=== PATIENT | female | born 1930 | race Caucasian/White ===

== ENCOUNTER 2016-05-26 14:22 | Inpatient (IN) | payer OTHER ==
[~2016-05-26] VITALS: Ht 167.6 cm; Wt 60.0 kg
[~2016-05-26 14:22] MED LIST: CMD6 PO; CRG125 PO; FLNIN NAE; LEVO100T84 PO; LISI-461 PO; MULT-506 PO; SIMV20TA2 PO
[2016-05-26] MEDS ORDERED: SODIUM CHLORIDE 0.9% 1000ML 1,000 ML IV STA (16:22)
[2016-05-26] MEDS ORDERED: ASPI81TA28 PO (16:34)
[2016-05-26] MEDS ORDERED: CARV6.252 PO (16:34)
[2016-05-26] MEDS ORDERED: CARV3.122 PO (16:34)
[2016-05-26] MEDS ORDERED: LEVO75TA PO (16:34)
[2016-05-26] MEDS ORDERED: OXGN (16:34)
[2016-05-26] MEDS ORDERED: LSNP/30 PO (16:34)
[2016-05-26] MEDS ORDERED: MAGN400T6 PO (16:34)
--- NOTE | 2016-05-26 16:48 | DIAGNOSTIC IMAGING REPORT ---
SINGLE VIEW CHEST CLINICAL HISTORY: Generalized weakness. FINDINGS: An AP, portable, upright chest radiograph is obtained. No prior studies are available for comparison at the time of dictation. The examination is degraded by portable technique and patient rotation. The heart is mildly enlarged and there is atherosclerotic calcification of the thoracic aorta. The pulmonary vasculature is noncongested. There is mild left basilar atelectasis. The lungs and pleural spaces are otherwise clear. Biapical scarring is observed. No pneumothorax is seen. The skeletal structures are osteopenic. The bony thorax is grossly intact. IMPRESSION: Cardiomegaly with no acute cardiopulmonary abnormality. Electronically signed by: Ildefonso Lorenz M.D. 05/26/2016 4:47 PM
--- NOTE | 2016-05-26 16:59 | EMERGENCY ROOM VISIT NOTE ---
History Report prepared by Alhaji: Eliseo Blake Under the Supervision of: Dr. Neelam Avalos M.D. First contact with patient: 16:11 Chief Complaint: WEAKNESS Stated Complaint: WEAKNESS, STOKE SYMPTOMS, REFERRED BY DR Chaudhari Triage Summary: Triage Note: pt reports generalized weakness sine Sunday. Pt was seen by pcp today and sent to ed for further evaluation. pt alert and oriented x 4 in triage. History of Present Illness The patient is an 85 year old female who presents to the Emergency Room with complaints of persistent weakness that has worsened over the past week. The patient noticed the weakness 4 days ago when she had difficulty trying to get up off of the toilet. She has also been struggling more to walk with her walker more than normal. Per patient and patient's family, her facial droop has been worsening over the past week. The patient notes that the weakness is both- sided. She also complains of being more fatigued than usual, has been experiencing some shortness of breath with exertion, and has a cough. The patient denies feeling any pain, fever, increased confusion, difficulty talking , abdominal pain, black or bloody stools, urinary symptoms, or chest pain. Source of History: patient Onset: the past week Position: other (global) Timing: worsening, other (persistent) Associated Symptoms: + SOB (with exertion), + cough, + fatigue, No abdominal pain, No chest pain, No fevers, No hematochezia, No melena, No urinary symptoms Note: Associated symptoms: worsening facial droop Denies: pain, confusion, difficulty talking Review of Systems See HPI for pertinent positives & negatives. A total of 10 systems reviewed and were otherwise negative. Past Medical & Surgical Medical Problems: (1) Sinusitis, acute Family History Patient reports no known family medical history. Social History Smoking Status: Never Smoker Marital Status: Housing Status: lives with family Occupation Status: unemployed Current/Historical Medications Scheduled Aspirin (Aspirin Ec), 81 MG PO QPM Carvedilol (Coreg), 6.25 MG PO QAM Carvedilol (Coreg), 3.125 MG PO QPM Levothyroxine Sodium (Synthroid), 75 MCG PO QAM Lisinopril (Zestril), 30 MG PO QAM Magnesium Oxide (Mag-Ox), 400 MG PO QAM Multivitamin (Multivitamin), 1 TAB PO DAILY Oxygen (Oxygen), 2 LITERS NA PRN Simvastatin (Zocor), 20 MG PO QPM Allergies Coded Allergies: No Known Allergies (Verified , *, 05/26/16) Physical Exam Vital Signs Date Time Temp Pulse Resp B/P Pulse Ox O2 Delivery O2 Flow Rate FiO2 05/26/16 19:33 68 22 163/77 95 Room Air 05/26/16 17:26 61 16 125/62 96 Room Air 05/26/16 16:15 65 05/26/16 16:02 61 20 152/65 96 Room Air 05/26/16 14:27 36.6 85 18 119/59 98 Room Air Physical Exam Vital signs reviewed. General: Well-appearing female, in no significant distress. HEENT: No scleral icterus, PERRLA, neck supple. Atraumatic. Mild right nasal labial fold flattening at rest, resolves with accentuation of facial muscles. Cardiovascular: Regular rate and rhythm, no extra sounds. Pulmonary: Clear to auscultation bilaterally, normal work of breathing. Abdomen: Soft, nontender, nondistended, positive bowel sounds. Musculoskeletal: Atraumatic, no peripheral edema. Neurologic: Patient awake alert and oriented x 3, full strength in all 4 extremities. Cranial nerves 2 through 12 grossly intact. Cerebellar exam intact. Skin: Warm, dry, no rash Medical Decision & Procedures ER Provider Diagnostic Interpretation: X-ray results as stated below per my interpretation and radiologist interpretation. Other radiology results as stated below per my review and radiologist interpretation: CT SCAN OF THE BRAIN WITHOUT IV CONTRAST CLINICAL HISTORY: Generalized weakness. Left-sided facial droop. COMPARISON STUDY: No priors. TECHNIQUE: Unenhanced axial CT scan of the brain is performed from the vertex to the skull base. The examination is modestly degraded by motion artifact. CT DOSE: 749.40 mGy.cm FINDINGS: Brain parenchyma: There are age-related involutional changes noting mild subcortical and periventricular microangiopathic change. There is no hemorrhage, mass effect, or evidence of acute territorial ischemia by CT criteria. Minor-white matter is preserved. No extra-axial fluid collection is seen. Ventricles, sulci, cisterns: Prominent secondary to involutional change. Intracranial vasculature: There is atherosclerotic calcification of the cavernous carotid and vertebral arteries. Calvarium: Unremarkable. Sinuses and mastoids: There is near complete opacification of the right maxillary antrum which contains hyperdense secretions. Trace mucosal thickening is present in the left maxillary antrum. There is mild mucosal thickening within the ethmoid and sphenoid sinuses. The right frontal sinus appears opacified. The mastoid air cells are well pneumatized. Orbits: The bony orbits are grossly intact. There is a left-sided ocular lens implant. IMPRESSION: 1. There is no hemorrhage, mass effect, or evidence of acute territorial ischemia by CT criteria. 2. Paranasal sinus disease as above. Electronically signed by: Ildefonso Lorenz M.D. 05/26/2016 5:23 PM SINGLE VIEW CHEST CLINICAL HISTORY: Generalized weakness. FINDINGS: An AP, portable, upright chest radiograph is obtained. No prior studies are available for comparison at the time of dictation. The examination is degraded by portable technique and patient rotation. The heart is mildly enlarged and there is atherosclerotic calcification of the thoracic aorta. The pulmonary vasculature is noncongested. There is mild left basilar atelectasis. The lungs and pleural spaces are otherwise clear. Biapical scarring is observed. No pneumothorax is seen. The skeletal structures are osteopenic. The bony thorax is grossly intact. IMPRESSION: Cardiomegaly with no acute cardiopulmonary abnormality. Electronically signed by: Ildefonso Lorenz M.D. 05/26/2016 4:47 PM Laboratory Results 05/26/16 16:58 Red Blood Count 4.28, Mean Corpuscular Volume 99.3, Mean Corpuscular Hemoglobin 34.3, Mean Corpuscular Hemoglobin Concent 34.6, Mean Platelet Volume 10.7, Neutrophils (%) (Auto) 50.8, Lymphocytes (%) (Auto) 29.6, Monocytes (%) (Auto) 18.0, Eosinophils (%) (Auto) 0.8, Basophils (%) (Auto) 0.6, Neutrophils # (Auto ) 2.66, Lymphocytes # (Auto) 1.55, Monocytes # (Auto) 0.94, Eosinophils # (Auto ) 0.04, Basophils # (Auto) 0.03 05/26/16 16:58 Test 05/26/16 16:58 05/26/16 17:09 05/26/16 17:40 White Blood Count 5.23 K/uL (4.8-10.8) Red Blood Count 4.28 M/uL (4.2-5.4) Hemoglobin 14.7 g/dL (12.0-16.0) Hematocrit 42.5 % (37-47) Mean Corpuscular Volume 99.3 fL (80-100) Mean Corpuscular Hemoglobin 34.3 pg (25-34) Mean Corpuscular Hemoglobin Concent 34.6 g/dl (32-36) Platelet Count 217 K/uL (130-400) Mean Platelet Volume 10.7 fL (7.4-10.4) Neutrophils (%) (Auto) 50.8 % Lymphocytes (%) (Auto) 29.6 % Monocytes (%) (Auto) 18.0 % Eosinophils (%) (Auto) 0.8 % Basophils (%) (Auto) 0.6 % Neutrophils # (Auto) 2.66 K/uL (1.4-6.5) Lymphocytes # (Auto) 1.55 K/uL (1.2-3.4) Monocytes # (Auto) 0.94 K/uL (0.11-0.59) Eosinophils # (Auto) 0.04 K/uL (0-0.5) Basophils # (Auto) 0.03 K/uL (0-0.2) RDW Standard Deviation 48.1 fL (36.4-46.3) RDW Coefficient of Variation 13.4 % (11.5-14.5) Immature Granulocyte % (Auto) 0.2 % Immature Granulocyte # (Auto) 0.01 K/uL (0.00-0.02) Anion Gap 15.0 mmol/L (3-11) Est Creatinine Clear Calc Drug Dose 43.9 ml/min Estimated GFR () 66.7 Estimated GFR (Non- 57.6 BUN/Creatinine Ratio 30.7 (10-20) Calcium Level 8.7 mg/dl (8.5-10.1) Magnesium Level 2.0 mg/dl (1.8-2.4) Total Bilirubin 0.6 mg/dl (0.2-1) Direct Bilirubin 0.2 mg/dl (0-0.2) Aspartate Amino Transf (AST/SGOT) 29 U/L (15-37) Alanine Aminotransferase (ALT/SGPT) 19 U/L (12-78) Alkaline Phosphatase 55 U/L (45-117) Total Creatine Kinase 32 U/L (26-192) Creatine Kinase MB 3.0 ng/ml (0.5-3.6) Creatine Kinase MB Ratio 9.4 (0-3.0) Total Protein 7.2 gm/dl (6.4-8.2) Albumin 3.3 gm/dl (3.4-5.0) Bedside Troponin I 0.000 ng/ml (0-0.045) Urine Color DK YELLOW Urine Appearance CLEAR (CLEAR) Urine pH 5.0 (4.5-7.5) Urine Specific [place] 1.017 (1.000-1.030) Urine Protein NEG (NEG) Urine Glucose (UA) NEG (NEG) Urine Ketones 2+ (NEG) Urine Occult Blood NEG (NEG) Urine Nitrite NEG (NEG) Urine Bilirubin NEG (NEG) Urine Urobilinogen NEG (NEG) Urine Leukocyte Esterase NEG (NEG) Laboratory results per my review. Medications Administered Medications (Trade) Dose Ordered Sig/Rupinder Route Start Time Stop Time Status Last Admin Dose Admin Sodium Chloride 1,000 ml @ 125 mls/hr Q8H STAT IV 05/26/16 16:22 05/26/16 21:50 DC 05/26/16 17:31 125 MLS/HR Ampicillin Sodium/ Sulbactam Sodium/ Sodium Chloride (Unasyn Inj/Nss 100ml) 108 ml @ 200 mls/hr ONE ONCE IV 05/26/16 19:00 05/26/16 19:32 DC 05/26/16 19:32 200 MLS/HR ED Course 1615: Past medical records reviewed. The patient was evaluated in room A12. A complete history and physical examination was performed. 1622: Ordered NSS 1000 ml @ 125 mls/hr IV. 1934: At this time, I consulted with Dr. Adams - Hospitalist [facility] about the patient's case and he agreed to accept the patient for further evaluation. Medical Decision Differential diagnosis: Etiologies such as metabolic, infection, hypo/hyperglycemia, electrolyte abnormalities, cardiac sources, intracerebral event, toxicologic, neurologic, as well as others were entertained. current condition. This patient was evaluated and appeared to be in no significant distress. IV access was obtained and laboratory work was drawn. Patient was placed on the classroom monitor and found to be in a normal sinus rhythm. Physical examination is fairly unrevealing. CT scan of the head was performed and reveals no evidence of acute intracranial pathology, there is significant opacification of the right frontal and maxillary sinuses. Patient's laboratory work reveals a normal white blood cell count, negative cardiac enzymes. Urinalysis is clear. She was gently hydrated with normal saline solution. Patient was administered IV Unasyn. Given her diffuse weakness and inability to ambulate safely, she will be evaluated by the hospitalist service for further management. Patient's family is aware of the plan and agrees. Consults Time Called: 1929 Consulting Physician: Dr. Adams - Hospitalist [facility] [place] Returned Call: 1933 At this time, I consulted with Dr. Adams about the patient's case and he agreed to accept the patient for further evaluation. Impression Primary Impression: Frontal sinusitis Additional Impressions: Maxillary sinusitis, Ambulatory dysfunction, Vertigo Scribe Attestation The scribe's documentation has been prepared under my direction and personally reviewed by me in its entirety. I confirm that the note above accurately reflects all work, treatment, procedures, and medical decision making performed by me. Departure Information Dispostion Being Evaluated By Hospitalist Referrals RV. Vieira MD (PCP)
--- NOTE | 2016-05-26 17:25 | DIAGNOSTIC IMAGING REPORT ---
CT SCAN OF THE BRAIN WITHOUT IV CONTRAST CLINICAL HISTORY: Generalized weakness. Left-sided facial droop. COMPARISON STUDY: No priors. TECHNIQUE: Unenhanced axial CT scan of the brain is performed from the vertex to the skull base. The examination is modestly degraded by motion artifact. CT DOSE: 749.40 mGy.cm FINDINGS: Brain parenchyma: There are age-related involutional changes noting mild subcortical and periventricular microangiopathic change. There is no hemorrhage, mass effect, or evidence of acute territorial ischemia by CT criteria. Minor-white matter is preserved. No extra-axial fluid collection is seen. Ventricles, sulci, cisterns: Prominent secondary to involutional change. Intracranial vasculature: There is atherosclerotic calcification of the cavernous carotid and vertebral arteries. Calvarium: Unremarkable. Sinuses and mastoids: There is near complete opacification of the right maxillary antrum which contains hyperdense secretions. Trace mucosal thickening is present in the left maxillary antrum. There is mild mucosal thickening within the ethmoid and sphenoid sinuses. The right frontal sinus appears opacified. The mastoid air cells are well pneumatized. Orbits: The bony orbits are grossly intact. There is a left-sided ocular lens implant. IMPRESSION: 1. There is no hemorrhage, mass effect, or evidence of acute territorial ischemia by CT criteria. 2. Paranasal sinus disease as above. Electronically signed by: Ildefonso Lorenz M.D. 05/26/2016 5:23 PM
[2016-05-26 17:34] LABS: BASO % 0.6 %; BASO ABS # 0.03 K/uL (0-0.2); COMPLETE YES; EOS % 0.8 %; HEMATOCRIT 42.5 % (37-47); IG% 0.2 %; LYMPH % 29.6 %; LYMPH ABS # 1.55 K/uL (1.2-3.4); MEAN CELL VOLUME 99.3 fL (80-100); MEAN CORPUSCULAR HEMOGLOBIN 34.3 pg (25-34); MEAN CORPUSCULAR HGB CONC 34.6 g/dl (32-36); MEAN PLATELET VOLUME 10.7 fL (7.4-10.4); NEUT % 50.8 %; PLATELET COUNT 217 K/uL (130-400); RED BLOOD COUNT 4.28 M/uL (4.2-5.4); WHITE BLOOD COUNT 5.23 K/uL (4.8-10.8)
[2016-05-26 17:59] LABS: URINE APPEARANCE CLEAR (CLEAR); URINE COLOR DK YELLOW; URINE NITRITE NEG (NEG); URINE SPECIFIC GRAVITY 1.017 (1.000-1.030); UROBILINOGEN NEG (NEG); ZZURINE CULT IF INDIC CATH NO
[2016-05-26 18:03] LABS: URINE BILIRUBIN NEG (NEG)
[2016-05-26 18:04] LABS: MANUAL MICROSCOPIC REQUIRED? NO; REVIEW REQ? NO
[2016-05-26 18:19] LABS: BUN/CREATININE RATIO 30.7 (10-20); CALCIUM 8.7 mg/dl (8.5-10.1); CKMB/CK RATIO 9.4 (0-3.0); CREATININE 0.92 mg/dl (0.60-1.20); POTASSIUM 4.4 mmol/L (3.5-5.1)
[2016-05-26] MEDS ORDERED: AMPICILLIN/SULBACTAM SOD INJ 3,000 MG in SODIUM CHLORIDE 0.9% 100ML 100 ML IV ONE (19:00)
[2016-05-26] MEDS ORDERED: NSS + 20MEQ KCL 1000ML 1,000 ML IV SCH (19:57)
[2016-05-26] MEDS ORDERED: ACETAMINOPHEN 325 MG TAB PO PRN (20:00)
[2016-05-26] MEDS ORDERED: ONDANSETRON INJ 2 MG/ML 2 ML VIAL IV PRN (20:00)
[2016-05-26 21:35] VITALS: BP 145/77; PULSE 63; TEMP 36.7; O2SAT 97
--- NOTE | 2016-05-26 22:03 | History and Physical ---
History & Physical Date & Time of Service: May 26, 2016 at 21:42 Chief Complaint: Weakness, Stoke Symptoms, Referred By Primary Care Physician: RV. Vieira MD History of Present Illness Source: patient, family The patient is an 85-year-old female who presents emergency department with complaint of worsening weakness over the past week, to the point that she is not able to get up off the commode earlier in the day today. Her son who is with her, reports that she was struggling more to walk and had more imbalance and near falls. Son reports that his mother's facial droop may been worsening over the past week. She reports that she comes some shortness of breath with exertion, has an occasional cough, has denied any chest pain. Family History Patient reports no known family medical history. Social History Smoking Status: Never Smoker Smokeless Tobacco Use: No Alcohol Use: none Drug Use: none Marital Status: Occupational Status: unemployed Immunizations History of Influenza Vaccine: Yes History of Tetanus Vaccine?: Yes Tetanus Immunization Date: Feb 19, 2005 History of Pneumococcal: Yes Pneumococcal Date: Jul 22, 2003 History of Hepatitis B Vaccine: No Multi-Drug Resistant Organisms History of MDRO: No Allergies Coded Allergies: No Known Allergies (Verified , *, 05/26/16) Home Medications Scheduled Aspirin (Aspirin Ec), 81 MG PO QPM Carvedilol (Coreg), 6.25 MG PO QAM Carvedilol (Coreg), 3.125 MG PO QPM Levothyroxine Sodium (Synthroid), 75 MCG PO QAM Lisinopril (Zestril), 30 MG PO QAM Magnesium Oxide (Mag-Ox), 400 MG PO QAM Multivitamin (Multivitamin), 1 TAB PO DAILY Oxygen (Oxygen), 2 LITERS NA PRN Simvastatin (Zocor), 20 MG PO QPM Review of Systems The patient denies chest pain, palpitations, lower extremity swelling, vision change, hearing change, sore throat, fevers, chills, sweats, weight change, nausea, vomiting, abdominal pain, pelvic pain, blood in urine or stool, dysuria , urinary frequency or urgency, headache, rash, abnormal bruising or bleeding, focal weakness, arthralgias or myalgias, back or neck pain, night sweats, or allergy symptoms. The review of systems is otherwise negative other than for that already noted above, and at least 10 systems have been reviewed. Physical Exam Vital Signs Date Time Temp Pulse Resp B/P Pulse Ox O2 Delivery O2 Flow Rate FiO2 05/26/16 21:35 36.7 63 19 145/77 97 Room Air 05/26/16 21:04 66 15 135/63 98 Room Air 05/26/16 20:37 67 05/26/16 19:33 68 22 163/77 95 Room Air 05/26/16 17:26 61 16 125/62 96 Room Air 05/26/16 16:15 65 05/26/16 16:02 61 20 152/65 96 Room Air 05/26/16 14:27 36.6 85 18 119/59 98 Room Air The patient is an 85-year-old female appearing stated age, who is awake, alert and oriented 3, normocephalic and atraumatic, lying in bed and in no acute distress. HEENT--PERRL, EOMI, mucous membranes and oropharynx dry. Neck--supple, no JVD or bruits, thyroid normal, trachea midline, no adenopathy. Heart--normal S1 and S2, no extra beats, no murmurs, rubs or gallops. Lungs--clear bilaterally with good air movement, no respiratory distress, no accessory muscle use. Abdomen--normal bowel sounds and soft, nontender and nondistended, no hernias or masses, no organomegaly. Extremities--no cyanosis, clubbing or edema. There are good distal pulses b/l. Dermatologic--normal skin turgor, normal color, warm and dry, no abnormal lymph nodes, no rash. Neurologic--cranial nerves II through XII grossly intact. Psychiatric--normal affect. Diagnostics Laboratory Results Results Past 24 Hours Test 05/26/16 16:58 05/26/16 17:09 05/26/16 17:40 Range/Units White Blood Count 5.23 4.8-10.8 K/uL Red Blood Count 4.28 4.2-5.4 M/uL Hemoglobin 14.7 12.0-16.0 g/dL Hematocrit 42.5 37-47 % Mean Corpuscular Volume 99.3 80-100 fL Mean Corpuscular Hemoglobin 34.3 25-34 pg Mean Corpuscular Hemoglobin Concent 34.6 32-36 g/dl Platelet Count 217 130-400 K/uL Mean Platelet Volume 10.7 7.4-10.4 fL Neutrophils (%) (Auto) 50.8 % Lymphocytes (%) (Auto) 29.6 % Monocytes (%) (Auto) 18.0 % Eosinophils (%) (Auto) 0.8 % Basophils (%) (Auto) 0.6 % Neutrophils # (Auto) 2.66 1.4-6.5 K/uL Lymphocytes # (Auto) 1.55 1.2-3.4 K/uL Monocytes # (Auto) 0.94 0.11-0.59 K/uL Eosinophils # (Auto) 0.04 0-0.5 K/uL Basophils # (Auto) 0.03 0-0.2 K/uL RDW Standard Deviation 48.1 36.4-46.3 fL RDW Coefficient of Variation 13.4 11.5-14.5 % Immature Granulocyte % (Auto) 0.2 % Immature Granulocyte # (Auto) 0.01 0.00-0.02 K/uL Sodium Level 137 136-145 mmol/L Potassium Level 4.4 3.5-5.1 mmol/L Chloride Level 98 98-107 mmol/L Carbon Dioxide Level 24 21-32 mmol/L Anion Gap 15.0 3-11 mmol/L Blood Urea Nitrogen 28 7-18 mg/dl Creatinine 0.92 0.60-1.20 mg/dl Est Creatinine Clear Calc Drug Dose 43.9 ml/min Estimated GFR () 66.7 Estimated GFR (Non- 57.6 BUN/Creatinine Ratio 30.7 10-20 Random Glucose 52 70-99 mg/dl Calcium Level 8.7 8.5-10.1 mg/dl Magnesium Level 2.0 1.8-2.4 mg/dl Total Bilirubin 0.6 0.2-1 mg/dl Direct Bilirubin 0.2 0-0.2 mg/dl Aspartate Amino Transf (AST/SGOT) 29 15-37 U/L Alanine Aminotransferase (ALT/SGPT) 19 12-78 U/L Alkaline Phosphatase 55 45-117 U/L Total Creatine Kinase 32 26-192 U/L Creatine Kinase MB 3.0 0.5-3.6 ng/ml Creatine Kinase MB Ratio 9.4 0-3.0 Total Protein 7.2 6.4-8.2 gm/dl Albumin 3.3 3.4-5.0 gm/dl Bedside Troponin I 0.000 0-0.045 ng/ml Urine Color DK YELLOW Urine Appearance CLEAR CLEAR Urine pH 5.0 4.5-7.5 Urine Specific Webster 1.017 1.000-1.030 Urine Protein NEG NEG Urine Glucose (UA) NEG NEG Urine Ketones 2+ NEG Urine Occult Blood NEG NEG Urine Nitrite NEG NEG Urine Bilirubin NEG NEG Urine Urobilinogen NEG NEG Urine Leukocyte Esterase NEG NEG Diagnostic Radiology Patient Name: AUSTIN GREENE Unit Number: [id number] Dictated: 05/26/161719 Transcribed: 05/26/161719 EV Printed Date/Time: [~ rep prt dt]/[~ rep prt tm] [~ rep ct labl] - [~ rep ct ivnm] [facility] [place] [address] Dictated: 05/26/161719 Transcribed: 05/26/161719 EV Printed Date/Time: [~ rep prt dt]/[~ rep prt tm] [~ rep ct labl] - [~ rep ct ivnm] CT SCAN OF THE BRAIN WITHOUT IV CONTRAST CLINICAL HISTORY: Generalized weakness. Left-sided facial droop. COMPARISON STUDY: No priors. TECHNIQUE: Unenhanced axial CT scan of the brain is performed from the vertex to the skull base. The examination is modestly degraded by motion artifact. CT DOSE: 749.40 mGy.cm FINDINGS: Brain parenchyma: There are age-related involutional changes noting mild subcortical and periventricular microangiopathic change. There is no hemorrhage, mass effect, or evidence of acute territorial ischemia by CT criteria. Minor-white matter is preserved. No extra-axial fluid collection is seen. Ventricles, sulci, cisterns: Prominent secondary to involutional change. Intracranial vasculature: There is atherosclerotic calcification of the cavernous carotid and vertebral arteries. Calvarium: Unremarkable. Sinuses and mastoids: There is near complete opacification of the right maxillary antrum which contains hyperdense secretions. Trace mucosal thickening is present in the left maxillary antrum. There is mild mucosal thickening within the ethmoid and sphenoid sinuses. The right frontal sinus appears opacified. The mastoid air cells are well pneumatized. Orbits: The bony orbits are grossly intact. There is a left-sided ocular lens implant. IMPRESSION: 1. There is no hemorrhage, mass effect, or evidence of acute territorial ischemia by CT criteria. 2. Paranasal sinus disease as above. Electronically signed by: Ildefonso Lorenz M.D. 05/26/2016 5:23 PM The status of this report is Signed. Draft = Not yet reviewed or approved by Radiologist. Signed = Reviewed and approved by Radiologist. <AttendingPhy></AttendingPhy> <FamilyPhy>RV. Vieira MD</ FamilyPhy> <PrimaryPhy>RV. Vieira MD</PrimaryPhy> <UnitNumber> [id number]</UnitNumber> <VisitNumber>[id number]</VisitNumber> <PatientName> AUSTIN GREENE</PatientName> <DateOfBirth>1930</DateOfBirth> <Location> [facility]</Location> <ServiceDate>05/26/16</ServiceDate> <MNE>ESINDI</MNE> < OrderingPhy>Neelam Avalos M.D.</OrderingPhy> <OrderingPhyMNE>f rep ord dr palacios</OrderingPhyMNE> <DictatingPhyMNE>f rep dict dr palacios</DictatingPhyMNE> < CCListMNE>f rep ct mne</CCListMNE> <AdmittingPhyMNE>f pt admit dr palacios</ AdmittingPhyMNE> <AttendingPhyMNE>f pt attend dr palacios</AttendingPhyMNE> <ConsultingPhyMNE>f pt consult dr palacios</ConsultingPhyMNE> <FamilyPhyMNE>f pt fam dr palacios</FamilyPhyMNE> <OtherPhyMNE>f pt other dr palacios</OtherPhyMNE> < PrimaryPhyMNE>f pt prim care dr palacios</PrimaryPhyMNE> <ReferringPhyMNE>f pt referring dr palacios</ReferringPhyMNE> Patient Name: AUSTIN GREENE Unit Number: [id number] Dictated: 05/26/161644 Transcribed: 05/26/161644 EV Printed Date/Time: [~ rep prt dt]/[~ rep prt tm] [~ rep ct labl] - [~ rep ct ivnm] [facility] [place] [address] Dictated: 05/26/161644 Transcribed: 05/26/161644 EV Printed Date/Time: [~ rep prt dt]/[~ rep prt tm] [~ rep ct labl] - [~ rep ct ivnm] CLINICAL HISTORY: Generalized weakness. FINDINGS: An AP, portable, upright chest radiograph is obtained. No prior studies are available for comparison at the time of dictation. The examination is degraded by portable technique and patient rotation. The heart is mildly enlarged and there is atherosclerotic calcification of the thoracic aorta. The pulmonary vasculature is noncongested. There is mild left basilar atelectasis. The lungs and pleural spaces are otherwise clear. Biapical scarring is observed. No pneumothorax is seen. The skeletal structures are osteopenic. The bony thorax is grossly intact. IMPRESSION: Cardiomegaly with no acute cardiopulmonary abnormality. Electronically signed by: Ildefonso Lorenz M.D. 05/26/2016 4:47 PM The status of this report is Signed. Draft = Not yet reviewed or approved by Radiologist. Signed = Reviewed and approved by Radiologist. <AttendingPhy></AttendingPhy> <FamilyPhy>RV. Vieira MD</ FamilyPhy> <PrimaryPhy>RV. Vieira MD</PrimaryPhy> <UnitNumber> [id number]</UnitNumber> <VisitNumber>[id number]</VisitNumber> <PatientName> AUSTIN GREENE</PatientName> <DateOfBirth>1930</DateOfBirth> <Location> [facility]</Location> <ServiceDate>05/26/16</ServiceDate> <MNE>ESINDI</MNE> < OrderingPhy>Neelam Avalos M.D.</OrderingPhy> <OrderingPhyMNE>f rep ord dr palacios</OrderingPhyMNE> <DictatingPhyMNE>f rep dict dr palacios</DictatingPhyMNE> < CCListMNE>f rep ct philip</CCListMNE> <AdmittingPhyMNE>f pt admit dr palacios</ AdmittingPhyMNE> <AttendingPhyMNE>f pt attend dr palacios</AttendingPhyMNE> <ConsultingPhyMNE>f pt consult dr palacios</ConsultingPhyMNE> <FamilyPhyMNE>f pt fam dr palacios</FamilyPhyMNE> <OtherPhyMNE>f pt other dr palacios</OtherPhyMNE> < PrimaryPhyMNE>f pt prim care dr palacios</PrimaryPhyMNE> <ReferringPhyMNE>f pt referring dr palacios</ReferringPhyMNE> EKG EKG shows normal sinus rhythm with first-degree heart block at a rate of 59, with left axis deviation, left bundle-branch block, and no acute ST-T changes. Impression Assessment and Plan Progressive generalized weakness, dehydration, acute sinusitis, hypoglycemia-- the patient will be admitted to the medical floor, as she is unable to take care of herself at home. She will be placed on D5 normal saline with potassium chloride 20 mEq at 100 ML's per hour, ceftriaxone 1 g IV daily, Zofran 4 mg IV every 6 hours when necessary, and pantoprazole 40 mg IV daily. Hypertension--continue enteric coated aspirin 81 mg by mouth every afternoon, carvedilol 3.125 mg by mouth every afternoon and 6.25 mg by mouth every morning with hold parameters. We will hold lisinopril 30 mg by mouth every morning and magnesium oxide 40 mg by mouth every morning. Hypothyroidism--continue levothyroxine sodium 75 g by mouth every morning. Hyperlipidemia--continue simvastatin 20 mg by mouth every afternoon. General debilitation--consult PT and OT. Level of Care Med/Surg Advanced Directives Existing Advance Directive: No Existing Living Will: No Existing Power of Vending Machine Mechanic: No Resuscitation Status FULL RESUSCITATION VTE Prophylaxis VTE Risk Assessment Done? Y/N: Yes Risk Level: Moderate Given or contraindicated: SCD's
[2016-05-26] MEDS: SIMVASTATIN 20 MG TAB PO SCH (22:25)
[2016-05-26] MEDS: D5NSS + 20MEQ KCL 1,000 ML IV SCH (22:25)
[2016-05-26] MEDS: CEFTRIAXONE SOD INJ 1 GM in DEXTROSE 5% ADD-VANTAGE 50ML 50 ML IV SCH (22:25)
[2016-05-26] MEDS: CARVEDILOL 3.125 MG TAB PO SCH (22:26)
[2016-05-26] MEDS: ASPIRIN 81 MG ECTAB PO SCH (22:26)
[2016-05-26] MEDS ORDERED: IV FLUIDS COMPLETED PRN (23:30)
[2016-05-26 23:58] VITALS: BP 136/71; PULSE 64; TEMP 36.5; O2SAT 96
[2016-05-27 01:30] VITALS: O2SAT 97; Ht 167.6 cm; Wt 60.0 kg
[2016-05-27] MEDS: D5NSS + 20MEQ KCL 1,000 ML IV SCH ×3 (05:36→21:47)
[2016-05-27 06:00] LABS: BASO % 0.4 %; BASO ABS # 0.02 K/uL (0-0.2); COMPLETE YES; EOS % 2.2 %; HEMATOCRIT 37.2 % (37-47); IG% 0.2 %; LYMPH % 28.7 %; LYMPH ABS # 1.46 K/uL (1.2-3.4); MEAN CELL VOLUME 96.1 fL (80-100); MEAN CORPUSCULAR HEMOGLOBIN 33.3 pg (25-34); MEAN CORPUSCULAR HGB CONC 34.7 g/dl (32-36); MEAN PLATELET VOLUME 10.6 fL (7.4-10.4); MONO % 16.5 %; PLATELET COUNT 184 K/uL (130-400); RED BLOOD COUNT 3.87 M/uL (4.2-5.4); WHITE BLOOD COUNT 5.09 K/uL (4.8-10.8)
[2016-05-27 06:09] LABS: INR 1.1 (0.9-1.1); PARTIAL THROMBOPLASTIN RATIO 1.1
[2016-05-27 06:26] LABS: ALT/SGPT 17 U/L (12-78); AST/SGOT 21 U/L (15-37); BLOOD UREA NITROGEN 20 mg/dl (7-18); BUN/CREATININE RATIO 27.9 (10-20); CALCIUM 7.6 mg/dl (8.5-10.1); CARBON DIOXIDE 25 mmol/L (21-32); CHLORIDE 105 mmol/L (98-107); CREATININE 0.72 mg/dl (0.60-1.20); GLUCOSE 133 mg/dl (70-99); MAGNESIUM 1.8 mg/dl (1.8-2.4); POTASSIUM 4.1 mmol/L (3.5-5.1); SODIUM 140 mmol/L (136-145)
[2016-05-27] MEDS: LEVOTHYROXINE 75 MCG TAB PO SCH (06:26)
[2016-05-27 06:45] LABS: ALKALINE PHOSPHATASE 45 U/L (45-117)
[2016-05-27 07:32] VITALS: BP 151/76; PULSE 70; TEMP 36.8; O2SAT 93
[2016-05-27] MEDS ORDERED: INFLUENZA VIRUS QUAD VACCINE 0.5 ML SYR IM. ONE (08:00)
[2016-05-27] MEDS ORDERED: PNEUMOCOCCAL ADMINISTRATION CHARGE ONE (08:00)
[2016-05-27] MEDS ORDERED: INFLUENZA ADMINISTRATION CHARGE ONE (08:00)
[2016-05-27] MEDS ORDERED: PNEUMOCOCCAL POLYSACCHARIDES 25 MCG/0.5 ML VIAL/SYR IM. ONE (08:00)
[2016-05-27] MEDS: MAGNESIUM OXIDE 400 MG TAB PO SCH (08:50)
[2016-05-27] MEDS: MULTIVITAMIN TAB PO SCH (08:50)
[2016-05-27] MEDS: CARVEDILOL 6.25 MG TAB PO SCH (08:51)
[2016-05-27] MEDS: LACTOBACILLUS ACIDOPHILUS (FLORANEX) TAB PO SCH ×4 (08:51→16:54)
[2016-05-27 15:07] VITALS: BP 150/85; PULSE 71; TEMP 36.7; O2SAT 94
--- NOTE | 2016-05-27 18:03 | Progress Note ---
Subjective Date of Service: May 27, 2016. Subjective Pt evaluation today including: conversation w/ patient, physical exam, chart review, lab review, review of inpatient medication list feeling weak. some congestion. facial droop old but slowly getting worse. family notes that she was living with them - they'd built the house in a way that she would have one-floor access to all she'd need, and not have to walk more than about 10ft. note that she's been with walker for quite a while but gradually getting worse for quite a while as well. she's gotten to the point that they can't take care of her in her present state. would like to see her get stronger to where she can live with them again, but know that right now it would be too dangerous. Problem List Medical Problems: (1) Ambulatory dysfunction Status: Acute (2) Frontal sinusitis Status: Acute (3) Maxillary sinusitis Status: Acute (4) Vertigo Status: Acute Review of Systems ros otherwise negative except for as above Objective Vital Signs Date Time Temp Pulse Resp B/P Pulse Ox O2 Delivery O2 Flow Rate FiO2 05/27/16 16:05 Room Air 05/27/16 15:07 36.7 71 20 150/85 94 Room Air 05/27/16 08:25 Room Air 05/27/16 07:32 36.8 70 18 151/76 93 Room Air 05/27/16 01:30 97 Room Air 05/26/16 23:58 36.5 64 17 136/71 96 Room Air 05/26/16 21:40 63 19 145/77 97 05/26/16 21:35 36.7 63 19 145/77 97 Room Air 05/26/16 21:04 66 15 135/63 98 Room Air 05/26/16 20:37 67 05/26/16 19:33 68 22 163/77 95 Room Air Physical Exam General Appearance: no apparent distress Eyes: EOMI ENT: hearing grossly normal, + pertinent finding (tenderness over maxillary sinuses) Respiratory/Chest: lungs clear, normal breath sounds, no respiratory distress, no accessory muscle use Cardiovascular: regular rate, rhythm Abdomen: non tender, soft Extremities: normal range of motion Neurologic/Psychiatric: teacher adventure education II-XII nml as tested (does have L sided facial droop but corrects with movement, and no other focal neuro deficits), no motor/ sensory deficits (see above otherwise), alert Skin: normal color Comments: MSK - significant DIFFUSE muscle wasting Laboratory Results Last 24 Hours Test 05/27/16 05:33 White Blood Count 5.09 K/uL Red Blood Count 3.87 M/uL Hemoglobin 12.9 g/dL Hematocrit 37.2 % Mean Corpuscular Volume 96.1 fL Mean Corpuscular Hemoglobin 33.3 pg Mean Corpuscular Hemoglobin Concent 34.7 g/dl Platelet Count 184 K/uL Mean Platelet Volume 10.6 fL Neutrophils (%) (Auto) 52.0 % Lymphocytes (%) (Auto) 28.7 % Monocytes (%) (Auto) 16.5 % Eosinophils (%) (Auto) 2.2 % Basophils (%) (Auto) 0.4 % Neutrophils # (Auto) 2.65 K/uL Lymphocytes # (Auto) 1.46 K/uL Monocytes # (Auto) 0.84 K/uL Eosinophils # (Auto) 0.11 K/uL Basophils # (Auto) 0.02 K/uL RDW Standard Deviation 45.7 fL RDW Coefficient of Variation 13.2 % Immature Granulocyte % (Auto) 0.2 % Immature Granulocyte # (Auto) 0.01 K/uL Prothrombin Time 12.0 SECONDS Prothromb Time International Ratio 1.1 Activated Partial Thromboplast Time 29.6 SECONDS Partial Thromboplastin Ratio 1.1 Sodium Level 140 mmol/L Potassium Level 4.1 mmol/L Chloride Level 105 mmol/L Carbon Dioxide Level 25 mmol/L Anion Gap 10.0 mmol/L Blood Urea Nitrogen 20 mg/dl Creatinine 0.72 mg/dl Est Creatinine Clear Calc Drug Dose 55.4 ml/min Estimated GFR () 89.8 Estimated GFR (Non- 77.4 BUN/Creatinine Ratio 27.9 Random Glucose 133 mg/dl Calcium Level 7.6 mg/dl Magnesium Level 1.8 mg/dl Total Bilirubin 0.4 mg/dl Direct Bilirubin < 0.1 mg/dl Aspartate Amino Transf (AST/SGOT) 21 U/L Alanine Aminotransferase (ALT/SGPT) 17 U/L Alkaline Phosphatase 45 U/L Total Protein 5.8 gm/dl Albumin 2.6 gm/dl Assessment and Plan Progressive generalized weakness, -multifactorial - family relates a story of worsening weakness followed by eating less followed by worse weakness and so on. likely dehydration and sinusitis are the "straw that broke the camel's back" -almost certainly will need SNF or rehab at this point - and then hopefully can work her way back to being able to be at home w family - but clearly not safe right now dehydration -from poor PO intake - IVFs acute sinusitis, -on rocephin - can likely change to PO abx soon hypoglycemia- -from poor reserve. dextrose in IVFs for now, follow PO intake protein/calorie malnutrition -protein supplements, open winder consult, worrisome prognostically as weak as she is hypocalcemia -check vitamin D facial droop -pt and family note this is chronic. does correct with movement. has apparently been getting more pronounced but family suspects this is because she' s been getting more gaunt with ongoing weight loss. has no other focal neuro deficits. no abrupt onset of either the drooping to begin with or the worsening - both have been gradual. does not appear stroke like for all these reasons. beyond that pt and family both decline any further w/u at this time Hypertension--continue enteric coated aspirin 81 mg by mouth every afternoon, carvedilol 3.125 mg by mouth every afternoon and 6.25 mg by mouth every morning with hold parameters. We will hold lisinopril 30 mg by mouth every morning and magnesium oxide 40 mg by mouth every morning. Hypothyroidism--continue levothyroxine sodium 75 g by mouth every morning. Hyperlipidemia--continue simvastatin 20 mg by mouth every afternoon. DVT proph -heparin SQ family confirms her ADRs to be DNR
[2016-05-27] MEDS: CARVEDILOL 3.125 MG TAB PO SCH (19:52)
[2016-05-27] MEDS: SIMVASTATIN 20 MG TAB PO SCH (19:52)
[2016-05-27] MEDS: ASPIRIN 81 MG ECTAB PO SCH (19:52)
[2016-05-27] MEDS: HEPARIN SOD 5000 UNIT/0.5 ML CARP SQ SCH (20:00)
[2016-05-27] MEDS: BOOST VANILLA PO SCH ×2 (20:04)
[2016-05-27] MEDS: CEFTRIAXONE SOD INJ 1 GM in DEXTROSE 5% ADD-VANTAGE 50ML 50 ML IV SCH (21:47)
[2016-05-28 00:07] VITALS: BP 138/73; PULSE 82; TEMP 36.6; O2SAT 96
[2016-05-28] MEDS: LEVOTHYROXINE 75 MCG TAB PO SCH (06:13)
[2016-05-28 07:17] LABS: CALCIUM 7.5 mg/dl (8.5-10.1); CREATININE 0.62 mg/dl (0.60-1.20); POTASSIUM 4.4 mmol/L (3.5-5.1)
[2016-05-28 07:33] VITALS: BP 129/71; PULSE 74; TEMP 37; O2SAT 97
[2016-05-28] MEDS: CARVEDILOL 6.25 MG TAB PO SCH (07:53)
[2016-05-28] MEDS: LACTOBACILLUS ACIDOPHILUS (FLORANEX) TAB PO SCH ×3 (07:53→17:29)
[2016-05-28] MEDS: MAGNESIUM OXIDE 400 MG TAB PO SCH (07:53)
[2016-05-28] MEDS: MULTIVITAMIN TAB PO SCH (07:53)
[2016-05-28] MEDS: HEPARIN SOD 5000 UNIT/0.5 ML CARP SQ SCH ×2 (07:56→20:27)
[2016-05-28] MEDS: BOOST VANILLA PO SCH ×6 (07:56→20:05)
[2016-05-28] MEDS: D5NSS + 20MEQ KCL 1,000 ML IV SCH (08:24)
[2016-05-28] MEDS ORDERED: SODIUM CHLORIDE 0.65% NA SOLN 45 ML (OCEAN) PRN (15:00)
[2016-05-28] MEDS ORDERED: FEXOFENADINE HCL 60 MG TAB PO ONE (15:00)
[2016-05-28 15:22] VITALS: BP 138/84; PULSE 72; TEMP 37.3; O2SAT 96
[2016-05-28] MEDS: TRIAMCINOLONE ACET NASAL SPRAY 10.8ML BTL NAE SCH (15:30)
[2016-05-28] MEDS: ASPIRIN 81 MG ECTAB PO SCH (20:06)
[2016-05-28] MEDS: SIMVASTATIN 20 MG TAB PO SCH (20:06)
[2016-05-28] MEDS: FEXOFENADINE HCL 60 MG TAB PO SCH (20:07)
[2016-05-28] MEDS: CARVEDILOL 3.125 MG TAB PO SCH (20:28)
[2016-05-28 23:59] VITALS: BP 147/77; PULSE 77; TEMP 36.7; O2SAT 92
--- NOTE | 2016-05-29 00:14 | Progress Note ---
Subjective Date of Service: May 28, 2016. Subjective Pt evaluation today including: conversation w/ patient, conversation w/ family , physical exam, chart review, lab review, review of inpatient medication list Pain: none PO Intake: fair at best patient with weeks to months of difficulty getting out of her chair, walking, etc symptoms worsened considerably this week +numbness in both legs denies myalgias Problem List Medical Problems: (1) Ambulatory dysfunction Status: Acute (2) Frontal sinusitis Status: Acute (3) Maxillary sinusitis Status: Acute (4) Vertigo Status: Acute Review of Systems Constitutional: No chills, No fever Respiratory: No cough, No shortness of breath Cardiac: No chest pain Abdomen: No pain Objective Vital Signs Date Time Temp Pulse Resp B/P Pulse Ox O2 Delivery O2 Flow Rate FiO2 05/28/16 23:59 36.7 77 18 147/77 92 Room Air 05/28/16 20:00 Room Air 05/28/16 15:22 37.3 72 20 138/84 96 05/28/16 15:15 Room Air 05/28/16 08:10 Room Air 05/28/16 07:33 37.0 74 16 129/71 97 Room Air 05/28/16 00:07 36.6 82 18 138/73 96 Nasal Cannula 2.0 Physical Exam General Appearance: no apparent distress ENT: pharynx normal Neck: no JVD Respiratory/Chest: lungs clear, no respiratory distress, no accessory muscle use Cardiovascular: regular rate, rhythm, no gallop, no murmur Abdomen: normal bowel sounds, non tender, soft, no organomegaly Extremities: no pedal edema Neurologic/Psychiatric: alert, oriented x 3, + pertinent finding (patellar reflexes 2+ b/l ) Laboratory Results Last 24 Hours Test 05/28/16 05:31 05/28/16 15:22 Sodium Level 141 mmol/L Potassium Level 4.4 mmol/L Chloride Level 109 mmol/L Carbon Dioxide Level 25 mmol/L Anion Gap 7.0 mmol/L Blood Urea Nitrogen 8 mg/dl Creatinine 0.62 mg/dl Est Creatinine Clear Calc Drug Dose 64.3 ml/min Estimated GFR () 96.6 Estimated GFR (Non- 83.4 BUN/Creatinine Ratio 13.0 Random Glucose 103 mg/dl Calcium Level 7.5 mg/dl 25-Hydroxy Vitamin D Total 46.2 ng/ml Erythrocyte Sedimentation Rate 14 mm/hr C-Reactive Protein 0.78 mg/dl Vitamin B12 Level > 2000 pg/mL Assessment and Plan 85yo female with - 1. generalized weakness - I am unclear if this symptom is from a systemic condition or a more localized process check sed rate, crp, b12, etc if normal then MRI lumbar spine 2. dehydration - improved. ok to stop fluids 3. acute sinusitis? - symptoms are likely from chronic allergies stop IV abx follow carefully add allergy meds 4. previous h/o lumbar back pain - chronic, check MRI L-spine 5. hypoglycemia - resolved 6. mild protein/calorie malnutrition continue PT/OT 7. HTN - controlled with home meds 8. hypothyroidism - check TSH to ensure euthyroid state; cont synthroid 9. hyperlipidemia - check CPK; most recent value was noraml 10. DVT proph - heparin 5000 SC Continued [facility] stay due to: multiple IV medications needed
[2016-05-29] MEDS: LEVOTHYROXINE 75 MCG TAB PO SCH (06:14)
[2016-05-29] MEDS: MAGNESIUM OXIDE 400 MG TAB PO SCH (07:40)
[2016-05-29] MEDS: FEXOFENADINE HCL 60 MG TAB PO SCH ×2 (07:40→20:34)
[2016-05-29] MEDS: MULTIVITAMIN TAB PO SCH (07:40)
[2016-05-29] MEDS: LACTOBACILLUS ACIDOPHILUS (FLORANEX) TAB PO SCH ×3 (07:40→17:09)
[2016-05-29] MEDS: TRIAMCINOLONE ACET NASAL SPRAY 10.8ML BTL NAE SCH (07:40)
[2016-05-29] MEDS: CARVEDILOL 6.25 MG TAB PO SCH (07:41)
[2016-05-29] MEDS: BOOST VANILLA PO SCH ×6 (07:41→20:34)
[2016-05-29] MEDS: HEPARIN SOD 5000 UNIT/0.5 ML CARP SQ SCH ×2 (07:42→20:36)
[2016-05-29 07:46] VITALS: BP 145/84; PULSE 81; TEMP 37; O2SAT 92
[2016-05-29] MEDS ORDERED: SODIUM CHLORIDE 0.9% 1000ML 1,000 ML IV SCH (09:45)
[2016-05-29] MEDS ORDERED: OPTIRAY 320 IV PRN (13:00)
--- NOTE | 2016-05-29 13:53 | DIAGNOSTIC IMAGING REPORT ---
CT SCAN OF LUMBAR SPINE WITHOUT IV CONTRAST CLINICAL HISTORY: Chronic low back pain. COMPARISON STUDY: No priors. TECHNIQUE: Following the IV administration of 119 cc of Optiray 320, CT scan of the lumbar spine was performed from the lower thoracic spine to the sacrum. Images reviewed in the axial, sagittal, and coronal planes. IV contrast was administered without complication. The examination is significantly degraded by spinal scoliosis. FINDINGS: Lumbar spine: The skeletal structures are osteopenic. Vertebral body height is maintained throughout the lumbar spine. There is minimal anterolisthesis at L1-L2 and L2-L3. Alignment is otherwise preserved. There is straightening of the lumbar lordosis with reversal centered at L2-L3. There is moderate dextrocurvature centered at L2-L3. Near complete bony fusion is seen from L1 through L3 and at L4-L5. The transverse and spinous processes appear intact. There is no evidence of spondylolysis. Advanced facet arthropathy is seen throughout the lumbar spine. No lytic or blastic lesions are seen. Intervertebral discs: There is advanced degenerative disc space narrowing with partial bony fusion seen at L1-L2, L2-L3, and L4-L5. Advanced degenerative narrowing with vacuum phenomenon is seen at the remaining disc levels. T12-L1: There is a disc bulge eccentric to the right. This causes right-sided subarticular stenosis and may impinge on the exiting right T12 nerve root. The central canal is grossly clear. L1-L2: There is a small posterior disc osteophyte complex. There is no evidence of central canal stenosis. L2-L3: There is a small posterior disc osteophyte complex. There is likely mild bilateral subarticular stenosis. No significant central canal stenosis is identified. The neural foramina appear clear. L3-L4: There is a small posterior disc osteophyte complex. No high-grade central canal stenosis is seen. Facet arthropathy causes mild to moderate left neural foraminal stenosis. The right neural foramen appears patent. L4-L5: There is a small posterior disc osteophyte complex. There is no evidence of significant central canal stenosis. Facet arthropathy causes moderate bilateral neural foraminal narrowing. L5-S1: There is a small posterior disc osteophyte complex. No high-grade central canal stenosis is seen. Facet arthropathy causes mild bilateral neural foraminal stenosis, right greater than left. Sacrum: Visualized sacrum and bony pelvis appear intact. Sclerotic changes noted in the sacroiliac joints. Soft tissues: There is near complete fatty atrophy of the paraspinous musculature. A trace left pleural effusion is identified. The heart appears enlarged. A tiny hiatal hernia is noted. There is advanced atherosclerotic calcification and tortuosity of the abdominal aorta. There is mild ectasia of the right common iliac artery which measures up to 1.8 cm. The kidneys demonstrate cortical atrophy. There is a multiloculated cystic lesion in the head of the pancreas which measures approximately 2 x 2 cm. There is no upstream dilatation of the pancreatic duct. IMPRESSION: 1. There is no evidence of fracture or malalignment involving the lumbosacral spine. 2. Lumbosacral spondylosis and scoliosis as detailed above. There is partial bony fusion at several levels. See discussion. 3. There are several small posterior disc osteophyte complexes. No high-grade stenosis of the central canal is identified by CT. See discussion for detailed level by level analysis. 4. There is an approximately 2 x 2 cm multiloculated cystic lesion in the head of the pancreas. Top differential considerations include a serous cystadenoma, a mucinous cystic neoplasm, or possibly a complex IPMN. The appearance is not typical for pancreatic adenocarcinoma. If definitive evaluation is desired then endoscopic ultrasound would be appropriate. 5. Trace left pleural effusion. Dictated: 05/29/2016 1:06 PM Transcribed: 05/29/2016 1:52 PM NINA_Elham Electronically signed by: Ildefonso Lorenz M.D. 05/29/2016 2:32 PM
[2016-05-29 14:38] VITALS: BP 142/84; PULSE 93; TEMP 37.9; O2SAT 96
[2016-05-29 15:14] VITALS: TEMP 37.1
[2016-05-29] MEDS ORDERED: LACTOBACILLUS ACIDOPHILUS (FLORANEX) TAB PO SCH (17:00)
[2016-05-29] MEDS: CEFUROXIME AXETIL 500 MG TAB PO SCH ×2 (17:09→20:33)
[2016-05-29 18:54] LABS: URINE APPEARANCE CLEAR (CLEAR); URINE BILIRUBIN NEG (NEG); URINE COLOR YELLOW; URINE NITRITE NEG (NEG); URINE PH 7.5 (4.5-7.5); URINE SPECIFIC GRAVITY 1.038 (1.000-1.030); UROBILINOGEN NEG (NEG)
[2016-05-29 18:55] LABS: MANUAL MICROSCOPIC REQUIRED? NO; REVIEW REQ? NO
--- NOTE | 2016-05-29 19:00 | Progress Note ---
Subjective Date of Service: May 29, 2016. Subjective Pt evaluation today including: conversation w/ patient, physical exam, chart review, lab review, review of studies (CT lumbar spine), review of inpatient medication list Pain: denies any new pains today PO Intake: improving Voiding: incontinence (polyuria, incomplete emptying, but no dysuria ) main complaints today are that of urinary incontinence she reports that this is chronic - she has nocturia (severe), getting up q2h at home also with daytime frequency and incontinence denies any change in lumbar back pain denies any change in sinus symptoms Problem List Medical Problems: (1) Ambulatory dysfunction Status: Acute (2) Frontal sinusitis Status: Acute (3) Maxillary sinusitis Status: Acute (4) Vertigo Status: Acute Review of Systems Constitutional: No chills, No fever Respiratory: No cough, No dyspnea on exertion, No shortness of breath, No sputum, No wheezing Cardiac: No chest pain Abdomen: + diarrhea (small amounts), No pain Female : + incontinence, + urinary frequency Objective Vital Signs Date Time Temp Pulse Resp B/P Pulse Ox O2 Delivery O2 Flow Rate FiO2 05/29/16 15:19 Room Air 05/29/16 15:14 37.1 05/29/16 14:38 37.9 93 20 142/84 96 05/29/16 09:05 Room Air 05/29/16 07:46 37.0 81 20 145/84 92 05/29/16 00:00 Room Air 05/28/16 23:59 36.7 77 18 147/77 92 Room Air 05/28/16 20:00 Room Air Physical Exam General Appearance: no apparent distress ENT: pharynx normal, + nasal drainage Neck: no JVD Respiratory/Chest: lungs clear, no respiratory distress, no accessory muscle use Cardiovascular: regular rate, rhythm, no gallop, no murmur Abdomen: normal bowel sounds, non tender, soft, no organomegaly Extremities: no pedal edema Neurologic/Psychiatric: alert, oriented x 3 Laboratory Results Last 24 Hours Test 05/29/16 18:20 Assessment and Plan 85yo female with - 1. generalized weakness - +/- improved. sed rate, crp, b12, vitamin D - normal CT lumbar spine (she refused MRI l-spine) without significant spinal stenosis low grade fever today - due to sinus infection? brewing UTI? 2. dehydration - resolved 3. acute sinusitis? with low-grade fever today placed back on abx received 2 days of rocephin; will start ceftin 500 BID 4. previous h/o lumbar back pain - see above re: CT lumbar spine 5. hypoglycemia - resolved 6. mild protein/calorie malnutrition - slowly improving 7. HTN - controlled with home meds 8. hypothyroidism - cont synthroid; check TSH in am to ensure euthyroid state 9. 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 DVT proph - heparin PT, OT both recommending rehab SW for dispo planning Continued [facility] stay due to: ambulation difficulties, multiple IV medications needed Discharge planning: intermediate facility
[2016-05-29] MEDS: ASPIRIN 81 MG ECTAB PO SCH (20:33)
[2016-05-29] MEDS: CARVEDILOL 3.125 MG TAB PO SCH (20:34)
[2016-05-29] MEDS: SIMVASTATIN 20 MG TAB PO SCH (20:35)
[2016-05-29 23:10] VITALS: BP 139/71; PULSE 70; TEMP 37.2; O2SAT 95
[2016-05-30] MEDS: LEVOTHYROXINE 75 MCG TAB PO SCH (06:27)
[2016-05-30 06:51] LABS: BUN/CREATININE RATIO 16.2 (10-20); CALCIUM 7.7 mg/dl (8.5-10.1); CREATININE 0.67 mg/dl (0.60-1.20)
[2016-05-30 07:01] LABS: THYROID STIMULATING HORMONE 1.4 uIu/ml (0.300-4.500)
[2016-05-30 07:32] VITALS: BP 124/65; PULSE 86; TEMP 36.7; O2SAT 92
[2016-05-30] MEDS: HEPARIN SOD 5000 UNIT/0.5 ML CARP SQ SCH ×2 (09:11→21:00)
[2016-05-30] MEDS: CARVEDILOL 6.25 MG TAB PO SCH (09:14)
[2016-05-30] MEDS: MAGNESIUM OXIDE 400 MG TAB PO SCH (09:14)
[2016-05-30] MEDS: FEXOFENADINE HCL 60 MG TAB PO SCH ×2 (09:14→21:05)
[2016-05-30] MEDS: LACTOBACILLUS ACIDOPHILUS (FLORANEX) TAB PO SCH ×3 (09:14→16:52)
[2016-05-30] MEDS: MULTIVITAMIN TAB PO SCH (09:15)
[2016-05-30] MEDS: TRIAMCINOLONE ACET NASAL SPRAY 10.8ML BTL NAE SCH (09:15)
[2016-05-30] MEDS: BOOST VANILLA PO SCH ×6 (09:15→21:05)
[2016-05-30] MEDS: CEFUROXIME AXETIL 500 MG TAB PO SCH ×2 (09:15→21:04)
[2016-05-30 15:47] VITALS: BP 112/64; PULSE 81; TEMP 36.9; O2SAT 94
[2016-05-30 16:30] VITALS: O2SAT 94
[2016-05-30] MEDS: ASPIRIN 81 MG ECTAB PO SCH (21:04)
[2016-05-30] MEDS: SIMVASTATIN 20 MG TAB PO SCH (21:04)
[2016-05-30] MEDS: CARVEDILOL 3.125 MG TAB PO SCH (21:14)
[2016-05-31 00:35] VITALS: BP 115/68; PULSE 90; TEMP 37.1; O2SAT 93
--- NOTE | 2016-05-31 00:55 | Progress Note ---
Subjective Date of Service: late entry for visit on May 30, 2016. Subjective Pt evaluation today including: conversation w/ patient, conversation w/ family (son, daughter in law), physical exam, chart review, lab review, review of inpatient medication list Pain: none today PO Intake: improved Voiding: incontinence (frequency, nocturia) no issues overnight initially was NOT willing to go to rehab, but after going through PT session, she realizes the importance of attending rehab son/daughter in law supportive of rehab appetite improved feeling better overall Problem List Medical Problems: (1) Ambulatory dysfunction Status: Acute (2) Frontal sinusitis Status: Acute (3) Maxillary sinusitis Status: Acute (4) Vertigo Status: Acute Review of Systems Constitutional: + weakness, No chills, No fever Respiratory: No cough, No dyspnea on exertion, No shortness of breath Cardiac: No chest pain Abdomen: No pain Objective Vital Signs Date Time Temp Pulse Resp B/P Pulse Ox O2 Delivery O2 Flow Rate FiO2 05/31/16 00:35 37.1 90 20 115/68 93 Room Air 05/30/16 20:00 Room Air 05/30/16 16:30 94 Room Air 05/30/16 15:47 36.9 81 14 112/64 94 05/30/16 09:00 Room Air 05/30/16 07:32 36.7 86 15 124/65 92 Room Air Physical Exam General Appearance: no apparent distress ENT: pharynx normal Neck: no JVD Respiratory/Chest: lungs clear, no respiratory distress, no accessory muscle use Cardiovascular: regular rate, rhythm, no gallop Abdomen: normal bowel sounds, non tender, soft, no organomegaly Extremities: no pedal edema Comments: kyphotic back Laboratory Results Last 24 Hours Test 05/30/16 05:16 Sodium Level 137 mmol/L Potassium Level 4.0 mmol/L Chloride Level 104 mmol/L Carbon Dioxide Level 25 mmol/L Anion Gap 8.0 mmol/L Blood Urea Nitrogen 11 mg/dl Creatinine 0.67 mg/dl Est Creatinine Clear Calc Drug Dose 59.6 ml/min Estimated GFR () 94.2 Estimated GFR (Non- 81.3 BUN/Creatinine Ratio 16.2 Random Glucose 89 mg/dl Calcium Level 7.7 mg/dl Thyroid Stimulating Hormone (TSH) 1.400 uIu/ml Assessment and Plan 85yo female with - 1. generalized weakness - improved with rehydration & Rx of sinus infection. sed rate, crp, b12, vitamin D - normal CT lumbar spine (she refused MRI l-spine) without significant spinal stenosis 2. dehydration - resolved 3. acute sinusitis - resolving. day #4 / 10 of abx; cont ceftin 4. previous h/o lumbar back pain - see above re: CT lumbar spine 5. hypoglycemia - resolved 6. deconditioning - PT, OT; rehab after d/c 7. HTN - controlled with home meds 8. hypothyroidism - cont synthroid; TSH nl 9. 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
[2016-05-31] MEDS: LEVOTHYROXINE 75 MCG TAB PO SCH (06:13)
[2016-05-31 08:10] VITALS: BP 159/131; PULSE 80; TEMP 36.6; O2SAT 92
[2016-05-31] MEDS: MULTIVITAMIN TAB PO SCH (08:57)
[2016-05-31] MEDS: MAGNESIUM OXIDE 400 MG TAB PO SCH (08:57)
[2016-05-31] MEDS: BOOST VANILLA PO SCH ×6 (08:58→19:55)
[2016-05-31] MEDS: CEFUROXIME AXETIL 500 MG TAB PO SCH ×2 (08:58→20:00)
[2016-05-31] MEDS: CARVEDILOL 6.25 MG TAB PO SCH (08:58)
[2016-05-31] MEDS: FEXOFENADINE HCL 60 MG TAB PO SCH ×2 (08:58→19:59)
[2016-05-31] MEDS: TRIAMCINOLONE ACET NASAL SPRAY 10.8ML BTL NAE SCH (08:59)
[2016-05-31] MEDS: HEPARIN SOD 5000 UNIT/0.5 ML CARP SQ SCH ×2 (09:02→19:59)
[2016-05-31] MEDS: LACTOBACILLUS ACIDOPHILUS (FLORANEX) TAB PO SCH ×3 (09:03→16:16)
[2016-05-31 09:05] VITALS: BP 145/75; PULSE 55
[2016-05-31 15:14] VITALS: BP 163/77; PULSE 79; TEMP 36.6; O2SAT 94
--- NOTE | 2016-05-31 15:39 | Progress Note ---
Progress Note We were consulted to discuss ongoing care and options with Ms. Chan due to an incidental finding of a pancreatic mass on CT imaging of the back. Options for evaluation were discussed with Ms. Chan. She states that she would not like to proceed with EGD/EUS at this time, but would like to discuss more with her family. We discussed that the image we got on the CT is not a good picture of the lesion and that a diagnosis cannot be achieved from this image alone. Patient is agreeable to proceed conservatively at this time, and she will be in contact with our office if she decides to proceed with any additional imaging. Please call with any questions. (Juana Payan ., ISABEL) Attg addendum: I reviewed chart and imaging studies. I reviewed films with radiologist. 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 I discussed differential dx, natural h/o pancreatic cystic neoplasms including possible malignant potential, possibliity of pancreatic surgery if cysts are found to be high risk for malignancy by further testing. Pt states that she would not want surgery if cysts found to be malignant, and does not want to pursue further testing at this time. Please call with questions. (Hiro Kelly M.D.)
[2016-05-31 19:56] VITALS: BP 156/73; PULSE 74
[2016-05-31] MEDS: CARVEDILOL 3.125 MG TAB PO SCH (20:00)
[2016-05-31] MEDS: SIMVASTATIN 20 MG TAB PO SCH (20:01)
[2016-05-31] MEDS: ASPIRIN 81 MG ECTAB PO SCH (20:01)
--- NOTE | 2016-06-01 00:02 | Progress Note ---
Subjective Date of Service: May 31, 2016. Subjective Pt evaluation today including: conversation w/ patient, physical exam, chart review, lab review, conversation w/ recruiting consultant (Gastroenterology - regarding ? need for EUS?) Pain: denies PO Intake: fair Voiding: incontinence (frequency ) patient was counseled about incidental finding of possible pancreatic head cyst she really does not want to undergo additional testing but is willing to speak to GI about it sinus symptoms persist no other new complaints Problem List Medical Problems: (1) Ambulatory dysfunction Status: Acute (2) Frontal sinusitis Status: Acute (3) Maxillary sinusitis Status: Acute (4) Vertigo Status: Acute Review of Systems Constitutional: No fever Respiratory: No cough, No dyspnea on exertion, No shortness of breath Cardiac: No chest pain Abdomen: No diarrhea, No pain Objective Vital Signs Date Time Temp Pulse Resp B/P Pulse Ox O2 Delivery O2 Flow Rate FiO2 05/31/16 19:56 74 156/73 05/31/16 16:00 Room Air 05/31/16 15:14 36.6 79 15 163/77 94 Room Air 05/31/16 09:05 55 145/75 05/31/16 08:45 Room Air 05/31/16 08:10 36.6 80 14 159/131 92 Room Air 05/31/16 00:35 37.1 90 20 115/68 93 Room Air 05/31/16 00:00 Nasal Cannula 2.0 Physical Exam General Appearance: no apparent distress ENT: pharynx normal Neck: no JVD Respiratory/Chest: lungs clear, normal breath sounds, no respiratory distress, no accessory muscle use Cardiovascular: regular rate, rhythm, no gallop, no murmur Abdomen: normal bowel sounds, non tender, soft, no organomegaly Extremities: no pedal edema Neurologic/Psychiatric: alert, oriented x 3 Assessment and Plan 85yo female with - 1. generalized weakness - improving with PT, OT and Rx of sinus infection. 2. ?pancreatic head mass/cyst? [facility] consult for consideration of outpatient EUS 3. acute sinusitis - resolving. day #5 / 10 of abx; cont ceftin 4. previous h/o lumbar back pain - pain controlled at this time 5. deconditioning - PT, OT; rehab after d/c 6. HTN - controlled with home meds; resume ADITYA inhibitor 7. hypothyroidism - cont synthroid; TSH nl 8. urinary frequency & incontinence - No UTI urology consult as outpatient for urodynamic testing 9. DVT proph - heparin 10. recent diarrhea - has not recurred awaiting SNF auth for disposition PT, OT both recommending rehab patient willing to go to rehab at SNF son/daughter in law updated today at bedside Continued [facility] stay due to: ambulation difficulties Discharge planning: care home facility
[2016-06-01 00:41] VITALS: BP 146/77; PULSE 74; TEMP 36.7; O2SAT 90
[2016-06-01 06:06] LABS: HEMATOCRIT 36.3 % (37-47); MEAN CELL VOLUME 96.8 fL (80-100); MEAN CORPUSCULAR HEMOGLOBIN 33.9 pg (25-34); MEAN PLATELET VOLUME 10.8 fL (7.4-10.4); PLATELET COUNT 251 K/uL (130-400); RED BLOOD COUNT 3.75 M/uL (4.2-5.4); WHITE BLOOD COUNT 5.18 K/uL (4.8-10.8)
[2016-06-01] MEDS: LEVOTHYROXINE 75 MCG TAB PO SCH (06:15)
[2016-06-01 06:43] LABS: BUN/CREATININE RATIO 18.1 (10-20); CALCIUM 8.8 mg/dl (8.5-10.1); CREATININE 0.71 mg/dl (0.60-1.20); POTASSIUM 4.5 mmol/L (3.5-5.1)
[2016-06-01 08:00] VITALS: BP 162/73; PULSE 80
[2016-06-01] MEDS ORDERED: LISINOPRIL 10 MG TAB PO SCH (08:00)
[2016-06-01] MEDS: MULTIVITAMIN TAB PO SCH (08:01)
[2016-06-01] MEDS: CEFUROXIME AXETIL 500 MG TAB PO SCH ×2 (08:01→22:10)
[2016-06-01] MEDS: CARVEDILOL 6.25 MG TAB PO SCH (08:01)
[2016-06-01] MEDS: TRIAMCINOLONE ACET NASAL SPRAY 10.8ML BTL NAE SCH (08:01)
[2016-06-01] MEDS: MAGNESIUM OXIDE 400 MG TAB PO SCH (08:01)
[2016-06-01] MEDS: FEXOFENADINE HCL 60 MG TAB PO SCH ×2 (08:01→22:11)
[2016-06-01] MEDS: BOOST VANILLA PO SCH ×6 (08:02→22:12)
[2016-06-01] MEDS: LACTOBACILLUS ACIDOPHILUS (FLORANEX) TAB PO SCH ×3 (08:02→17:30)
[2016-06-01] MEDS: HEPARIN SOD 5000 UNIT/0.5 ML CARP SQ SCH ×2 (08:04→21:00)
[2016-06-01 08:28] VITALS: BP 183/82; PULSE 87; TEMP 36.4; O2SAT 94
[2016-06-01 08:40] VITALS: BP 165/85
[2016-06-01 16:26] VITALS: BP 140/70; PULSE 75; TEMP 36.7; O2SAT 94
[2016-06-01 16:51] VITALS: O2SAT 94
[2016-06-01] MEDS: SIMVASTATIN 20 MG TAB PO SCH (22:10)
[2016-06-01] MEDS: CARVEDILOL 3.125 MG TAB PO SCH (22:11)
[2016-06-01] MEDS: ASPIRIN 81 MG ECTAB PO SCH (22:11)
--- NOTE | 2016-06-01 23:03 | Progress Note ---
Subjective Date of Service: Jun 01, 2016. Subjective Pt evaluation today including: conversation w/ patient, physical exam, chart review, lab review Pain: denies PO Intake: fair, gets filled up easily Voiding: incontinence no issues overnight she has numerous questions today about her antibiotics, probiotics, sinus infection, other medications she overall feels better (energy, etc) she does NOT want to undergo additional testing for the ?pancreatic head lesion Problem List Medical Problems: (1) Ambulatory dysfunction Status: Acute (2) Frontal sinusitis Status: Acute (3) Maxillary sinusitis Status: Acute (4) Vertigo Status: Acute Review of Systems Constitutional: No fever ENT: + hearing loss (months) Respiratory: + cough, No shortness of breath Cardiac: No chest pain, No orthopnea Abdomen: No pain Objective Vital Signs Date Time Temp Pulse Resp B/P Pulse Ox O2 Delivery O2 Flow Rate FiO2 06/01/16 16:51 94 Room Air 06/01/16 16:26 36.7 75 18 140/70 94 Room Air 06/01/16 08:40 165/85 06/01/16 08:28 36.4 87 18 183/82 94 Room Air 06/01/16 08:10 Room Air 06/01/16 08:00 80 162/73 06/01/16 00:41 36.7 74 18 146/77 90 Room Air 06/01/16 00:00 Room Air Physical Exam General Appearance: no apparent distress, + pertinent finding (looks better relative to previous exams) ENT: TMs normal, pharynx normal Neck: no JVD Respiratory/Chest: lungs clear, no respiratory distress, no accessory muscle use Cardiovascular: regular rate, rhythm, no gallop, no murmur Abdomen: normal bowel sounds, non tender, soft, no organomegaly Extremities: no pedal edema Neurologic/Psychiatric: alert, oriented x 3 Laboratory Results Last 24 Hours Test 06/01/16 05:36 White Blood Count 5.18 K/uL Red Blood Count 3.75 M/uL Hemoglobin 12.7 g/dL Hematocrit 36.3 % Mean Corpuscular Volume 96.8 fL Mean Corpuscular Hemoglobin 33.9 pg Mean Corpuscular Hemoglobin Concent 35.0 g/dl RDW Standard Deviation 47.2 fL RDW Coefficient of Variation 13.3 % Platelet Count 251 K/uL Mean Platelet Volume 10.8 fL Sodium Level 139 mmol/L Potassium Level 4.5 mmol/L Chloride Level 104 mmol/L Carbon Dioxide Level 27 mmol/L Anion Gap 8.0 mmol/L Blood Urea Nitrogen 13 mg/dl Creatinine 0.71 mg/dl Est Creatinine Clear Calc Drug Dose 56.2 ml/min Estimated GFR () 91.3 Estimated GFR (Non- 78.8 BUN/Creatinine Ratio 18.1 Random Glucose 85 mg/dl Calcium Level 8.8 mg/dl Assessment and Plan 85yo female with - 1. generalized weakness - resolving; to SNF for rehab. 2. ?pancreatic head mass/cyst? [facility] consulted for consideration of outpatient EUS but patient declining such at this time. 3. acute sinusitis - resolving. day #6 / 10 of abx; cont ceftin 4. 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 Canals and TMs on otoscopic exam today normal. 5. deconditioning - PT, OT; rehab after d/c 6. HTN - controlled with home meds; resumed ADITYA inhibitor today 7. hypothyroidism - cont synthroid; TSH nl 8. urinary frequency & incontinence - No UTI urology consult as outpatient for urodynamic testing 9. DVT proph - heparin 10. recent diarrhea - resolved hopefully to [facility] tomorrow for rehab Continued [facility] stay due to: ambulation difficulties Discharge planning: intermediate facility
[2016-06-02 00:18] VITALS: BP 156/97; PULSE 74; TEMP 36.5; O2SAT 96
[2016-06-02] MEDS: LEVOTHYROXINE 75 MCG TAB PO SCH (06:08)
[2016-06-02 08:27] VITALS: BP 170/85; PULSE 74; TEMP 36.3; O2SAT 97
[2016-06-02] MEDS: FEXOFENADINE HCL 60 MG TAB PO SCH ×2 (08:36→20:32)
[2016-06-02] MEDS: CEFUROXIME AXETIL 500 MG TAB PO SCH ×2 (08:36→20:32)
[2016-06-02] MEDS: MULTIVITAMIN TAB PO SCH (08:36)
[2016-06-02] MEDS: CARVEDILOL 6.25 MG TAB PO SCH (08:36)
[2016-06-02] MEDS: LACTOBACILLUS ACIDOPHILUS (FLORANEX) TAB PO SCH ×3 (08:36→17:19)
[2016-06-02] MEDS: TRIAMCINOLONE ACET NASAL SPRAY 10.8ML BTL NAE SCH (08:37)
[2016-06-02] MEDS: BOOST VANILLA PO SCH ×6 (08:37→20:31)
[2016-06-02] MEDS: MAGNESIUM OXIDE 400 MG TAB PO SCH (08:37)
[2016-06-02] MEDS: LISINOPRIL 20 MG TAB PO SCH (08:40)
[2016-06-02] MEDS: HEPARIN SOD 5000 UNIT/0.5 ML CARP SQ SCH ×2 (08:40→20:31)
[2016-06-02 10:17] VITALS: BP 121/73; PULSE 80
[2016-06-02 15:11] VITALS: BP 133/70; PULSE 85; TEMP 36.7; O2SAT 96
[2016-06-02] MEDS ORDERED: ALL60 PO (16:51)
[2016-06-02] MEDS ORDERED: LCTX PO (16:51)
[2016-06-02] MEDS ORDERED: CEFU1TAB35 PO (16:51)
[2016-06-02] MEDS ORDERED: LISI20TA3 PO (16:51)
[2016-06-02] MEDS ORDERED: Enteral Nutrition Formula PO (16:51)
[2016-06-02] MEDS ORDERED: TYL325X PO (16:51)
[2016-06-02] MEDS ORDERED: TRIA1SPR4 NAE (16:51)
[2016-06-02] MEDS ORDERED: SALI0.6510 (16:51)
--- NOTE | 2016-06-02 17:00 | Discharge Instructions ---
Discharge Instructions Admission Reason for Admission: Weakness Discharge Discharge Diagnosis / Problem: Weakness, sinus infection - both improved Discharge Goals Goal(s): Learn about illness, Diagnostic testing, Therapeutic intervention Activity Recommendations Activity Level: Assistance Required Therapies: Physical Therapy, Occupational Therapy . Additional Information Patient informed of condition: Yes Advance Directives: Yes DNR: Yes Level of Care: Skilled Communicable Disease: No Prognosis: Stable Oxygen at (LPM): PRN only Aparicio Catheter: No Instructions / Follow-Up Instructions / Follow-Up 1. recommend referral to [facility] within 2-3 weeks for chronic urinary incontinence 2. recommend visit with center medical director of [facility] within 1-2 days 3. recommend follow-up with Dr. Garcia within 1 week of discharge from [facility] Diet Patient's current hospital diet: Low Fiber Diet Discharge Diet Recommended Diet: Regular Diet Procedures Procedures Performed: CAT scan of the brain - no stroke but sinus infection seen. CAT scan of the lumbar spine - considerable amount of arthritis seen but a condition called spinal stenosis was absent. Pending Studies Studies pending at discharge: no Physician Orders On Transfer Vital Signs: per routine POLST Discussion: Not Applicable Medical Emergencies . Who to Call and When: Medical Emergencies: If at any time you feel your situation is an emergency, please call 911 immediately. . Non-Emergent Contact Non-Emergency issues call your: Primary Care Provider Call Non-Emergent contact if: temperature is above 100.5, your pain is unusual for you, your pain is concerning you, you have any medication questions . . "Provider Documentation" section prepared by García Garcia. Core Measure Problem Core Measures: None
--- NOTE | 2016-06-02 20:25 | Progress Note ---
Subjective Date of Service: Jun 02, 2016. Subjective Pt evaluation today including: conversation w/ patient, conversation w/ family (son by phone), physical exam, chart review, conversation w/ protection consultant (social work, insurance company as well ), review of inpatient medication list Pain: denies PO Intake: improved Voiding: incontinence no issues overnight anxious to get to rehab Problem List Medical Problems: (1) Ambulatory dysfunction Status: Acute (2) Frontal sinusitis Status: Acute (3) Maxillary sinusitis Status: Acute (4) Vertigo Status: Acute Review of Systems ENT: + nasal symptoms Respiratory: No cough, No dyspnea on exertion, No shortness of breath Cardiac: No chest pain, No orthopnea Abdomen: No diarrhea, No nausea, No pain Objective Vital Signs Date Time Temp Pulse Resp B/P Pulse Ox O2 Delivery O2 Flow Rate FiO2 06/02/16 16:33 Room Air 06/02/16 15:11 36.7 85 16 133/70 96 Room Air 06/02/16 10:17 80 121/73 06/02/16 08:30 Room Air 06/02/16 08:27 36.3 74 16 170/85 97 Room Air 06/02/16 00:18 36.5 74 18 156/97 96 Room Air 06/02/16 00:00 Room Air Physical Exam General Appearance: no apparent distress ENT: pharynx normal Neck: no JVD Respiratory/Chest: lungs clear, no respiratory distress, no accessory muscle use Cardiovascular: regular rate, rhythm, no gallop, no murmur Abdomen: normal bowel sounds, non tender, soft, no organomegaly Extremities: no pedal edema Neurologic/Psychiatric: alert, oriented x 3 Assessment and Plan 85yo female with - 1. generalized weakness, 2nd to #3 - improved/resolving. 2. ?pancreatic head mass/cyst? [facility] consulted for consideration of outpatient EUS but patient declining such at this time. Pt knows if she changes her mind she can pursue additional w/u. 3. acute sinusitis - resolving. day #7 / 10 of abx; cont ceftin 4. 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 Canals and TMs on otoscopic exam today normal. Needs audiology eval for hearing aids as outpatient. 5. HTN - uncontrolled with home meds; increase lisinopril to 20mg daily. 6. hypothyroidism - cont synthroid; TSH nl 7. urinary frequency & incontinence - chronic. No UTI on urine cx urology consult as outpatient for urodynamic testing 8. DVT proph - heparin repeat bmp/mag in am for stability after doing peer to peer with her insurance co they have approved SNF for rehab transfer to [facility] [place] son aware of discharge plan updated son 06/02/16 Continued [facility] stay due to: ambulation difficulties Discharge planning: assisted facility
[2016-06-02] MEDS: CARVEDILOL 3.125 MG TAB PO SCH (20:32)
[2016-06-02] MEDS: ASPIRIN 81 MG ECTAB PO SCH (20:33)
[2016-06-02] MEDS: SIMVASTATIN 20 MG TAB PO SCH (20:35)
[2016-06-02 23:20] VITALS: BP 119/72; PULSE 75; TEMP 36.6; O2SAT 97
[2016-06-03] VITALS: O2SAT 97
[2016-06-03] MEDS: LEVOTHYROXINE 75 MCG TAB PO SCH (05:45)
[2016-06-03 06:23] LABS: BUN/CREATININE RATIO 29.6 (10-20); CALCIUM 8.7 mg/dl (8.5-10.1); CREATININE 0.7 mg/dl (0.60-1.20); POTASSIUM 4.7 mmol/L (3.5-5.1)
[2016-06-03 07:44] VITALS: BP 159/77; PULSE 77; TEMP 36.4; O2SAT 95
[2016-06-03] MEDS: HEPARIN SOD 5000 UNIT/0.5 ML CARP SQ SCH (08:22)
[2016-06-03] MEDS: TRIAMCINOLONE ACET NASAL SPRAY 10.8ML BTL NAE SCH (08:25)
[2016-06-03] MEDS: MULTIVITAMIN TAB PO SCH (08:26)
[2016-06-03] MEDS: LISINOPRIL 20 MG TAB PO SCH (08:26)
[2016-06-03] MEDS: FEXOFENADINE HCL 60 MG TAB PO SCH (08:26)
[2016-06-03] MEDS: MAGNESIUM OXIDE 400 MG TAB PO SCH (08:26)
[2016-06-03] MEDS: LACTOBACILLUS ACIDOPHILUS (FLORANEX) TAB PO SCH ×2 (08:26→12:55)
[2016-06-03] MEDS: CEFUROXIME AXETIL 500 MG TAB PO SCH (08:26)
--- NOTE | 2016-06-03 08:33 | Progress Note ---
Progress Note 06/03/16 0830 S: no events overnight c/o cough but denies h/a, sob, abd pain eating ok O: VSS, no fever gen - nad face - no tenderness to palpation over sinuses mouth - MMM, no thrush nose - clear heart - RRR, s1, s2 lungs - CTA b/l abd - soft, NT ext - warm, pulses 2+ b/l BMP, mag nl A/P: 1. sinusitis - resolving. day #7 of abx. finish 10 days in total. 2. cough due to #1 - add mucinex cont kathleen, nasal steroid, saline 3. weakness - to [facility] hopefully today for rehab Adrian TAYLOR MD
[2016-06-03] MEDS ORDERED: GUAIFENESIN 600 MG TABCR PO SCH (09:00)
[2016-06-03] MEDS: BOOST VANILLA PO SCH ×4 (10:23→12:55)
[2016-06-03] MEDS: CARVEDILOL 6.25 MG TAB PO SCH (10:24)
[2016-06-03 15:02] VITALS: BP 111/69; PULSE 77; TEMP 36.6; O2SAT 93
--- NOTE | 2016-06-03 16:00 | Discharge Summary ---
Discharge Summary Admission Date: May 27, 2016 at 13:58 Discharge Date: Jun 03, 2016 Discharge Disposition: correction facility ([facility]) Principal Diagnosis: weakness due to acute sinusitis - improved Problems/Secondary Diagnoses: 1. acute kidney injury 2nd to dehydration - resolved. 2. HTN 3. hypoglycemia 2nd to poor oral intake - resolved. 4. mild protein calorie malnutrition - resolved. 5. lumbar spine DJD 6. chronic urinary incontinence 7. hypothyroidism 8. incidental finding of pancreatic head cyst as seen on lumbar spine imaging - patient declined additional work-up. 9. hyperlipidemia Immunizations: Have You Had Influenza Vaccine: Yes History of Tetanus Vaccine?: Yes Tetanus Immunization Date: Feb 19, 2005 History of Pneumococcal: Yes Pneumococcal Date: Jul 22, 2003 History of Hepatitis B Vaccine: No Procedures: 1. CT head - FINDINGS: Brain parenchyma: There are age-related involutional changes noting mild subcortical and periventricular microangiopathic change. There is no hemorrhage, mass effect, or evidence of acute territorial ischemia by CT criteria. Minor-white matter is preserved. No extra-axial fluid collection is seen. Ventricles, sulci, cisterns: Prominent secondary to involutional change. Intracranial vasculature: There is atherosclerotic calcification of the cavernous carotid and vertebral arteries. Calvarium: Unremarkable. Sinuses and mastoids: There is near complete opacification of the right maxillary antrum which contains hyperdense secretions. Trace mucosal thickening is present in the left maxillary antrum. There is mild mucosal thickening within the ethmoid and sphenoid sinuses. The right frontal sinus appears opacified. The mastoid air cells are well pneumatized. Orbits: The bony orbits are grossly intact. There is a left-sided ocular lens implant. 2. CT lumbar spine - IMPRESSION: 1. There is no evidence of fracture or malalignment involving the lumbosacral spine. 2. Lumbosacral spondylosis and scoliosis as detailed above. There is partial bony fusion at several levels. See discussion. 3. There are several small posterior disc osteophyte complexes. No high-grade stenosis of the central canal is identified by CT. See discussion for detailed level by level analysis. 4. There is an approximately 2 x 2 cm multiloculated cystic lesion in the head of the pancreas. Top differential considerations include a serous cystadenoma, a mucinous cystic neoplasm, or possibly a complex IPMN. The appearance is not typical for pancreatic adenocarcinoma. If definitive evaluation is desired then endoscopic ultrasound would be appropriate. 5. Trace left pleural effusion. Consultations: gastroenterology PT, OT Medication Reconciliation New Medications: Acetaminophen (Tylenol) 325 Mg Tab 650 MG PO Q4H PRN for Pain or Fever, #30 TAB 0 Refills Cefuroxime Axetil (Cefuroxime Axetil) 500 Mg Tab 500 MG PO BID for 4 Days, #8 TAB 0 Refills Fexofenadine HCl (Fexofenadine HCl) 60 Mg Tab 60 MG PO BID, #30 TAB 0 Refills Lactobacillus Acidophilus (Floranex) 1 Tab Tab 4 TAB PO TIDM for 5 Days, TAB 0 Refills Saline (Paia Nasal [place]) 0.65 % Spr 2 SPRAYS NA Q1H PRN for nasal congestion, #1 0 Refills Triamcinolone Acetonide (Nasal (Nasacort Allergy 24Hr) 55 Mcg/Act Spr 2 SPRAYS EDDA DAILY, #1 0 Refills [Enteral Nutrition Formula] () 1 CAN LIQD 1 CAN PO TID, #30 0 Refills Changed Medications: Lisinopril (Prinivil) 20 Mg Tab 1 TAB PO DAILY for 30 Days, #30 TAB 5 Refills (Changed from: Lisinopril (Zestril ) 30 Mg Tab 30 Mg PO QAM) Continued Medications: Aspirin (Aspirin Ec) 81 Mg Tab 81 MG PO QPM Carvedilol (Coreg) 6.25 Mg Tab 6.25 MG PO QAM, TAB Carvedilol (Coreg) 3.125 Mg Tab 3.125 MG PO QPM, TAB takes one 6.25mg tablet in the morning and half a tablet (3.125mg) in the evening Levothyroxine Sodium (Synthroid) 75 Mcg Tab 75 MCG PO QAM, TAB Magnesium Oxide (Mag-Ox) 400 Mg Tab 400 MG PO QAM, TAB Multivitamin (Multivitamin) Tab 1 TAB PO DAILY Oxygen (Oxygen) Gas 2 LITERS NA PRN Simvastatin (Zocor) 20 Mg Tab 20 MG PO QPM Discharge Exam Physical Exam: General Appearance: WD/WN, no apparent distress ENT: pharynx normal, + nasal congestion Neck: no JVD Respiratory/Chest: lungs clear, no respiratory distress, no accessory muscle use, + pertinent finding (kyphosis of back) Cardiovascular: regular rate, rhythm, no gallop, no murmur, normal peripheral pulses Abdomen / GI: normal bowel sounds, non tender, soft, no organomegaly Extremities: no pedal edema Neurologic/Psychiatric: alert, oriented x 3 Hospital Course HISTORY OF PRESENT ILLNESS: The patient is an 85-year-old female who presented to the emergency department with complaint of worsening weakness over the past week to the point that she was not able to get up off the commode on the day of admission. Her son with whom she lives reported that she was struggling more to walk and had more imbalance and near falls. She reported some shortness of breath with exertion and occasional cough but denied any chest pain. HOSPITAL COURSE: The patient's presenting symptoms were thought to be due to acute sinusitis as seen on imaging of the brain. She was started on antibiotics and other medications for symptomatic relief. In addition, she had evidence of acute kidney injury from dehydration and received IVF for such. Her creatinine quickly normalized with IVF. She had no evidence of pneumonia on chest x-ray and urinalysis on two occasions was not suggestive of UTI. Other labs including sed rate, TSH, vitamin D, vitamin B12, and crp were largely normal. Ms. Chan reported chronic lumbar back pain and in light of her lower extremity weakness a CT of the lumbar spine was obtained to exclude spinal stenosis as the cause of her leg symptoms. Although there was considerable DJD of the lumbar spine there was no significant central canal spinal stenosis. Incidentally a pancreatic head cyst was seen on the CT of the lumbar spine. [facility] was consulted but at the time of that consult the patient declined any additional work-up for the lesion. Over her hospital course her fatigue, anorexia, and lower extremity weakness all improved. PT/OT worked with the patient both of whom recommended rehab. She will transfer to [facility] for that reason. At discharge the following were recommended - 1. Four additional days of antibiotics for her sinusitis (ceftin). 2. Referral to urology (nonurgent) for chronic urinary incontinence. 3. Referral to audiology (nonurgent) due to progressive hearing loss. The patient was counseled that if she changes her mind regarding the possible pancreatic lesion she can undergo additional work-up in the future. Total Time Spent: Greater than 30 minutes This includes examination of the patient, discharge planning, medication reconciliation, and communication with other providers. Discharge Instructions Please refer to the electronic Patient Visit Report (Discharge Instructions) for additional information. Follow-Up 1. recommend visit with registered medical assistant of [facility] within 1-2 days 2. recommend referral to [facility] within 2-3 weeks for chronic urinary incontinence 3. recommend follow-up with Dr. Garcia within 1 week of discharge from [facility] 4. audiology referral in the near future as well for hearing test Additional Copies To RV. Vieira MD; Deborah Morocho; Juana Payan ., VIDEO ENGINEER
[2016-06-03 16:02] VITALS: BP 111/69; PULSE 77; TEMP 36.6; O2SAT 93
== END 2016-06-03 16:35 | DRG 153 ==
LOC: ENRESERVDT → ENRESERVTM → C.EDB 14:23 → C.4E 19:56 → OBSVTOIN 05-27 13:58
PROVIDERS: ADMIT Hospitalist; ATTEND Internal Medicine
DX: J01.10 Acute frontal sinusitis, unspecified (principal); K86.2 Cyst of pancreas; E44.1 Mild protein-calorie malnutrition; I10 Essential (primary) hypertension; E03.9 Hypothyroidism, unspecified; E78.5 Hyperlipidemia, unspecified; E86.0 Dehydration; J01.00 Acute maxillary sinusitis, unspecified; E16.2 Hypoglycemia, unspecified; R32 Unspecified urinary incontinence; Z79.82 Long term (current) use of aspirin; Z79.899 Other long term (current) drug therapy

== ENCOUNTER → 2017-05-30 | Outpatient (CLI) | payer OTHER ==
[~2017-05-30] MED LIST changes: +ALL60 PO; +ASPI81TA28 PO; +CARV3.122 PO; +CARV6.252 PO; +CEFU1TAB35 PO; -CMD6 PO; -CRG125 PO; +Enteral Nutrition Formula PO; -FLNIN NAE; +LCTX PO; -LEVO100T84 PO; +LEVO75TA PO; -LISI-461 PO; +LISI20TA3 PO; +MAGN400T6 PO; +OXGN; +SALI0.6510; +TRIA1SPR4 NAE; +TYL325X PO
[2017-05-30 13:15] LABS: BASO % 0.4 %; BASO ABS # 0.03 K/uL (0-0.2); EOS % 3.9 %; HEMATOCRIT 41.4 % (37-47); IG# 0.01 K/uL (0.00-0.02); LYMPH % 27.5 %; MEAN CELL VOLUME 97.4 fL (80-100); MEAN CORPUSCULAR HEMOGLOBIN 32.9 pg (25-34); MEAN CORPUSCULAR HGB CONC 33.8 g/dl (32-36); MEAN PLATELET VOLUME 10.9 fL (7.4-10.4); MONO % 8.1 %; MONO ABS # 0.62 K/uL (0.11-0.59); NEUT ABS # 4.58 K/uL (1.4-6.5); PLATELET COUNT 286 K/uL (130-400); RED CELL DISTRIBUTION WIDTH CV 13.4 % (11.5-14.5); RED CELL DISTRIBUTION WIDTH SD 47.6 fL (36.4-46.3); WHITE BLOOD COUNT 7.64 K/uL (4.8-10.8)
[2017-05-30 13:57] LABS: ALBUMIN 3.4 gm/dl (3.4-5.0); ALT/SGPT 19 U/L (12-78); AST/SGOT 18 U/L (15-37); BLOOD UREA NITROGEN 21 mg/dl (7-18); CALCIUM 8.9 mg/dl (8.5-10.1); CARBON DIOXIDE 30 mmol/L (21-32); CREATININE 0.93 mg/dl (0.60-1.20); GLUCOSE 97 mg/dl (70-99); POTASSIUM 4.2 mmol/L (3.5-5.1); SODIUM 133 mmol/L (136-145)
[2017-05-30 14:08] LABS: ALKALINE PHOSPHATASE 57 U/L (45-117); CHOLESTEROL 140 mg/dl (0-200); LDL CHOLESTEROL CALCULATED 40 mg/dl; TOTAL PROTEIN 7.3 gm/dl (6.4-8.2)
== END | disposition home or self-care (01) ==
LOC: C.LAB1850 11:40
PROVIDERS: ATTEND Physician Assistant
DX: E03.9 Hypothyroidism, unspecified (principal); E78.5 Hyperlipidemia, unspecified; I10 Essential (primary) hypertension

== ENCOUNTER 2019-02-05 06:36 | Inpatient (IN) ==
--- NOTE | 2019-01-23 08:49 | PAT Medication Instructions ---
Medication Instructions Date of Service January 23, 2019 Home Medications Medication Instructions Recorded tramadol 50 mg tablet 50 mg PO BID PRN #20 tab 01/15/19 magnesium oxide 400 mg (241.3 mg magnesium) tablet 400 mg PO QAM calcium carbonate 600 mg calcium (1,500 mg) tablet 600 mg PO QPM lactobacillus combination no.9 4 billion cell capsule 4,000 mmu cells PO QAM multivitamin tablet 1 tab PO QAM acetaminophen 500 mg tablet 1,000 mg PO Q6H PRN tramadol 50 mg tablet 50 mg PO BID PRN aspirin [Aspirin Low Dose] 81 mg PO QPM carvedilol 3.125 mg PO QPM carvedilol 6.25 mg PO QAM cholecalciferol (vitamin D3) [Vitamin D3] 4,000 unit PO QPM levothyroxine 75 mcg PO QAM lisinopril 30 mg PO QAM simvastatin 20 mg PO QPM vitamin B complex 1 tab PO QAM DO NOT take the morning of surgery magnesium oxide 400 mg (241.3 mg magnesium) tablet 400 mg PO QAM lactobacillus combination no.9 4 billion cell capsule 4,000 mmu cells PO QAM multivitamin tablet 1 tab PO QAM lisinopril 30 mg PO QAM vitamin B complex 1 tab PO QAM Take morning of surgery With a small sip of water, OTHERWISE NOTHING TO EAT OR DRINK AFTER MIDNIGHT: acetaminophen 500 mg tablet 1,000 mg PO Q6H PRN (okay to take up to 4 hours prior to surgery if needed) tramadol 50 mg tablet 50 mg PO BID PRN (okay to take up to 4 hours prior to surgery if needed) carvedilol 6.25 mg PO QAM levothyroxine 75 mcg PO QAM Take evening before surgery calcium carbonate 600 mg calcium (1,500 mg) tablet 600 mg PO QPM acetaminophen 500 mg tablet 1,000 mg PO Q6H PRN (if needed) tramadol 50 mg tablet 50 mg PO BID PRN (if needed) aspirin [Aspirin Low Dose] 81 mg PO QPM carvedilol 3.125 mg PO QPM cholecalciferol (vitamin D3) [Vitamin D3] 4,000 unit PO QPM simvastatin 20 mg PO QPM Other Notes If you have any questions please call us at [phone] or [phone] or [phone] or [phone]
--- NOTE | 2019-01-23 10:55 | Anesthesiology Consultation ---
Date of Service January 23, 2019 Assessment & Plan (1) Encounter for pre-operative examination: Cardio: 01/15/19: "Patient is currently asymptomatic with no anginal symptoms, however, she has a very limited functional status due to right hip/leg and back pain, and she is unable to perform 4 METS of activity. It is therefore recommended that she undergo a pharmacologic nuclear stress test for further evaluation of myocardial ischemia prior to surgery." Stress test/ECHO ordered- done/reviewed; cardio addendum: 01/24/19: "patient is at an acceptable risk to proceed with upcoming surgery without any additional cardiovascular testing or intervention. Recommend close monitoring and avoidance of hypotension, hypertension, tachycardia, hypoxia, and significant anemia throughout the perioperative period to reduce myocardial oxygen demand and meet myocardial oxygen delivery." Chart Review Chart Review: Acceptable Risk for Surgery and Patient seen in Pre Admission Testing Teaching & Discussion Pre-Anesthesia Teaching/Discussion Notes: Instructed NPO after midnight before surgery,except medications with 15 cc of water. Medication instructions provided according to the PAT guidelines. History Surgery Operation Date: 02/05/19 12:45 Proposed Procedures p Right Total Hip Replacement - Hola Izquierdo MD Height/Weight Height: 5 ft 5 in Weight: 50.031 kg (per verbal, unable to get weight at PAT visit (unable to bear weight in setting of hip pain)) Allergies Allergy/AdvReac Type Severity Reaction Status Date / Time No Known Drug Allergies Allergy Verified 01/21/19 16:03 Medications Home Medications Medication Instructions Recorded Confirmed Last Taken magnesium oxide 400 mg (241.3 mg 400 mg PO QAM #90 tab 11/20/18 01/21/19 Unknown magnesium) tablet Oxygen Home #1 ea 11/21/18 01/15/19 Unknown calcium carbonate 600 mg calcium 600 mg PO QPM tab 11/21/18 01/21/19 Unknown (1,500 mg) tablet lactobacillus combination no.9 4 4,000 mmu cells PO QAM 11/21/18 01/21/19 Unknown billion cell capsule multivitamin tablet 1 tab PO QAM 11/21/18 01/21/19 Unknown acetaminophen 500 mg tablet 1,000 mg PO Q6H PRN tab 01/09/19 01/21/19 Unknown tramadol 50 mg tablet 50 mg PO BID PRN #20 tab 01/15/19 01/21/19 Unknown aspirin [Aspirin Low Dose] 81 mg PO QPM 01/21/19 01/21/19 Unknown carvedilol 3.125 mg PO QPM 01/21/19 01/21/19 Unknown carvedilol 6.25 mg PO QAM 01/21/19 01/21/19 Unknown cholecalciferol (vitamin D3) 4,000 unit PO QPM 01/21/19 01/21/19 Unknown [Vitamin D3] levothyroxine 75 mcg PO QAM 01/21/19 01/21/19 Unknown lisinopril 30 mg PO QAM 01/21/19 01/21/19 Unknown simvastatin 20 mg PO QPM 01/21/19 01/21/19 Unknown vitamin B complex 1 tab PO QAM 01/21/19 01/21/19 Unknown Past Medical History Medical History Nocturnal hypoxemia 2L O2 HS Arthritis 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) Chronic leg pain Depression Gait instability Hearing decreased Hyperlipidemia Hypertension Hypothyroidism Urinary incontinence History of blood transfusion 15 years ago in setting of hip contusion LBBB (left bundle branch block) Systolic CHF Urinary frequency Exercise / Class Metabolic Activity III < 4 Walking/Shop/Light housework (uses walker/"scoots" on walker more in setting of increasing hip pain) Past Family History Family History Mother Osteoporosis Arthritis Father Cardiac arrest Myocardial infarction Past Surgical History Surgical History History of cataract surgery History of hip replacement LEFT History of oral surgery Hx of varicose vein ligation and stripping Past Anesthesia History No Hx of Anesthesia Complications and No Family Hx of Anesthesia Complications History of PONV No Hx of PONV and No Hx of Motion Sickness Social History Smoking Status: Never smoker Do You Dip or Chew Tobacco: No Hx Alcohol Use: Yes Alcohol type: wine alcohol intake frequency: 0-2 drinks per day (1/2 GLASS WINE) Hx Substance Use: No Review of Systems Patient denies chest pain, shortness of breath, reflux, cough, wheezing, palpitations. Physical Exam Vital Signs VITALS BP 137/73 P 65 TEMP 97.8 SP02 96%RA RESP 18 PHYSICAL Mildly decreased cervical extension Full TMJ range of motion. TMD 3 finger breaths Mallampati Score 2 Dentition: dentures full on upper with missing cap, lower partial Lungs: clear throughout to auscultation Cardiac: regular rate and rhythm, distant heart sounds Spine: normal Carotid arteries: negative bruit Extremities: no edema Testing Laboratory Results 01/23/19 11:16 01/23/19 11:16 PT 11.1 Seconds (9.0-12.0) 01/23/19 11:16 INR 1.1 (0.9-1.1) 01/23/19 11:16 APTT 26.2 Seconds (21.0-31.0) 01/23/19 11:16 Blood Type O Positive 01/23/19 11:16 Antibody Screen NEGATIVE 01/23/19 11:16 Electrocardiogram Date: 01/23/19 SB with PAC's at 55bpm. LAD. LBBB (chronic; noted on 05/26/16 EKG at [facility]). Chest X-Ray Date: 01/23/19 Mild emphysematous change. Tortuosity and ectasia of thoracic aorta. Diaphragms are smooth but somewhat flattened. No focal infiltrate. Chronic and emphysematous change. No acute process. Echocardiogram Date: 01/15/19 EF 40-45%. Akinesis of the mid to distal septum and basal inferior wall. Otherwise global HK with relative sparing of the anterior wall. Mild cLVH. Septal motion consistent with BBB. Moderate mitral annular calcification. Mild MR. Small pericardial effusion without evidence of tamponade. Technically difficult study. Stress Test Date: 01/23/19 Type: nuclear (Lexiscan) Negative myocardial perfusion study for ischemia. Large fixed inferior, inferoseptal, inferolateral, and apical defects, which may represent infarct, especially in the septal and apical areas given wall motion abnormalities in those territories. EF 51%. Lexiscan induced shortness of breath. Indeterminate Lexiscan ECG.
[2019-01-23 11:50] LABS: Basophils # (auto) 0.03 K/uL (0-0.2); Basophils % (auto) 0.4 %; Eosinophils # (auto) 0.25 K/uL (0-0.5); Eosinophils % (auto) 3.4 %; Hematocrit (blood only) 38.8 % (37-47); Hemoglobin 13.6 g/dL (12.0-16.0); Immature Granulocytes # (auto) 0.01 K/uL (0.00-0.02); Immature Granulocytes % (auto) 0.1 %; Lymphocytes % (auto) 27.3 %; Mean Corpuscular Hemoglobin 35.5 pg (25-34); Mean Corpuscular Hgb Conc 35.1 g/dL (32-36); Mean Corpuscular Volume 101.3 fL (80-100); Mean Platelet Volume 10.5 fL (7.4-10.4); Monocytes # (auto) 0.71 K/uL (0.11-0.59); Monocytes % (auto) 9.7 %; Neutrophils # (auto) 4.32 K/uL (1.4-6.5); Neutrophils % (auto) 59.1 %; Platelet Count 290 K/uL (130-400); RDW Standard Deviation 48.2 fL (36.4-46.3); Red Blood Count 3.83 M/uL (4.2-5.4); White Blood Count 7.32 K/uL (4.8-10.8)
[2019-01-23 12:04] LABS: INR 1.1 (0.9-1.1); Partial Thromboplastin Time 26.2 Seconds (21.0-31.0); Prothrombin Time 11.1 Seconds (9.0-12.0)
--- NOTE | 2019-01-23 12:14 | XRay Report ---
XR chest Pre-admission PA/Lat CLINICAL HISTORY: pat preoperative evaluation COMPARISON STUDY: 05/26/2016 FINDINGS: Mild emphysematous change. Tortuosity and ectasia of thoracic aorta. Diaphragms are smooth but somewhat flattened. No focal infiltrate. IMPRESSION: Chronic and emphysematous change. No acute process. The above report was generated using voice recognition software. It may contain grammatical, syntax or spelling errors. Electronically signed by: Byron Farmer M.D. 01/23/2019 12:13 PM
[2019-01-23 12:20] LABS: BUN Creatinine Ratio 37.2 (10-20); Calcium 9.2 mg/dl (8.5-10.1); Creatinine Clr Calc Pharmacy 41.4 ml/min; Est GFR (Non-African American) 69.9; Potassium 4.6 mmol/L (3.5-5.1)
--- NOTE | 2019-02-02 19:59 | History and Physical Report ---
DATE OF ADMISSION: 02/05/2019 CHIEF COMPLAINT: Right hip pain. HISTORY OF PRESENT ILLNESS: The patient is an 88-year-old white female referred by my partner Dr. Woo for surgical treatment of her right hip. She has a long history of right hip pain and discomfort which has gradually gotten worse over time. She now lives with her [id number] who can help her and would like to now have her hip fixed. She has occasionally been wheelchair bound intermittently for quite some time due to her pain. She uses a walker to get around. She has got groin pain and has difficulty lying in bed due to her flexion contracture. She takes tramadol, but does not really help much. She would like to proceed with surgery. Of note, the patient does have a left hip fracture treated with a bipolar hip arthroplasty in 2002 in [facility]. PAST MEDICAL HISTORY: 1. Elevated cholesterol. 2. Hypertension. 3. Coronary artery disease. 4. Congestive heart failure. 5. Hypothyroidism. 6. Low back pain. PAST SURGICAL HISTORY: Left hip arthroplasty in 2002 for fracture. ALLERGIES: None. CURRENT MEDICINES: 1. Tylenol p.r.n. 2. Aspirin 81 mg. 3. Calcium carbonate 600 mg. 4. Carvedilol 6.25 mg a day. 5. Lactobacillus. 6. Levothyroxine 75 mcg daily. 7. Lisinopril 30 mg. 8. Magnesium oxide 400 mg. 9. Multivitamin. 10. Oxygen. 11. Simvastatin. 12. Tramadol as needed. SOCIAL HISTORY: An 88-year-old white female. Lives with her [id number]. Does not smoke. She is a . One drink of alcohol per day. FAMILY HISTORY: Noncontributory. REVIEW OF SYSTEMS: Negative for diabetes, neurologic problems, vascular problems or bleeding disorders. Denies any chest pain or shortness of breath. No history of DVT or PE. PHYSICAL EXAMINATION: GENERAL: This is a frail elderly female comes in a wheelchair. HEENT: Benign. NECK: Supple, no lymphadenopathy. LUNGS: Clear to auscultation. HEART: Has a regular rate and rhythm. ABDOMEN: Soft, nontender, nondistended. EXTREMITIES: Grossly neurovascularly intact except as follows: Examination of the right hip reveals about a 2 cm leg length discrepancy. She does have marked pain with any type of hip motion and lot of crepitance which is actually audible. No knee effusion. She is neurologically intact. X-RAYS: X-ray of right hip were reviewed, shows advanced right hip DJD. She has complete loss of joint space. The bone density looks remarkably good. ASSESSMENT: An 88-year-old white female status post a left hip bipolar arthroplasty for fracture with advanced right hip arthritis. It is really debilitating for her to the point where she is almost wheelchair bound. PLAN: We talked about treatment options. She would like to have her right hip fixed. The risks and benefits of right total hip replacement were explained to the patient including but not limited to DVT, PE, , infection, neurological injury, vascular injury, bleeding problem, pain, limited range of motion, stiffness, failure to relieve her symptoms, incomplete relief of symptoms, need for further surgery in future, fracture, leg length inequality, nerve palsy, dislocation, persistent pain, etc. The patient understands and desires to proceed. Informed consent was obtained. She does have significant flexion contracture, which is going to be difficult to fix. Her bone density looks good. We will plan using a noncemented stem but we will have a cemented stem available if needed. As far as discharge plans, she is hoping to go to [facility] for rehab. We did talk about holding the lisinopril the morning of surgery.
[~2019-02-05 06:36] MED LIST changes: +ACETAMINOPHEN 500 MG TAB PO SCH; -ALL60 PO; -ASPI81TA28 PO; -CARV3.122 PO; -CARV6.252 PO; +CEFAZOLIN 2000MG 2,000 MG/15 ML SYR IV SCH; -CEFU1TAB35 PO; -Enteral Nutrition Formula PO; +FAMOTIDINE 20 MG TAB PO SCH; +GABAPENTIN 300 MG CAP PO SCH; -LCTX PO; -LEVO75TA PO; -LISI20TA3 PO; +LR 500ML BOLUS, THEN 15ML/HR IV SCH; +LR 60ML/HR IV SCH; -MAGN400T6 PO; +METOCLOPRAMIDE HCL 10 MG TABLET PO SCH; -MULT-506 PO; -OXGN; -SALI0.6510; -SIMV20TA2 PO; +TRANEXAMIC ACID 1,000 MG **IV Pre-op IV SCH; -TRIA1SPR4 NAE; -TYL325X PO
--- NOTE | 2019-02-05 06:52 | History & Physical Bridge Note ---
Date of Service February 05, 2019 History & Physical Bridge Note I have examined the patient, reviewed the History & Physical and in the interval since the performance of the History & Physical I have noted the following changes of clinical significance: no changes noted
[2019-02-05] MEDS ORDERED: BUPIVACAINE 0.5 % 5 MG/1 ML PF 10ML VIAL ONE (07:15)
[2019-02-05] MEDS ORDERED: LIDOCAINE HCL 2% 2 ML VIAL/AMP(20MG/ML) INFIL ONE (08:04)
[2019-02-05] MEDS ORDERED: ONDANSETRON INJ 2 MG/ML 2 ML VIAL ONE (08:04)
[2019-02-05] MEDS ORDERED: PROPOFOL IV EMULSION 10 MG/ML 20 ML VIAL IV ONE (08:04)
[2019-02-05] MEDS ORDERED: fentaNYL citrate 100 MCG/2 ML VIAL ONE (08:04)
[2019-02-05] MEDS ORDERED: fentaNYL citrate 100 MCG/2 ML VIAL IV PRN (08:39)
[2019-02-05] MEDS ORDERED: HYDROmorphone INJ 1 MG/ML SYRINGE IV PRN (08:39)
[2019-02-05] MEDS ORDERED: ePHEDrine sulfate 50 MG/ML AMP IV PRN (08:39)
[2019-02-05] MEDS ORDERED: ATROPINE SULFATE 0.1 MG/ML 10ML SYR IV PRN (08:39)
[2019-02-05] MEDS ORDERED: ONDANSETRON INJ 2 MG/ML 2 ML VIAL IV PRN ×2 (08:39→12:32)
[2019-02-05] MEDS ORDERED: PHENYLEPHRINE 100MCG/ML 5ML SYR IV PRN (08:39)
[2019-02-05] MEDS ORDERED: LABETALOL HCL IV 5 MG/ML 20ML IV PRN (08:39)
[2019-02-05] MEDS ORDERED: BUPIVACAINE/EPINEPHRINE 0.5% MPF 1:200,000 30 ML VIAL ONE (08:56)
[2019-02-05] MEDS ORDERED: BACITRACIN INJ 50,000 UNIT VIAL ONE (08:57)
[2019-02-05] MEDS ORDERED: MIDAZOLAM HCL 1 MG/ML 2ML VIAL ONE (09:09)
[2019-02-05] MEDS ORDERED: PHENYLEPHRINE HCL 10 MG/ML VIAL ONE (10:32)
[2019-02-05] MEDS ORDERED: ePHEDrine sulfate 50 MG/ML SYR ONE (10:32)
--- NOTE | 2019-02-05 11:11 | Post Operative Brief Note ---
PG Immediate Post Op with CF Date of Surgery February 05, 2019 Pre & Post Diagnosis Operation Date: 02/05/19 09:05 Pre-Op Diagnosis: Right Hip Degenerative Joint Disease Post-Op Diagnosis: Right Hip Degenerative Joint Disease Procedure Operation Date: 02/05/19 09:05 Actual Procedures p Right Total Hip Arthroplasty, Uncemented(Right) - Hola Izquierdo MD Surgeon Hola Izquierdo MD Shirring Machine Operator Conchita, PAC Estimated Blood Loss 200 Findings Consistent with Post-Op Diagnosis Fluids 1000 cc Specimens Specimen Description: Permanent Specimen A: Right femoral head Drains [place] Catheter Anesthesia Type Spinal MAC Complications none Disposition Accompanied Patient To Recovery: Yes Disposition: Recovery Room
--- NOTE | 2019-02-05 12:05 | Anesthesiology Progress Note ---
Date of Service February 05, 2019 Anesthesia Post Procedure Vital Signs Vital Signs: Temp Pulse Pulse Resp BP Pulse Ox 02/05/19 12:00 78 18 145/59 H 94 02/05/19 11:50 36.2 C L 72 22 116/56 L 94 02/05/19 11:40 67 17 135/57 L 96 02/05/19 11:30 67 15 154/64 H 97 02/05/19 11:20 64 13 148/60 H 100 02/05/19 11:12 36.3 C L 64 15 149/57 H 99 02/05/19 07:29 36.5 C 61 20 162/58 H 98 Pain Intensity Right Leg: Pain Intensity: 1 Transfer of Care Handoff Completed per policy Notes Mental Status: alert / awake / arousable Patient Amnestic to Procedure: Yes Nausea / Vomiting: adequately controlled Pain: adequately controlled Airway Patency, RR, SpO2: stable & adequate BP & HR: stable & adequate Hydration State: stable & adequate Neuraxial Anesthesia: was administered and sensory block is resolving Anesthetic Complications: no major complications apparent and Pt Satisfied with anesthetic care
--- NOTE | 2019-02-05 12:10 | XRay Report ---
XR hip 1V RT w pelvis CLINICAL HISTORY: Postoperative evaluation. COMPARISON: Right hip and right femur radiographs November 21, 2018. FINDINGS: Alignment of the total right hip arthroplasty is anatomic. There is no fracture or unexpec clarita radiopaque foreign body. Acetabular screws are noted. There are skin osiris. Left hip arthroplas ty is noted. IMPRESSION: Expected findings following total right hip arthroplasty. Electronically signed by: Derick Colmenares M.D. 02/05/2019 12:09 PM
--- NOTE | 2019-02-05 12:14 | Operative Report ---
DATE OF OPERATION: 02/05/2019 SURGEON: Hola Izquierdo MD [employer] SUPERVISOR: MEG Raza PREOPERATIVE DIAGNOSES: 1. Advanced right hip degenerative joint disease. 2. Chronic right hip abductor avulsion. POSTOPERATIVE DIAGNOSES: 1. Advanced right hip degenerative joint disease. 2. Chronic right hip abductor avulsion. PROCEDURES PERFORMED: 1. Right uncemented total hip arthroplasty. 2. Right hip abductor repair. COMPLICATIONS: None. ESTIMATED BLOOD LOSS: 200 mL. FLUID REPLACEMENT: 1000 mL crystalloid fluid replacement. ANESTHESIA: Spinal. DRAINS: None. SPECIMEN: Right femoral head sent for pathology. OPERATIVE INDICATIONS: An 88-year-old white female who has had a long history of hip problems. She had a hip fracture fixed elsewhere around 2002. Over the past several years, she has become incapacitated by right hip pain to the point where she uses a wheelchair to get around. She developed a marked flexion contracture. X-rays showed advanced hip arthritis. She elected to proceed with surgical treatment. OPERATIVE FINDINGS: Operative findings revealed extensive advanced right hip DJD with grade 4 [id number] disease in the entire femoral head and acetabulum. She had a high hip center. She had osteophytes anterior and posteriorly off the acetabulum. She did have about a 30-degree flexion contracture of her hip at least and maybe more. OPERATIVE IMPLANTS: Operative implants consisted of: 1. A Biomet G7 size 56 mm acetabular shell. 2. A 6.5 cancellous acetabular screws, 1 at 35 mm in length and 1 at 20 mm in length. 3. An apex hole eliminator. 4. A highly cross-linked polyethylene liner with a 56 mm outer diameter, 40 mm inner diameter with a reed placed inferior and posterior to maximize stability. 5. A DePuy Corail size 10 standard offset femoral head. 6. A +1.5/40 mm ceramic articular ball. OPERATIVE PROCEDURE: The patient was taken to the operating room, identified and placed on the operating table in supine position. All contact areas were appropriately padded. IV antibiotics provided by anesthesia team. A spinal anesthetic had been implemented in the holding area. Aparicio catheter was placed in sterile fashion. The patient was then placed in the left lateral decubitus position. An axillary roll was placed. Stlberg hip positioner was used for positioning. All contact areas were meticulously padded and the right hip and leg were then prepped and draped in usual sterile fashion. A posterolateral approach to the right hip was then performed through a curvilinear incision centered over the greater trochanter. Sharp dissection was carried through subcutaneous tissue down to the level of the IT band and gluteal fascia. The IT band and gluteal fascia were incised longitudinally in line with skin incision. The fascia was fairly thin. The greater trochanteric bursa was excised. She had a chronic avulsion of her hip abductors, which has been there for many years based on the appearance. The piriformis, external rotators and posterior capsule were then released from the posterior aspect of the femur as a single layer, taking great care to protect the sciatic nerve at all times. Hip was internally rotated and dislocated. Femoral neck osteotomy cut was made with the initial cut about 12 mm above the lesser trochanter. Femoral head was removed and sent for pathology. The femur was retracted anteriorly. Attention was then drawn to the acetabulum. The acetabular labrum was excised. The pulvinar fat was excised. I then reamed beginning with a size 49 and progressing up to 55. I did enter the acetabulum with a 56 reamer in order to make sure we could see the 56 cup. A 56 Biomet G7 acetabular shell was then placed in about 40 degrees of lateral opening and 20 degrees of anteversion. It was fixed with two 6.5 cancellous acetabular screws. Some anterior osteophytes were removed. A trial liner was placed. Attention was then drawn to the femur. The proximal femur was entered with cookie cutter followed by canal finder. I then broached beginning with a size 8 and progressing up to a 10. We got good fit at 10. Calcar reamer was used to smoothen off the calcar. I then trialed the hip and the hip was quite tight in extension. The hip was fully stable, but just quite tight in extension. Therefore, I removed the broach. We resected an additional 5 mm of bone from the proximal femoral neck. We then broached again with the 10 broach. It fit nicely. I then trialed the hip with a 1.5 head and still had about a 10-15 degree flexion contracture, but was much improved. The hip was stable. I did elect to place a 40 head in order to maximize stability in this patient who has had a flexion contracture and spends a lot of time in a wheelchair. We elected to place these implants. All trial implants were removed. An apex hole eliminator was placed. Highly cross-linked polyethylene liner with a 56 mm outer diameter, 40 mm inner diameter and a reed placed inferior and posterior to maximize stability, it was impacted in position. A DePuy Corail size 10 standard offset stem was then placed followed by a +1.5/36 mm ceramic articular ball. Hip was located and once again found to be stable. The wound was irrigated with copious amounts of pulsatile lavage solution. I injected locally with about 40 mL of 0.5% Marcaine with epinephrine. The posterior capsule and external rotators were then repaired as a single layer through drill holes in the posterior trochanter. I did scuff up the greater trochanter area. A single Biomet JuggerKnot anchor was then placed. There were 2 sets of sutures on this and 1 was placed through the anterior hip abductors and the other set was placed through the superior hip abductors and then these were tied down to the trochanter. I irrigated the wound extensively. The IT band and gluteal fascia were then closed with #1 PDS suture in running fashion. Subcutaneous tissue was then closed with 2 layers with the deep layer #1 Vicryl suture and the superficial layers with 2-0 Dexon suture in a buried interrupted fashion. Skin was closed with skin osiris. Leg was then cleaned, dried and a sterile dressing of Xeroform, 4 x 4's, sterile ABD pad and foam tape was applied. The patient was then transferred to the recovery room in stable condition. The patient tolerated the procedure well with no complication. All needle and sponge counts were correct at the end of the operation. I attest to the content of the Intraoperative Record and any orders documented therein. Any exception s are noted below.
[2019-02-05] MEDS ORDERED: MAGNESIUM HYDROXIDE SUSP 30 ML UDC PO PRN (12:32)
[2019-02-05] MEDS ORDERED: ALUMINUM/MAGNESIUM SUSP 30 ML UDC PO PRN (12:32)
[2019-02-05] MEDS ORDERED: BISACODYL 10 MG SUPP PR PRN (12:32)
[2019-02-05] MEDS ORDERED: NALOXONE HCL 0.4 MG/1 ML VIAL/CARP IV PRN (12:32)
[2019-02-05] MEDS ORDERED: METOCLOPRAMIDE HCL INJ 5 MG/ML 2 ML VIAL IV PRN (12:32)
[2019-02-05] MEDS: KETOROLAC TROMETHAMINE 15 MG/ML VIAL IV SCH ×2 (13:51→19:32)
[2019-02-05] MEDS: ACETAMINOPHEN 500 MG TAB PO SCH ×2 (13:51→20:12)
[2019-02-05] MEDS: SODIUM CHLORIDE 0.9% 1000ML 1,000 ML IV SCH ×2 (13:53→20:14)
[2019-02-05] MEDS: TRAMADOL HCL 50 MG TABLET PO PRN (16:26)
[2019-02-05] MEDS ORDERED: TRANEXAMIC ACID 1,000 MG in 0.9 % SODIUM CHLORIDE 100 ML IV SCH (17:30)
--- NOTE | 2019-02-05 18:02 | Progress Note ---
DATE: 02/05/2019 SUBJECTIVE: An 88-year-old white female postop from a right hip replacement. She is doing pretty well. Really not having much pain yet. Denies any chest pain or shortness of breath. Not feeling dizzy or lightheaded. OBJECTIVE: VITAL SIGNS: Temperature 36.4. Vital signs stable. GENERAL: Reveals a pleasant elderly frail female who is lying in bed. I had to wake her up when I visited her this afternoon. LUNGS: Clear to auscultation. HEART: Has a regular rate and rhythm. ABDOMEN: Soft, nontender, nondistended. EXTREMITIES: Grossly neurovascularly intact except as follows. The patient was easily arousable. Examination of the right hip and leg reveals the leg lengths to be equal. Her dressing is clean, dry and intact. She can dorsiflex and plantarflex her foot appropriately. She is neurologically intact. X-RAYS: The right hip from recovery room reviewed. It shows right uncemented total hip arthroplasty. Components looked to be in good position. No signs of problems. ASSESSMENT: An 88-year-old white female postop from a right hip replacement, doing quite well. Pain is controlled. Hip is located. She is neurologically intact. PLAN: 1. DVT prophylaxis including thigh-high TEDs, SCDs, and aspirin twice a day. 2. PT/OT. Weight bear as tolerated. Right total hip protocol. 3. Pain control, doing well with current pain regimen. 4. We are going to stick using tramadol as she has had experience with that and had done okay with it. 5. Disposition: She is hoping to be discharged to a rehab. She is open to go to [facility] for a brief rehab stay.
[2019-02-05] MEDS: ASCORBIC ACID 500 MG TAB PO SCH (18:52)
[2019-02-05] MEDS: CEFAZOLIN 1000MG 1,000 MG/7.5 ML SYR IV SCH (18:52)
[2019-02-05] MEDS: FERROUS GLUCONATE 324 MG TAB PO SCH (18:52)
[2019-02-05] MEDS: HYDROmorphone INJ 0.5 MG/0.5 ML SYR IV PRN (19:03)
[2019-02-05] MEDS: DOCUSATE SODIUM 100 MG CAP PO SCH (20:12)
[2019-02-05] MEDS: carvediloL 3.125 MG TAB PO SCH (20:12)
[2019-02-05] MEDS: SIMVASTATIN 20 MG TAB PO SCH (20:13)
[2019-02-05] MEDS: CALCIUM 600MG + VIT D 400 IU TAB PO SCH (20:13)
[2019-02-05] MEDS: CHOLECALCIFEROL 1,000 UNITS TAB PO SCH (20:13)
[2019-02-05] MEDS: ASPIRIN 81 MG ECTAB PO SCH (20:22)
[2019-02-05] MEDS: SENNA 8.6 MG TAB PO SCH (20:36)
[2019-02-06] MEDS: KETOROLAC TROMETHAMINE 15 MG/ML VIAL IV SCH ×4 (01:31→20:54)
[2019-02-06] MEDS: CEFAZOLIN 1000MG 1,000 MG/7.5 ML SYR IV SCH (01:31)
[2019-02-06] MEDS: ACETAMINOPHEN 500 MG TAB PO SCH ×3 (05:53→20:56)
[2019-02-06] MEDS: LEVOTHYROXINE SODIUM 75 MCG TABLET PO SCH (05:53)
[2019-02-06 05:55] LABS: Basophils # (auto) 0.01 K/uL (0-0.2); Basophils % (auto) 0.1 %; Eosinophils # (auto) 0.21 K/uL (0-0.5); Eosinophils % (auto) 3.1 %; Hematocrit (blood only) 32.8 % (37-47); Hemoglobin 11.2 g/dL (12.0-16.0); Immature Granulocytes # (auto) 0.02 K/uL (0.00-0.02); Immature Granulocytes % (auto) 0.3 %; Lymphocytes # (auto) 1.32 K/uL (1.2-3.4); Lymphocytes % (auto) 19.2 %; Mean Corpuscular Hemoglobin 34.8 pg (25-34); Mean Corpuscular Hgb Conc 34.1 g/dL (32-36); Mean Corpuscular Volume 101.9 fL (80-100); Monocytes # (auto) 0.55 K/uL (0.11-0.59); Neutrophils # (auto) 4.75 K/uL (1.4-6.5); Neutrophils % (auto) 69.3 %; Platelet Count 186 K/uL (130-400); RDW Coefficient of Variation 12.5 % (11.5-14.5); RDW Standard Deviation 46.1 fL (36.4-46.3); Red Blood Count 3.22 M/uL (4.2-5.4); White Blood Count 6.86 K/uL (4.8-10.8)
[2019-02-06 06:30] LABS: BUN Creatinine Ratio 24.7 (10-20); Calcium 8.1 mg/dl (8.5-10.1); Creatinine Clr Calc Pharmacy 37.3 ml/min; Est GFR (African American) 70.9; Est GFR (Non-African American) 61.2; Potassium 5.3 mmol/L (3.5-5.1)
--- NOTE | 2019-02-06 07:44 | Progress Note ---
DATE: 02/06/2019 SUBJECTIVE: An 88-year-old white female postop day 1 from a right hip replacement. She is doing pretty well. Had a pretty miserable experience trying to get up and walk some last evening. She is doing fine in bed. Really has been walking quite some time. No chest pain or shortness of breath. Not feeling dizzy or lightheaded. OBJECTIVE: VITAL SIGNS: Temperature 36.6. Vital signs stable. GENERAL: Physical examination shows a frail, elderly female. She is sitting up in bed, looks reasonably comfortable. EXTREMITIES: Examination of the right hip reveals leg lengths were equal. Thigh is soft and supple. Hip is located. She is neurologically intact. LABORATORY DATA: Hemoglobin 11.2. Hematocrit 36.8. Electrolytes are stable. Potassium just slightly elevated at 5.3. ASSESSMENT: An 88-year-old white female postop day 1 from a right hip replacement, doing reasonably well. Quite a bit of pain when standing up, but really has not stood much in a while. She does have a significant flexion contracture, which is going to make a recovery a little bit more difficult for her. 1. DVT prophylaxis including thigh-high TEDs, SCDs, and aspirin twice a day. 2. PT/OT. Weight bear as tolerated. Right total hip protocol. 3. Pain control. Doing reasonably well with current pain regimen. 4. Hyperkalemia. We will check her potassium tomorrow. We will stop her IV fluids with potassium. 5. Disposition. They are hoping for her to be discharged to [facility]. We will look into those options today.
--- NOTE | 2019-02-06 08:17 | Anesthesiology Progress Note ---
Date of Service February 06, 2019 Anesthesia Post Procedure Vital Signs Vital Signs: Temp Pulse Pulse Resp BP Pulse Ox 02/06/19 07:30 36.7 C 52 L 18 146/53 H 96 02/06/19 03:08 36.6 C 63 16 130/63 98 02/05/19 23:49 36.4 C L 66 16 152/65 H 98 02/05/19 20:00 36.3 C L 66 18 156/75 H 92 02/05/19 16:00 36.4 C L 69 18 152/66 H 94 02/05/19 14:29 66 18 164/77 H 99 02/05/19 13:48 69 16 148/68 H 02/05/19 13:02 36.4 C L 70 16 147/70 H 94 02/05/19 12:30 36.4 C L 71 15 149/66 H 93 02/05/19 12:15 36.3 C L 66 18 134/58 L 93 02/05/19 12:00 78 18 145/59 H 94 02/05/19 11:50 36.2 C L 72 22 116/56 L 94 02/05/19 11:40 67 17 135/57 L 96 02/05/19 11:30 67 15 154/64 H 97 02/05/19 11:20 64 13 148/60 H 100 02/05/19 11:12 36.3 C L 64 15 149/57 H 99 Pain Intensity Right Leg: Pain Intensity: 1 Notes Mental Status: alert / awake / arousable and participated in evaluation Nausea / Vomiting: adequately controlled Pain: adequately controlled Airway Patency, RR, SpO2: stable & adequate BP & HR: stable & adequate Hydration State: stable & adequate
[2019-02-06] MEDS ORDERED: MULTIVITAMIN TAB PO SCH (09:00)
[2019-02-06] MEDS: MAGNESIUM OXIDE 400 MG TAB PO SCH (10:00)
[2019-02-06] MEDS: LACTOBACILLUS ACIDOPHILUS (FLORANEX) TAB PO SCH (10:00)
[2019-02-06] MEDS: VITAMIN B COMPLEX TAB PO SCH (10:00)
[2019-02-06] MEDS: carvediloL 6.25 MG TAB PO SCH (10:01)
[2019-02-06] MEDS: LISINOPRIL 10 MG TAB PO SCH (10:01)
[2019-02-06] MEDS: DOCUSATE SODIUM 100 MG CAP PO SCH ×2 (10:03→20:55)
[2019-02-06] MEDS: ASPIRIN 81 MG ECTAB PO SCH ×2 (10:03→20:55)
[2019-02-06] MEDS: MULTIVITAMIN TAB PO SCH (10:04)
[2019-02-06] MEDS: ASCORBIC ACID 500 MG TAB PO SCH ×2 (10:04→16:59)
[2019-02-06] MEDS: FERROUS GLUCONATE 324 MG TAB PO SCH ×2 (10:04→16:59)
[2019-02-06] MEDS: carvediloL 3.125 MG TAB PO SCH (20:55)
[2019-02-06] MEDS: CALCIUM 600MG + VIT D 400 IU TAB PO SCH (20:55)
[2019-02-06] MEDS: SIMVASTATIN 20 MG TAB PO SCH (20:55)
[2019-02-06] MEDS: SENNA 8.6 MG TAB PO SCH (20:55)
[2019-02-06] MEDS: CHOLECALCIFEROL 1,000 UNITS TAB PO SCH (20:55)
[2019-02-07] MEDS: KETOROLAC TROMETHAMINE 15 MG/ML VIAL IV SCH ×2 (05:00→09:31)
[2019-02-07] MEDS: ACETAMINOPHEN 500 MG TAB PO SCH ×3 (05:55→21:31)
[2019-02-07] MEDS: LEVOTHYROXINE SODIUM 75 MCG TABLET PO SCH (05:59)
[2019-02-07 06:29] LABS: BUN Creatinine Ratio 37.7 (10-20); Calcium 8.6 mg/dl (8.5-10.1); Creatinine Clr Calc Pharmacy 53.5 ml/min; Est GFR (African American) 95.7; Est GFR (Non-African American) 82.5; Potassium 4.4 mmol/L (3.5-5.1)
--- NOTE | 2019-02-07 07:53 | Progress Note ---
DATE: 02/07/2019 SUBJECTIVE: An 88-year-old white female postop day 2 from right total hip replacement. She is doing better today. Pain seems to be improved. Seems to be in a little bit better spirits. No chest pain or shortness of breath. Not feeling dizzy or lightheaded. OBJECTIVE: VITAL SIGNS: Temperature 36.6. Vital signs stable. GENERAL: Shows a pleasant elderly frail female. She is sitting up in bed, looks pretty comfortable. EXTREMITIES: Examination of the right hip reveals the leg lengths to be equal. Her hip incision is clean, dry and intact. Thigh is soft and supple. Not much swelling. She is neurologically intact. LABORATORY DATA: Potassium is improved at 4.4. ASSESSMENT: An 88-year-old white female postoperative day 2 from right hip replacement, doing better. Pain seems better controlled. Potassium is corrected. PLAN: 1. DVT prophylaxis including thigh-high TEDs, SCDs, and aspirin twice a day. 2. PT/OT. Weight bear as tolerated. Right total hip protocol. 3. Pain control, doing pretty well with current pain regimen. 4. Disposition: Plan to discharge to rehab for a rehab stay once approved and accepted.
[2019-02-07] MEDS: DOCUSATE SODIUM 100 MG CAP PO SCH ×2 (09:27→20:31)
[2019-02-07] MEDS: MAGNESIUM OXIDE 400 MG TAB PO SCH (09:28)
[2019-02-07] MEDS: VITAMIN B COMPLEX TAB PO SCH (09:29)
[2019-02-07] MEDS: LISINOPRIL 10 MG TAB PO SCH (09:29)
[2019-02-07] MEDS: ASCORBIC ACID 500 MG TAB PO SCH ×2 (09:30→17:57)
[2019-02-07] MEDS: ASPIRIN 81 MG ECTAB PO SCH ×2 (09:30→21:29)
[2019-02-07] MEDS: carvediloL 6.25 MG TAB PO SCH (09:30)
[2019-02-07] MEDS: MULTIVITAMIN TAB PO SCH (09:30)
[2019-02-07] MEDS: FERROUS GLUCONATE 324 MG TAB PO SCH ×2 (09:31→17:57)
[2019-02-07] MEDS: LACTOBACILLUS ACIDOPHILUS (FLORANEX) TAB PO SCH (09:31)
[2019-02-07] MEDS: HYDROmorphone INJ 0.5 MG/0.5 ML SYR IV PRN (15:48)
[2019-02-07] MEDS: SENNA 8.6 MG TAB PO SCH (20:31)
[2019-02-07] MEDS: SIMVASTATIN 20 MG TAB PO SCH (21:28)
[2019-02-07] MEDS: CALCIUM 600MG + VIT D 400 IU TAB PO SCH (21:28)
[2019-02-07] MEDS: CHOLECALCIFEROL 1,000 UNITS TAB PO SCH (21:30)
[2019-02-07] MEDS: carvediloL 3.125 MG TAB PO SCH (21:54)
[2019-02-08] MEDS: LEVOTHYROXINE SODIUM 75 MCG TABLET PO SCH (06:08)
[2019-02-08] MEDS: ACETAMINOPHEN 500 MG TAB PO SCH ×3 (06:09→20:38)
[2019-02-08] MEDS: TRAMADOL HCL 50 MG TABLET PO PRN ×2 (06:10→15:48)
[2019-02-08] MEDS: DOCUSATE SODIUM 100 MG CAP PO SCH ×2 (08:24→20:39)
[2019-02-08] MEDS: carvediloL 6.25 MG TAB PO SCH (08:25)
[2019-02-08] MEDS: ASCORBIC ACID 500 MG TAB PO SCH ×2 (08:25→15:50)
[2019-02-08] MEDS: FERROUS GLUCONATE 324 MG TAB PO SCH ×2 (08:25→15:50)
[2019-02-08] MEDS: VITAMIN B COMPLEX TAB PO SCH (08:26)
[2019-02-08] MEDS: LACTOBACILLUS ACIDOPHILUS (FLORANEX) TAB PO SCH (08:26)
[2019-02-08] MEDS: ASPIRIN 81 MG ECTAB PO SCH ×2 (08:26→20:40)
[2019-02-08] MEDS: MULTIVITAMIN TAB PO SCH (08:26)
[2019-02-08] MEDS: MAGNESIUM OXIDE 400 MG TAB PO SCH (08:26)
[2019-02-08] MEDS: LISINOPRIL 10 MG TAB PO SCH (08:27)
--- NOTE | 2019-02-08 09:23 | Orthopedic Progress Note ---
Date of Service February 08, 2019 Assessment & Plan (1) Osteoarthritis of right hip: Overall she is doing fairly well. She will be seen by physical therapy again today for ambulation and range of motion exercises. She is following her hip precautions. She is on aspirin for DVT prophylaxis. She is orthopedically stable for discharge when a bed becomes available at a rehab facility. Present on Admission?: Yes Felicity Mclain was seen and examined at bedside this morning. Overall she seems to be doing okay. She has been participating with some with physical therapy. She is a lot of soreness in her hip but her pain is generally well controlled. She is waiting to go to rehab. Physical Exam Musculoskeletal: Her incision is clean and dry without drainage. Her leg lengths are equal. She sitting comfortably in a chair. She is neurovascularly intact. Results & Data Vital Signs (Past 12 Hours) Vital Signs Temp Pulse Pulse Resp BP BP Pulse Ox 02/08/19 07:51 36.8 C 72 18 139/73 93 02/07/19 23:35 36.6 C 66 18 129/63 98 02/07/19 21:25 78 129/59 L PG Care Time/CCT Total # of Minutes Spent Total Time Spent with Patient: Total time spent is greater than 50% in coordination of care (as documented) at patient's floor/unit and/or counseling patient:
[2019-02-08] MEDS: SENNA 8.6 MG TAB PO SCH (20:39)
[2019-02-08] MEDS: CALCIUM 600MG + VIT D 400 IU TAB PO SCH (20:39)
[2019-02-08] MEDS: carvediloL 3.125 MG TAB PO SCH (20:40)
[2019-02-08] MEDS: SIMVASTATIN 20 MG TAB PO SCH (20:41)
[2019-02-08] MEDS: CHOLECALCIFEROL 1,000 UNITS TAB PO SCH (20:41)
[2019-02-09] MEDS: LEVOTHYROXINE SODIUM 75 MCG TABLET PO SCH (05:53)
[2019-02-09] MEDS: ACETAMINOPHEN 500 MG TAB PO SCH ×3 (05:53→20:34)
[2019-02-09] MEDS: TRAMADOL HCL 50 MG TABLET PO PRN ×2 (05:55→20:32)
[2019-02-09] MEDS: MAGNESIUM OXIDE 400 MG TAB PO SCH (07:33)
[2019-02-09] MEDS: DOCUSATE SODIUM 100 MG CAP PO SCH ×2 (07:33→20:36)
[2019-02-09] MEDS: LISINOPRIL 10 MG TAB PO SCH (07:33)
[2019-02-09] MEDS: ASCORBIC ACID 500 MG TAB PO SCH ×2 (07:33→17:55)
[2019-02-09] MEDS: VITAMIN B COMPLEX TAB PO SCH (07:33)
[2019-02-09] MEDS: ASPIRIN 81 MG ECTAB PO SCH ×2 (07:33→20:35)
[2019-02-09] MEDS: FERROUS GLUCONATE 324 MG TAB PO SCH ×2 (07:33→17:55)
[2019-02-09] MEDS: LACTOBACILLUS ACIDOPHILUS (FLORANEX) TAB PO SCH (07:34)
[2019-02-09] MEDS: carvediloL 6.25 MG TAB PO SCH (07:34)
[2019-02-09] MEDS: MULTIVITAMIN TAB PO SCH (07:34)
--- NOTE | 2019-02-09 08:18 | Progress Note ---
DATE: 02/09/2019 SUBJECTIVE: An 88-year-old white female postop day 4 from a right cemented bipolar hip arthroplasty. She is doing pretty well. Seems to be getting a little bit better each day. Pain is decreased. Really mostly just waiting for placement. She has apparently been denied rehab. OBJECTIVE: VITAL SIGNS: Temperature 36.4. Vital signs stable. GENERAL: Today shows a pleasant elderly female. She is sitting up in bed eating breakfast. EXTREMITIES: Examination of the right hip reveals leg lengths to be equal. Dressing is clean, dry and intact. Thigh is soft and supple. She is neurologically intact. ASSESSMENT: An 88-year-old white female postoperative day 4 from a right cemented bipolar hip arthroplasty, doing reasonably well medically. Really just waiting for placement. This elderly patient really would benefit from a rehab stay. PLAN: 1. DVT prophylaxis including thigh-high TEDs, SCDs, and aspirin twice a day. 2. PT/OT. Weight bear as tolerated. Right total hip protocol. 3. Pain control, doing pretty well with current pain regimen. 4. Disposition. Just waiting for placement.
[2019-02-09] MEDS: SIMVASTATIN 20 MG TAB PO SCH (20:34)
[2019-02-09] MEDS: CALCIUM 600MG + VIT D 400 IU TAB PO SCH (20:35)
[2019-02-09] MEDS: SENNA 8.6 MG TAB PO SCH (20:36)
[2019-02-09] MEDS: CHOLECALCIFEROL 1,000 UNITS TAB PO SCH (20:37)
[2019-02-09] MEDS: carvediloL 3.125 MG TAB PO SCH (20:37)
[2019-02-10] MEDS: LEVOTHYROXINE SODIUM 75 MCG TABLET PO SCH (05:11)
[2019-02-10] MEDS: ACETAMINOPHEN 500 MG TAB PO SCH ×3 (05:11→20:59)
[2019-02-10] MEDS: TRAMADOL HCL 50 MG TABLET PO PRN ×2 (05:13→20:53)
--- NOTE | 2019-02-10 07:57 | Progress Note ---
DATE: 02/10/2019 SUBJECTIVE: An 88-year-old white female postop day 5 from a right uncemented total hip replacement done for arthritis. She is doing pretty well. Making improvements daily. Really just waiting for placement. No chest pain or shortness of breath. Not feeling dizzy or lightheaded. OBJECTIVE: VITAL SIGNS: Temperature 36.4. Vital signs stable. GENERAL: Shows a pleasant elderly frail female. She is lying in bed, looks pretty comfortable. EXTREMITIES: Examination of the right hip reveals the dressing to be clean, dry and intact. Leg lengths were equal. Hip is located. She is neurologically intact. ASSESSMENT: An 88-year-old white female postoperative day 5 from a right hip replacement, doing pretty well. We are just waiting for placement. PLAN: 1. DVT prophylaxis including thigh-high TEDs, SCDs, and aspirin twice a day. 2. PT/OT. Weight bear as tolerated. Right total hip protocol. 3. Pain control, doing okay with current pain regimen. 4. Disposition: Plan to discharge to a rehab or snf facility. Just waiting for approval.
[2019-02-10] MEDS: DOCUSATE SODIUM 100 MG CAP PO SCH ×2 (08:36→20:55)
[2019-02-10] MEDS: ASPIRIN 81 MG ECTAB PO SCH ×2 (08:37→20:57)
[2019-02-10] MEDS: MULTIVITAMIN TAB PO SCH (08:37)
[2019-02-10] MEDS: MAGNESIUM OXIDE 400 MG TAB PO SCH (08:37)
[2019-02-10] MEDS: ASCORBIC ACID 500 MG TAB PO SCH ×2 (08:38→17:17)
[2019-02-10] MEDS: FERROUS GLUCONATE 324 MG TAB PO SCH ×2 (08:38→17:17)
[2019-02-10] MEDS: LACTOBACILLUS ACIDOPHILUS (FLORANEX) TAB PO SCH (08:39)
[2019-02-10] MEDS: LISINOPRIL 10 MG TAB PO SCH (08:39)
[2019-02-10] MEDS: carvediloL 6.25 MG TAB PO SCH (08:39)
[2019-02-10] MEDS: VITAMIN B COMPLEX TAB PO SCH (08:40)
[2019-02-10] MEDS: SENNA 8.6 MG TAB PO SCH (20:55)
[2019-02-10] MEDS: CALCIUM 600MG + VIT D 400 IU TAB PO SCH (20:56)
[2019-02-10] MEDS: SIMVASTATIN 20 MG TAB PO SCH (20:56)
[2019-02-10] MEDS: carvediloL 3.125 MG TAB PO SCH (20:57)
[2019-02-10] MEDS: CHOLECALCIFEROL 1,000 UNITS TAB PO SCH (20:58)
[2019-02-11] MEDS: LEVOTHYROXINE SODIUM 75 MCG TABLET PO SCH (05:39)
[2019-02-11] MEDS: ACETAMINOPHEN 500 MG TAB PO SCH ×2 (05:39→13:44)
[2019-02-11] MEDS: TRAMADOL HCL 50 MG TABLET PO PRN ×2 (07:46→16:50)
[2019-02-11] MEDS: ASPIRIN 81 MG ECTAB PO SCH (08:38)
[2019-02-11] MEDS: FERROUS GLUCONATE 324 MG TAB PO SCH (08:38)
[2019-02-11] MEDS: DOCUSATE SODIUM 100 MG CAP PO SCH (08:38)
[2019-02-11] MEDS: ASCORBIC ACID 500 MG TAB PO SCH (08:38)
[2019-02-11] MEDS: LACTOBACILLUS ACIDOPHILUS (FLORANEX) TAB PO SCH (08:39)
[2019-02-11] MEDS: MAGNESIUM OXIDE 400 MG TAB PO SCH (08:39)
[2019-02-11] MEDS: MULTIVITAMIN TAB PO SCH (08:40)
[2019-02-11] MEDS: VITAMIN B COMPLEX TAB PO SCH (08:40)
[2019-02-11] MEDS: carvediloL 6.25 MG TAB PO SCH (08:41)
[2019-02-11] MEDS: LISINOPRIL 10 MG TAB PO SCH (08:42)
--- NOTE | 2019-02-11 14:09 | Progress Note ---
DATE: 02/11/2019 SUBJECTIVE: An 88-year-old white female now postop day 6 from a right cemented bipolar hip arthroplasty. She has done pretty well. Pain seems to be getting better daily. Denies any chest pain or shortness of breath. Not feeling dizzy or lightheaded. OBJECTIVE: VITAL SIGNS: Temperature 36.5. Vital signs stable. GENERAL: Shows a pleasant elderly female. She is sitting up at her bedside chair and looks quite comfortable. EXTREMITIES: Examination of the right hip reveals the dressing to be clean, dry and intact. Leg lengths were equal. Hip is located. She is neurologically intact. ASSESSMENT: An 88-year-old white female postoperative day 6 from right total hip replacement, doing well. Really just waiting for placement. She has apparently been denied rehabilitation and there was a family appeal, which also got denied. PLAN: 1. DVT prophylaxis including thigh-high TEDs, SCDs, and aspirin twice a day. 2. PT/OT. Weight bear as tolerated. Right total hip protocol. 3. Pain control, doing okay with current pain regimen. 4. Disposition: I believe they decided to go home with some home health. Her [id number] is going to help and assist in her care. I would strongly refer to a rehab or a detention facility, but she has been denied rehab. Family has decided not to do the detention facility. Follow up in the clinic in about a week.
--- NOTE | 2019-02-15 01:48 | Discharge Summary ---
ADMITTING PHYSICIAN AND SURGEON: Dr. Hola Izquierdo. ADMITTING DIAGNOSES: 1. Right hip advanced degenerative joint disease. 2. Chronic right hip abductor avulsion. PROCEDURE PERFORMED: Right total hip arthroplasty and abductor repair. SECONDARY DIAGNOSES: Elevated cholesterol, hypertension, coronary artery disease, congestive heart failure, hypothyroidism, low back pain. CONSULTS: None obtained. HISTORY AND PHYSICAL EXAMINATION: Well documented in the patient's chart. HOSPITAL COURSE: The patient was admitted on 02/05/2019, underwent total hip arthroplasty, tolerated the procedure well. There were no complications. She was transferred to the PACU postoperatively and later to the orthopedic floor for further care. She was given Ancef for antibiotic prophylaxis, PADMINI stockings, SCDs and aspirin for DVT prophylaxis. Hemoglobin, hematocrit and vital signs were monitored during her hospital stay and remained stable. She did not require any blood transfusions. There were no complications. By postoperative day 6, she was tolerating a regular diet, pain was controlled with oral pain medicine. She was participating in physical therapy. Postop day 6, she had been awaiting placement at rehabilitation, but was then discharged home with home health services. She was given printed discharge instructions as well as new prescriptions for extra-strength Tylenol, aspirin and tramadol. Continue her home medicines. Continue physical therapy, weightbearing as tolerated, PADMINI stockings, total hip precautions. Follow up approximately 2 weeks postop or sooner if there are any problems or concerns.
== END 2019-02-11 17:33 | disposition home health service (06) | DRG 470 ==
LOC: ASU 06:36 → 3E 11:16

== ENCOUNTER 2021-04-18 11:38 | Inpatient (IN) ==
[2021-04-18 12:21] LABS: Basophils # (auto) 0.02 K/uL (0-0.2); Basophils % (auto) 0.2 %; Eosinophils # (auto) 0.12 K/uL (0-0.5); Eosinophils % (auto) 1.3 %; Hemoglobin 13.2 g/dL (12.0-16.0); Immature Granulocytes # (auto) 0.01 K/uL (0.00-0.02); Immature Granulocytes % (auto) 0.1 %; Lymphocytes # (auto) 1.55 K/uL (1.2-3.4); Lymphocytes % (auto) 17.4 %; Mean Corpuscular Hemoglobin 33.8 pg (25-34); Mean Corpuscular Hgb Conc 33.8 g/dL (32-36); Mean Platelet Volume 10.7 fL (7.4-10.4); Monocytes # (auto) 0.93 K/uL (0.11-0.59); Monocytes % (auto) 10.4 %; Neutrophils # (auto) 6.28 K/uL (1.4-6.5); Neutrophils % (auto) 70.6 %; Platelet Count 291 K/uL (130-400); RDW Coefficient of Variation 14.3 % (11.5-14.5); RDW Standard Deviation 52.3 fL (36.4-46.3); White Blood Count 8.91 K/uL (4.8-10.8)
[2021-04-18 12:31] LABS: Alanine Aminotransferase 18 U/L (12-78); Albumin Level 3.1 gm/dl (3.4-5.0); Aspartate Aminotransferase 21 U/L (15-37); Blood Urea Nitrogen 21 mg/dl (7-18); Calcium 8.6 mg/dl (8.5-10.1); Carbon Dioxide 28 mmol/L (21-32); Chloride 99 mmol/L (98-107); Glucose 108 mg/dl (70-99); Potassium 4.7 mmol/L (3.5-5.1); Sodium 135 mmol/L (136-145)
[2021-04-18 12:36] LABS: Albumin Globulin Ratio 0.8 (0.9-2); Alkaline Phosphatase 69 U/L (45-117); Bilirubin,Total 0.8 mg/dl (0.2-1); Globulin 3.8 gm/dl (2.5-4.0); INR 1.2 (0.9-1.1); Prothrombin Time 12.1 Seconds (9.0-12.0); Total Protein 6.9 gm/dl (6.4-8.2); Troponin I 0.035 ng/ml (0-0.045)
--- NOTE | 2021-04-18 12:36 | XRay Report ---
XR chest 1V portable CLINICAL HISTORY: Shortness of breath. COMPARISON STUDY: Chest radiograph January 23, 2019. FINDINGS: Patient is rotated. Severe degenerative changes of both shoulders with elevation of the hum eral heads is noted. There is no pneumothorax. Small left and trace right pleural effusions are noted . Left basilar opacity is present. Interstitial thickening favors mild pulmonary edema. Cardiomegaly. IMPRESSION: 1. Interstitial thickening suggestive of mild pulmonary edema. 2. Small left and trace right pleural effusions. Left basilar opacity could reflect atelectasis or co nsolidation. Radiographic follow-up to ensure resolution is recommended. ACT 112: Negative or not required by law. Electronically signed by: Derick Colmenares M.D. 04/18/2021 12:35 PM
--- NOTE | 2021-04-18 14:01 | Emergency Department Note ---
History of Present Illness General Chief complaint: Shortness of Breath/Dyspnea Stated complaint: SOB Time Seen by Provider: 04/18/21 13:34 Source: patient History of Present Illness Provider complaint: Shortness of breath Onset (ago): week(s) Location: chest Pain Consistency: + intermittent Maximum Pain Intensity: 0 Quality: + other (Short of breath) Relieved By: + other (When she sits upright, stretches and takes a deep breath) Exacerbated By: + other (Exertion) Associated symptoms: + shortness of breath; no chest pain, no cough, no fever/chills or no nausea/vomiting This is an 89-year-old female with a history of congestive heart failure presenting with shortness of breath intermittently for the past 2 to 3 weeks. The patient states that she feels breathless when she exerts herself. She states that sometimes when she sits up, stretches and takes a deep breath she feels better. She is usually hunched over according to her daughter and sometimes has issues with choking on her food. She has had no fever or cough. She does complain of diarrhea but this is chronic. She has been vaccinated for COVID-19 and has had no sick contacts. She denies any chest pain or discomfort. She has had no abdominal pain, vomiting, leg swelling or pain or urinary symp toms. She states that in 2005 she was diagnosed with CHF and she had an EF of 15. She states that more recently her EF has increased to 40. Home Medications Medication Instructions Recorded Confirmed Type multivitamin (Multiple Vitamins) 1 tab PO QAM 11/21/18 04/18/21 History cholecalciferol (vitamin D3) 50 4,000 unit PO QPM 01/21/19 04/18/21 History mcg (2,000 unit) capsule (Vitamin D3) vitamin B complex 1 tab PO DAILYBL 01/21/19 04/18/21 History aspirin 81 mg tablet,delayed 81 mg PO DAILYBD 06/25/20 04/18/21 History release (Adult Aspirin Regimen) blood pressure monitor #1 ea 06/25/20 02/24/21 Rx amoxicillin 875 mg-potassium 1 tab PO BID #20 tab 04/18/21 Rx clavulanate 125 mg tablet (Augmentin) calcium carbonate 600 mg calcium 600 mg PO DAILYBD 04/18/21 04/18/21 History (1,500 mg) tablet (Calcium) carvedilol 3.125 mg tablet 3.125 mg PO QDD 04/18/21 04/18/21 History carvedilol 6.25 mg tablet 6.25 mg PO DAILYBB 04/18/21 04/18/21 History levothyroxine 75 mcg tablet 75 mcg PO DAILYBB 04/18/21 04/18/21 History lisinopril 30 mg tablet 30 mg PO QDB 04/18/21 04/18/21 History sertraline 25 mg tablet 25 mg PO QDB 04/18/21 04/18/21 History simvastatin 20 mg tablet 20 mg PO QDD 04/18/21 04/18/21 History tramadol 50 mg tablet 50 mg PO .AM & 3PM 04/18/21 04/18/21 History turmeric 400 mg capsule 400 mg PO AMPM 04/18/21 04/18/21 History Allergies Allergy/AdvReac Type Severity Reaction Status Date / Time No Known Drug Allergies Allergy Verified 04/18/21 15:40 Past Med/Surg History Medical History Arthritis 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) Chronic leg pain Depression Gait instability Hearing decreased History of blood transfusion 15 years ago in setting of hip contusion Hyperlipidemia Hypertension Hypothyroidism LBBB (left bundle branch block) Nocturnal hypoxemia 2L O2 HS Poor eating habits Right shoulder pain SNHL (sensorineural hearing loss) Systolic CHF Urinary frequency Urinary incontinence Surgical History History of cataract surgery History of hip replacement LEFT History of oral surgery History of right hip replacement Hx of varicose vein ligation and stripping Family History Mother Osteoporosis Arthritis Father Cardiac arrest Myocardial infarction Denies family history of Colon cancer Ovarian cancer Prostate cancer Breast cancer Social History Smoking Status: Never smoker Second Hand Exposure: No; Hx Alcohol Use: Yes (Social/red wine) Alcohol type: wine Hx Substance Use: No Preferred Language: [place] Communication Ability: Effective Visual Impairment: No Limitations Hearing Ability: Use of Hearing Aid Beliefs That Will Affect Care: None marital status: / Current Living Situation: Family current occupational status: retired Feels Safe at Home: Yes Childhood Exposure to Second-Hand Smoke: No Dental Care, Regularly: No Physical Activity Frequency: Does not Exercise Seatbelt Use: always Sunscreen Use: No Assistive Devices: Walker Review of Systems See HPI for pertinent positives & negatives. and A total of 10 systems reviewed and were otherwise negative Physical Exam Vital Signs Vital Signs - 24 hr 04/18/21 11:45 04/18/21 13:37 04/18/21 13:57 Temperature 36.4 C L Temperature Source Temporal Artery Scan Pulse Rate 73 78 Pulse Rate from SpO2 Sensor 83 Respiratory Rate 18 17 Respiratory Effort / Characteristics Non-Labored Respiratory Depth Normal Blood Pressure 150/80 H Blood Pressure Mean 103 Pulse Oximetry 96 87 L Oxygen Delivery Method Room Air Room Air Room Air Oxygen Flow Rate Sepsis Recent Fever Within 48 Hours No Sepsis New/Unexplained Change in Mental Status No Sepsis Action Taken by Nursing No Action Required 04/18/21 14:00 04/18/21 14:30 04/18/21 15:13 Temperature Temperature Source Pulse Rate 81 75 86 Pulse Rate from SpO2 Sensor 78 78 Respiratory Rate 17 10 L 18 Respiratory Effort / Characteristics Respiratory Depth Blood Pressure 159/109 H Blood Pressure Mean 125 Pulse Oximetry 90 93 Oxygen Delivery Method Room Air Nasal Cannula Oxygen Flow Rate 2 Sepsis Recent Fever Within 48 Hours Sepsis New/Unexplained Change in Mental Status Sepsis Action Taken by Nursing 04/18/21 15:30 Temperature Temperature Source Pulse Rate 78 Pulse Rate from SpO2 Sensor 87 Respiratory Rate 17 Respiratory Effort / Characteristics Respiratory Depth Blood Pressure 161/85 H Blood Pressure Mean 110 Pulse Oximetry 100 Oxygen Delivery Method Oxygen Flow Rate Sepsis Recent Fever Within 48 Hours Sepsis New/Unexplained Change in Mental Status Sepsis Action Taken by Nursing Constitutional: Vital signs reviewed. Eyes: Pupils are equal round reactive to light. Conjunctiva are noninjected. ENT: Pharynx is clear without erythema or exudate. Mucous membranes are moist. Neck supple without meningeal signs. Respiratory: Clear to auscultation bilaterally. Breath sounds are equal bilaterally. Cardiovascular: Regular rate and rhythm. No rubs or gallops. GI: Soft, nondistended and nontender. Bowel sounds are present. Musculoskeletal: No peripheral edema. No lower extremity tenderness. Integumentary: No cyanosis. or jaundice. Neurological: The patient is awake and alert. No focal deficits. Psychiatric: Normal affect. Not anxious appearing. Course Administered Medications Discontinued Medications Furosemide (Furosemide 40 Mg/4 Ml Vial) 40 mg IV ONE STA Stop: 04/18/21 15:06 Last Admin: 04/18/21 15:35 Dose: 40 mg Documented by: [id number] Piperacillin Sod/Tazobactam Sod (Zosyn) 4.5 gm in 120 mls @ 240 mls/hr IV NOW ONE Stop: 04/18/21 15:17 Last Infusion: 04/18/21 16:24 Dose: 0 mls/hr Documented by: [id number] Admin: 04/18/21 15:35 Dose: 240 mls/hr Documented by: [id number] Medical Decision Making Differential Diagnosis CHF, pulmonary edema, anemia, pneumonia, anginal equivalent Medical Records Attestation: I reviewed the patient's medical records. I did perform a limited focused review of portions of the patient's old chart on the electronic medical record. The patient has had no recent pertinent visits to this hospital. Home Medications Current Medication List: was personally reviewed by me Laboratory Data Attestation: I reviewed the patient's lab results. Result diagrams: 04/18/21 12:03 04/18/21 12:03 Lab Results 04/18/21 04/18/21 04/18/21 Range/Units 12:03 12:03 12:03 WBC 8.91 (4.8-10.8) K/uL RBC 3.90 L (4.2-5.4) M/uL Hgb 13.2 (12.0-16.0) g/dL Hct 39.0 (37-47) % MCV 100.0 (80-100) fL MCH 33.8 (25-34) pg MCHC 33.8 (32-36) g/dL RDW Std Deviation 52.3 H (36.4-46.3) fL RDW Coeff of Liliya 14.3 (11.5-14.5) % Plt Count 291 (130-400) K/uL MPV 10.7 H (7.4-10.4) fL Immature Gran % (Auto) 0.1 % Neut % (Auto) 70.6 % Lymph % (Auto) 17.4 % [place] % (Auto) 10.4 % Eos % (Auto) 1.3 % Baso % (Auto) 0.2 % Neut # (Auto) 6.28 (1.4-6.5) K/uL Lymph # (Auto) 1.55 (1.2-3.4) K/uL [place] # (Auto) 0.93 H (0.11-0.59) K/uL Eos # (Auto) 0.12 (0-0.5) K/uL Baso # (Auto) 0.02 (0-0.2) K/uL Immature Gran # (Auto) 0.01 (0.00-0.02) K/uL PT 12.1 H (9.0-12.0) Seconds INR 1.2 H (0.9-1.1) APTT 27.0 (21.0-31.0) Seconds PTT Ratio 1.0 Sodium 135 L (136-145) mmol/L Potassium 4.7 (3.5-5.1) mmol/L Chloride 99 (98-107) mmol/L Carbon Dioxide 28 (21-32) mmol/L Anion Gap 7.0 (3-11) BUN 21 H (7-18) mg/dl Creatinine 0.83 (0.6-1.2) mg/dl Est Cr Clr Drug Dosing Not Reportable Est GFR ( Amer) 73.0 ml/min Est GFR (Non-Af Amer) 63.0 ml/min BUN/Creatinine Ratio 25.0 H (10-20) Glucose 108 H (70-99) mg/dl Lactate (0.4-2.0) mmol/L Calcium 8.6 (8.5-10.1) mg/dl Magnesium 2.0 (1.8-2.4) mg/dl Total Bilirubin 0.8 (0.2-1) mg/dl AST 21 (15-37) U/L ALT 18 (12-78) U/L Alkaline Phosphatase 69 (45-117) U/L Troponin I 0.035 (0-0.045) ng/ml NT-Pro-B Natriuret Pep (0-1800) pg/ml Total Protein 6.9 (6.4-8.2) gm/dl Albumin 3.1 L (3.4-5.0) gm/dl Globulin 3.8 (2.5-4.0) gm/dl Albumin/Globulin Ratio 0.8 L (0.9-2) SARS-CoV-2 (PCR) (Negative) 04/18/21 04/18/21 04/18/21 Range/Units 12:03 14:16 15:03 WBC (4.8-10.8) K/uL RBC (4.2-5.4) M/uL Hgb (12.0-16.0) g/dL Hct (37-47) % MCV (80-100) fL MCH (25-34) pg MCHC (32-36) g/dL RDW Std Deviation (36.4-46.3) fL RDW Coeff of Liliya (11.5-14.5) % Plt Count (130-400) K/uL MPV (7.4-10.4) fL Immature Gran % (Auto) % Neut % (Auto) % Lymph % (Auto) % [place] % (Auto) % Eos % (Auto) % Baso % (Auto) % Neut # (Auto) (1.4-6.5) K/uL Lymph # (Auto) (1.2-3.4) K/uL [place] # (Auto) (0.11-0.59) K/uL Eos # (Auto) (0-0.5) K/uL Baso # (Auto) (0-0.2) K/uL Immature Gran # (Auto) (0.00-0.02) K/uL PT (9.0-12.0) Seconds INR (0.9-1.1) APTT (21.0-31.0) Seconds PTT Ratio Sodium (136-145) mmol/L Potassium (3.5-5.1) mmol/L Chloride (98-107) mmol/L Carbon Dioxide (21-32) mmol/L Anion Gap (3-11) BUN (7-18) mg/dl Creatinine (0.6-1.2) mg/dl Est Cr Clr Drug Dosing Est GFR ( Amer) ml/min Est GFR (Non-Af Amer) ml/min BUN/Creatinine Ratio (10-20) Glucose (70-99) mg/dl Lactate 0.8 (0.4-2.0) mmol/L Calcium (8.5-10.1) mg/dl Magnesium (1.8-2.4) mg/dl Total Bilirubin (0.2-1) mg/dl AST (15-37) U/L ALT (12-78) U/L Alkaline Phosphatase (45-117) U/L Troponin I (0-0.045) ng/ml NT-Pro-B Natriuret Pep 42166 H (0-1800) pg/ml Total Protein (6.4-8.2) gm/dl Albumin (3.4-5.0) gm/dl Globulin (2.5-4.0) gm/dl Albumin/Globulin Ratio (0.9-2) SARS-CoV-2 (PCR) NEGATIVE (Negative) Imaging Data Radiologist's Impression: Chest X-Ray 04/18/21 11:50 XR chest 1V portable CLINICAL HISTORY: Shortness of breath. COMPARISON STUDY: Chest radiograph January 23, 2019. FINDINGS: Patient is rotated. Severe degenerative changes of both shoulders with elevation of the humeral heads is noted. There is no pneumothorax. Small left and trace right pleural effusions are noted. Left basilar opacity is present. Interstitial thickening favors mild pulmonary edema. Cardiomegaly. IMPRESSION: 1. Interstitial thickening suggestive of mild pulmonary edema. 2. Small left and trace right pleural effusions. Left basilar opacity could reflect atelectasis or consolidation. Radiographic follow-up to ensure resolution is recommended. ACT 112: Negative or not required by law. Electronically signed by: Derick Colmenares M.D. 04/18/2021 12:35 PM ECG Data Attestation: I personally reviewed and interpreted this ECG as follows: Indication: + SOB/dyspnea Rate (beats per minute): 76 Rhythm: + normal sinus ECG Intervals/blocks: + First degree AV block and + Left bundle branch block ECG Norman: + Left axis deviation ECG Findings: no PVCs Comparison ECG Date: from (January 23, 2019) Change: no significant change MDM Narrative I did evaluate the patient as noted above. IV access was established. I did place an order for continuous cardiac monitoring. The monitor showed normal sinus rhythm at a rate of 72 bpm. I did order and personally review the patient's 12-lead EKG as described above. She has an old left bundle branch block without evidence of acute ischemia using Scarbossa's criteria. I did order and personally reviewed the images of the patient's chest x-ray as described above. She has mild pulmonary edema and also has infiltrate in the left lower lobe which may represent pneumonia. I did order and review the sunny ent's blood work as noted in the electronic medical record. CBC is unremarkable without leukocytosis or anemia. INR slightly elevated 1.2. She is no longer on Coumadin. Electrolytes are unremarkable other than a sodium of 135. Troponin is negative. I did discuss the test results with the patient and her daughter. Her daughter states that she does have an issue with choking and aspiration so metimes and so I did recommend covering her for a possible pneumonia due to aspiration with Augmentin. She does have an appointment tomorrow to see her regular physician which she will keep. Initially the plan was to discharge her with Augmentin but when she was being discharged her pulse ox dropped down to 87 on room air. She has not on oxygen at home. She was placed on 2 L nasal cannula. I did order a COVID-19 test. I did discuss case with the hospitalist and employment evaluator/case manager. I did treat the patient with Zosyn after blood cultures were obtained. Impression & Plan Hypoxia, BATES (dyspnea on exertion), Left bundle branch block, Abnormal chest x- ray, Congestive heart failure Discharge Plan Visit Data Chief Complaint: Shortness of Breath/Dyspnea Stated Complaint: SOB ED Provider: Gold Alvarez Discharge Problem: Hypoxia, BATES (dyspnea on exertion), Left bundle branch block, Abnormal chest x- ray, Congestive heart failure Patient Disposition: Being Evaluated by Hospitalist Condition: Good Discharge Instructions Joshuames/Other Patient Handouts: ED Shortness of Breath (Dyspnea) Activity Restrictions/Additional Instructions: You have been examined and treated today on an emergency basis only. This is not a substitute for, or an effort to provide, complete comprehensive medical care. It is impossible to recognize and treat all injuries or illnesses in a single emergency department visit. It is therefore important that you follow up closely with your physician tomorrow per your appointment. Discuss any test results from today with your doctor which may include incidental findings not brought up by the physician today. Return for worsening symptoms or if you develop fever, vomiting, chest pain or any other concerning symptoms. Augmentin can cause diarrhea or lead to a bowel infection. Take probiotics to help prevent this. Interventions: ED Discharge Assessment Last Done: 04/18/21 14:13 Forms Stand Alone Forms: [facility], [facility] Emergency Department, Important Visit Information Prescriptions Prescriptions: New amoxicillin-pot clavulanate [Augmentin] 875-125 mg tablet 1 tab PO BID Qty: 20 RF: 0 No Action aspirin [Adult Aspirin Regimen] 81 mg tablet,delayed release (DR/EC) 81 mg PO DAILYBD RF: 0 (DME) blood pressure monitor Kit See Rx Instructions .ROUTE .MEDSUPPLY Qty: 1 RF: 0 multivitamin [Multiple Vitamins] tablet 1 tab PO QAM RF: 0 vitamin B complex Tablet 1 tab PO DAILYBL RF: 0 cholecalciferol (vitamin D3) [Vitamin D3] 2,000 unit Capsule 4,000 unit PO QPM RF: 0 calcium carbonate [Calcium 600] 600 mg calcium (1,500 mg) tablet 600 mg PO DAILYBD RF: 0 carvedilol 3.125 mg tablet 3.125 mg PO QDD RF: 0 carvedilol 6.25 mg tablet 6.25 mg PO DAILYBB RF: 0 levothyroxine 75 mcg tablet 75 mcg PO DAILYBB RF: 0 lisinopril 30 mg tablet 30 mg PO QDB RF: 0 sertraline 25 mg tablet 25 mg PO QDB RF: 0 simvastatin 20 mg tablet 20 mg PO QDD RF: 0 tramadol 50 mg tablet 50 mg PO .AM & 3PM RF: 0 turmeric 400 mg Capsule 400 mg PO AMPM RF: 0 Referrals Referrals: Manuel Perez MD [Primary Care Provider] - Discharge Problem: Congestive heart failure Qualifiers: Heart failure type: unspecified Heart failure chronicity: unspecified Qualified Code(s): I50.9 - Heart failure, unspecified
[2021-04-18] MEDS ORDERED: PIPERACILL/TAZOBAC CONSULT ACTIVE PRN (14:48)
[2021-04-18] MEDS ORDERED: PIPERACILLIN/TAZOBACTAM 4.5 GM/120 ML BAG IV ONE (14:48)
[2021-04-18] MEDS ORDERED: FUROSEMIDE 40 MG/4 ML VIAL IV STA (15:05)
--- NOTE | 2021-04-18 16:07 | History & Physical Report ---
Date of Service April 18, 2021 Assessment & Plan (1) Acute on chronic HFrEF (heart failure with reduced ejection fraction): Plan: Lasix 40mg IV now then daily Continue her usual carvedilol dosing Unless she is consuming excessive fluids will hold off on fluid restriction at current time Low Na, heart healthy diet Strict I&Os Daily weights Repeat TTE (2) Cardiomyopathy: Plan: Presumably ischemic - continue aspirin and simvastatin Continue carvedilol and lisinopril (3) Hypoxia: Plan: Previously on home O2 up until about a year ago. Likely to need 2 step prior to discharge. Consider nocturnal pulse ox if she does not qualify with 2 step as she mainly has a problem at night. Elevate HOB > 30 degrees at all times Secondary to CHF Aim O2 sats > 94% Suspect CXR changes not pneumonia with normal WBC and procalcitonin and history not suggestive of this, no further antibiotics prescribed. (4) Hypothyroidism: Plan: TSH WNL in September Continue levothyroxine 75 mcg PO daily (5) Hypertension: Plan: Continue her usual home meds with Lasix dosing as above (6) Osteoarthritis: Plan: Continue her usual tramadol dosing (7) Depression: Plan: Continue her home med sertraline 25mg PO daily Plan: VTE Prophylaxis - Lovenox 40mg SQ daily Diet - Low Na, heart healthy Disposition - admit to med/tele, PT/OT Admission and Anticipated Discharge Date Admission Date: April 18, 2021 History of Present Illness Chief Complaint: Shortness of breath, hypoxia Primary Care Provider: Manuel Perez MD Rayne Chan is an 89 year old female who presents to the ER with intermittent periods of breathless much worse over the last 2 days but progressively worse over the last 2 weeks. History is mostly taken from her daughter in law at bedside. No fever, chest pain, abdominal pain, chills, cough. Reports orthopnea but no PND, palpitations or claudication. He daughter in law has noticed her heart rate increasing with her shortness of breath over the last 2 weeks in addition. She does report intermittent choking after eating which she relates to her dentures. She has a longstanding history of congestive heart failure and cardiomyopathy with LVEF 10-15% in 2006 that improved with medical therapy and over the last year has not required any diuretics. Last echocardiogram LVEF 40- 45% in 12/2018. She reports previously being on oxygen mainly at night but this was discontinued approximately 1 year ago as she underwent tests that showed she no longer required it. In the ER CXR concerning for pulmonary edema + possible left base opacity with bilateral pleural effusion. She was given Zosyn to cover for possible aspiration pneumonia. She is currently requiring 2LPM O2 at rest to maintain O2 sats > 90%. She was referred to medicine for admission and ongoing management of left lower lobe pneumonia, hypoxia and CHF. Allergies Allergy/AdvReac Type Severity Reaction Status Date / Time No Known Drug Allergies Allergy Verified 04/18/21 15:40 Home Medications Medication Instructions Recorded Confirmed Type multivitamin (Multiple Vitamins) 1 tab PO QAM 11/21/18 04/18/21 History cholecalciferol (vitamin D3) 50 4,000 unit PO QPM 01/21/19 04/18/21 History mcg (2,000 unit) capsule (Vitamin D3) vitamin B complex 1 tab PO DAILYBL 01/21/19 04/18/21 History aspirin 81 mg tablet,delayed 81 mg PO DAILYBD 06/25/20 04/18/21 History release (Adult Aspirin Regimen) blood pressure monitor #1 ea 06/25/20 02/24/21 Rx amoxicillin 875 mg-potassium 1 tab PO BID #20 tab 04/18/21 Rx clavulanate 125 mg tablet (Augmentin) calcium carbonate 600 mg calcium 600 mg PO DAILYBD 04/18/21 04/18/21 History (1,500 mg) tablet (Calcium) carvedilol 3.125 mg tablet 3.125 mg PO QDD 04/18/21 04/18/21 History carvedilol 6.25 mg tablet 6.25 mg PO DAILYBB 04/18/21 04/18/21 History levothyroxine 75 mcg tablet 75 mcg PO DAILYBB 04/18/21 04/18/21 History lisinopril 30 mg tablet 30 mg PO QDB 04/18/21 04/18/21 History sertraline 25 mg tablet 25 mg PO QDB 04/18/21 04/18/21 History simvastatin 20 mg tablet 20 mg PO QDD 04/18/21 04/18/21 History tramadol 50 mg tablet 50 mg PO .AM & 3PM 04/18/21 04/18/21 History turmeric 400 mg capsule 400 mg PO AMPM 04/18/21 04/18/21 History Past Med/Surg History Medical History Arthritis 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) Chronic leg pain Depression Gait instability Hearing decreased History of blood transfusion 15 years ago in setting of hip contusion Hyperlipidemia Hypertension Hypothyroidism LBBB (left bundle branch block) Nocturnal hypoxemia 2L O2 HS Poor eating habits Right shoulder pain SNHL (sensorineural hearing loss) Systolic CHF Urinary frequency Urinary incontinence Surgical History History of cataract surgery History of hip replacement LEFT History of oral surgery History of right hip replacement Hx of varicose vein ligation and stripping Family History Mother Osteoporosis Arthritis Father Cardiac arrest Myocardial infarction Denies family history of Colon cancer Ovarian cancer Prostate cancer Breast cancer Social History Smoking Status: Unknown if ever smoked Second Hand Exposure: No; Hx Alcohol Use: No Hx Substance Use: No Preferred Language: P[place] Communication Ability: Effective Visual Impairment: No Limitations Hearing Ability: Use of Hearing Aid [employer] Required: No Beliefs That Will Affect Care: None marital status: / Current Living Situation: Family current occupational status: retired Feels Safe at Home: Yes Safety Concerns: Feels Safe At This Time Childhood Exposure to Second-Hand Smoke: No Dental Care, Regularly: No Physical Activity Frequency: Does not Exercise Seatbelt Use: always Sunscreen Use: No Assistive Devices: Walker Review of Systems Review of Systems: All systems reviewed & are unremarkable except as noted in HPI & below Physical Exam Constitutional: WD/WN, vitals as above + frail appearing Eyes: + anicteric sclerae; normal pupil size ENMT: Ears: + hearing impairment Respiratory: normal respiratory effort and able to speak in complete sentences; no respiratory distress, no labored breathing, no retractions, does not use accessory muscles, no cough and no audible wheezes Auscultation: + diminished lung sounds (bibasal); no crackles, no rales, no rhonchi and no wheezes Cardiovascular: Rate/Rhythm: regular rate and regular rhythm Heart Sounds: + murmur (systolic throughout, loudest apical) Extremities: normal capillary refill and + pedal edema (1+ pre-tibial); no calf tenderness Gastrointestinal (Abdomen): normal bowel sounds, soft, nontender, no hepatosplenomegaly Musculoskeletal: no cyanosis or clubbing, extremities motor strength 5/5 Skin: no rashes, warm and dry Neurologic: moves all extremities and awake; not confused Psychiatric: A+Ox3, euthymic affect Results & Data Results & Data ([facility]) Vital Signs (Past 12 Hours) Vital Signs Temp Pulse Resp BP Pulse Ox 04/18/21 15:30 78 17 161/85 H 100 04/18/21 15:13 86 18 04/18/21 14:30 75 10 L 159/109 H 93 04/18/21 14:00 81 17 90 04/18/21 13:37 78 17 87 L 04/18/21 11:45 36.4 C L 73 18 150/80 H 96 Laboratory Results Abnormal lab results 04/18/21 04/18/21 04/18/21 Range/Units 12:03 12:03 12:03 RBC 3.90 L (4.2-5.4) M/uL RDW Std Deviation 52.3 H (36.4-46.3) fL MPV 10.7 H (7.4-10.4) fL [place] # (Auto) 0.93 H (0.11-0.59) K/uL PT 12.1 H (9.0-12.0) Seconds INR 1.2 H (0.9-1.1) Sodium 135 L (136-145) mmol/L BUN 21 H (7-18) mg/dl BUN/Creatinine Ratio 25.0 H (10-20) Glucose 108 H (70-99) mg/dl NT-Pro-B Natriuret Pep (0-1800) pg/ml Albumin 3.1 L (3.4-5.0) gm/dl Albumin/Globulin Ratio 0.8 L (0.9-2) 04/18/21 Range/Units 12:03 RBC (4.2-5.4) M/uL RDW Std Deviation (36.4-46.3) fL MPV (7.4-10.4) fL [place] # (Auto) (0.11-0.59) K/uL PT (9.0-12.0) Seconds INR (0.9-1.1) Sodium (136-145) mmol/L BUN (7-18) mg/dl BUN/Creatinine Ratio (10-20) Glucose (70-99) mg/dl NT-Pro-B Natriuret Pep 44030 H (0-1800) pg/ml Albumin (3.4-5.0) gm/dl Albumin/Globulin Ratio (0.9-2) Diagnostic Findings XR chest 1V portable CLINICAL HISTORY: Shortness of breath. COMPARISON STUDY: Chest radiograph January 23, 2019. FINDINGS: Patient is rotated. Severe degenerative changes of both shoulders with elevation of the humeral heads is noted. There is no pneumothorax. Small left and trace right pleural effusions are noted. Left basilar opacity is present. Interstitial thickening favors mild pulmonary edema. Cardiomegaly. IMPRESSION: 1. Interstitial thickening suggestive of mild pulmonary edema. 2. Small left and trace right pleural effusions. Left basilar opacity could reflect atelectasis or consolidation. Radiographic follow-up to ensure resolution is recommended. Medications Administered ER Medications Given: Zosyn 4.5g IV ECG Indication: SOB/dyspnea Rate (beats per minute): 76 Rhythm: normal sinus Findings: + 1st degree AV block, + LBBB and + T-wave inversion (Lateral) Comparison ECG Date: from (January 23, 2019) Change: the following changes noted (Increased TWI in lateral leads) Code Status & VTE Plan Code Status Full - daughter in law wishes to discuss further with her (patients son and POA) prior to changing this VTE Prophylaxis Plan VTE Prophylaxis will be ordered: Yes PG Care Time/CCT Total # of Minutes Spent Total Time Spent with Patient: Total time spent is greater than 50% in coordination of care (as documented) at patient's floor/unit and/or counseling patient: Coding Level of Care Code 52297 Initial Inpt Care Lvl 3 Diagnoses Acute on chronic HFrEF (heart failure with reduced ejection fraction) I50.23 Hypoxia R09.02 Hypothyroidism E03.9 Hypertension I10 Cardiomyopathy I42.9 Osteoarthritis M19.90 Depression F32.9
[2021-04-18] MEDS ORDERED: NON-FORMULARY MEDICATION (Turmeric 400 mg Capsule) PO SCH (19:44)
[2021-04-18] MEDS ORDERED: ACETAMINOPHEN 325 MG TAB PO PRN (19:44)
[2021-04-18] MEDS ORDERED: MELATONIN 3 MG TAB PO PRN (21:50)
[2021-04-18] MEDS ORDERED: PATIENT'S HEIGHT AND/OR WEIGHT NEEDED SCH (22:00)
[2021-04-18] MEDS: carvediloL 3.125 MG TAB PO SCH (22:57)
[2021-04-18] MEDS: CHOLECALCIFEROL 1,000 UNITS 25 MCG TAB PO SCH (22:57)
[2021-04-18] MEDS: SIMVASTATIN 20 MG TAB PO SCH (22:57)
[2021-04-18] MEDS: ASPIRIN 81 MG ECTAB PO SCH (23:30)
[2021-04-18] MEDS ORDERED: Nursing to Pharmacy Communication SCH (23:30)
[2021-04-19] MEDS: carvediloL 6.25 MG TAB PO SCH (06:28)
[2021-04-19] MEDS: LEVOTHYROXINE SODIUM 75 MCG TABLET PO SCH (06:28)
[2021-04-19 09:12] LABS: Basophils # (auto) 0.01 K/uL (0-0.2); Basophils % (auto) 0.1 %; Eosinophils # (auto) 0.11 K/uL (0-0.5); Eosinophils % (auto) 1.1 %; Hematocrit (blood only) 39.1 % (37-47); Hemoglobin 13.3 g/dL (12.0-16.0); Immature Granulocytes # (auto) 0.03 K/uL (0.00-0.02); Immature Granulocytes % (auto) 0.3 %; Lymphocytes # (auto) 1.21 K/uL (1.2-3.4); Mean Corpuscular Hemoglobin 33.9 pg (25-34); Mean Corpuscular Volume 99.7 fL (80-100); Monocytes # (auto) 1.46 K/uL (0.11-0.59); Monocytes % (auto) 14.5 %; Neutrophils # (auto) 7.27 K/uL (1.4-6.5); Platelet Count 284 K/uL (130-400); RDW Coefficient of Variation 14.2 % (11.5-14.5); RDW Standard Deviation 51.6 fL (36.4-46.3); Red Blood Count 3.92 M/uL (4.2-5.4); White Blood Count 10.09 K/uL (4.8-10.8)
[2021-04-19 09:39] LABS: BUN Creatinine Ratio 23.8 (10-20); Calcium 8.8 mg/dl (8.5-10.1); Creatinine Clr Calc Pharmacy 34.9 ml/min; Est GFR (Non-African American) 58.7 ml/min; Potassium 3.8 mmol/L (3.5-5.1)
[2021-04-19] MEDS: VITAMIN B COMPLEX TAB PO SCH (09:40)
[2021-04-19] MEDS: SERTRALINE HCL 50 MG TABLET PO SCH (09:40)
[2021-04-19] MEDS: traMADol HCL 50 MG TABLET PO SCH ×2 (09:40→14:31)
[2021-04-19] MEDS: MULTIVITAMIN TAB PO SCH (09:40)
[2021-04-19] MEDS: lisinopril 10 MG TAB PO SCH (09:42)
[2021-04-19] MEDS: ENOXAPARIN INJ 40 MG/0.4 ML SYR SQ SCH (10:50)
--- NOTE | 2021-04-19 13:49 | Hospitalist Progress Note ---
Date of Service April 19, 2021 Assessment & Plan (1) Acute on chronic HFrEF (heart failure with reduced ejection fraction): Plan: Last EF was checked in 2019 with EF 45 - 50%. On admission, CXR showed mild pulmonary edema and BNP was 12,000. - Continue Lasix 40mg IV daily - Continue her usual carvedilol dosing - Low Na, heart healthy diet, strict I&Os, daily weights. - Repeat TTE pending - Already appears fairly euvolemic. Will hold Lasix until after AM BMP to ensure no over-diuresis. (2) Cardiomyopathy: Plan: Idiopathic per cardiology notes from 2019. [facility] in 1986 when she already smart d reduced EF. - Continue aspirin and simvastatin - Continue carvedilol and lisinopril (3) Hypoxia: Plan: Previously on home O2 up until about a year ago. Likely to need 2 step prior to discharge. Consider nocturnal pulse ox if she does not qualify with 2 step as she mainly has a problem at night. (4) Hypothyroidism: Plan: TSH WNL in September. - Continue levothyroxine 75 mcg PO daily (5) Hypertension: Plan: BP today is 140/50. - Continue her usual home meds as above (6) Osteoarthritis: Plan: - Continue her usual tramadol dosing (7) Depression: Plan: - Continue her home med sertraline 25mg PO daily (8) DVT prophylaxis: Plan: Lovenox 40mg SQ daily Admission and Anticipated Discharge Date Admission Date: April 18, 2021 Subjective Less shortness of breath today. No swelling in the legs. No major issues. Reports no fevers/chills, chest pain, abdominal pain, nausea, or vomiting. Physical Exam Constitutional: WD/WN, vitals as above Eyes: EOM intact bilaterally; no conjunctival abnormality ENMT: external ear and nose normal, oropharynx normal Neck: trachea midline, no thyromegaly normal visual inspection Respiratory: normal respiratory effort, lungs clear to auscultation no respiratory distress Cardiovascular: RRR, no murmur, no edema Gastrointestinal (Abdomen): Inspection/Auscultation: abdomen normal to inspection; abdomen not distended Musculoskeletal: no cyanosis or clubbing, extremities motor strength 5/5 Skin: no rashes, warm and dry Neurologic: moves all extremities and awake Psychiatric: Orientation: alert, oriented to person and cooperative Results & Data Results & Data ([facility]) Vital Signs (Past 12 Hours) Vital Signs Temp Pulse Pulse Resp BP BP Pulse Ox 04/19/21 08:00 36.8 C 69 18 137/49 L 97 04/19/21 06:21 63 04/19/21 04:00 36.4 C L 77 18 111/63 98 PG Care Time/CCT Total # of Minutes Spent Total Time Spent with Patient: Total time spent is greater than 50% in coordination of care (as documented) at patient's floor/unit and/or counseling patient: Coding Level of Care Code 19476 Subseq Hosp Care Lvl 3 Diagnoses Acute on chronic HFrEF (heart failure with reduced ejection fraction) I50.23 Cardiomyopathy I42.9 Hypoxia R09.02 Hypothyroidism E03.9 Hypertension I10 Osteoarthritis M19.90 Depression F32.9 DVT prophylaxis Z29.9
[2021-04-19] MEDS: CALCIUM 600MG + VIT D 400 IU TAB PO SCH (15:22)
[2021-04-19] MEDS: carvediloL 3.125 MG TAB PO SCH (15:23)
[2021-04-19] MEDS ORDERED: ASPIRIN 81 MG ECTAB PO SCH (15:30)
[2021-04-19] MEDS: SIMVASTATIN 20 MG TAB PO SCH (16:59)
--- NOTE | 2021-04-19 18:10 | XCELERA ---
[id number]
[2021-04-19] MEDS: CHOLECALCIFEROL 1,000 UNITS 25 MCG TAB PO SCH (21:12)
[2021-04-19] MEDS: ASPIRIN 81 MG ECTAB PO SCH (21:12)
[2021-04-20] MEDS: LEVOTHYROXINE SODIUM 75 MCG TABLET PO SCH (05:52)
--- NOTE | 2021-04-20 06:34 | Electrocardiogram Report ---
Test Reason : Blood Pressure : / mmHG Vent. Rate : 076 BPM Atrial Rate : 076 BPM P-R Int : 222 ms QRS Dur : 142 ms QT Int : 452 ms P-R-T Axes : 064 -66 113 degrees QTc Int : 508 ms Poor data quality, interpretation may be adversely affected Sinus rhythm with 1st degree A-V block with Premature supraventricular complexes Possible Left atrial enlargement Left axis deviation Left bundle branch block Abnormal ECG When compared with ECG of 23-JAN-2019 11:26, T wave inversion more evident in Anterolateral leads Confirmed by Darrian Patino ([id number]) on 04/20/2021 6:34:20 AM Referred By: Confirmed By:Darrian Patino
[2021-04-20] MEDS: carvediloL 6.25 MG TAB PO SCH (06:37)
[2021-04-20 08:01] LABS: Hematocrit (blood only) 38.6 % (37-47); Hemoglobin 12.7 g/dL (12.0-16.0); Mean Corpuscular Hemoglobin 33.6 pg (25-34); Mean Corpuscular Hgb Conc 32.9 g/dL (32-36); Mean Corpuscular Volume 102.1 fL (80-100); Mean Platelet Volume 10.5 fL (7.4-10.4); Platelet Count 261 K/uL (130-400); RDW Coefficient of Variation 14.2 % (11.5-14.5); RDW Standard Deviation 52.8 fL (36.4-46.3); Red Blood Count 3.78 M/uL (4.2-5.4); White Blood Count 9.17 K/uL (4.8-10.8)
[2021-04-20 08:37] LABS: BUN Creatinine Ratio 36.7 (10-20); Calcium 8.4 mg/dl (8.5-10.1); Creatinine Clr Calc Pharmacy 38.3 ml/min; Est GFR (African American) 70.9 ml/min; Est GFR (Non-African American) 61.2 ml/min; Potassium 4.4 mmol/L (3.5-5.1)
[2021-04-20] MEDS: traMADol HCL 50 MG TABLET PO SCH ×2 (09:03→14:42)
[2021-04-20] MEDS: lisinopril 10 MG TAB PO SCH (09:04)
[2021-04-20] MEDS: ENOXAPARIN INJ 40 MG/0.4 ML SYR SQ SCH (09:04)
[2021-04-20] MEDS: VITAMIN B COMPLEX TAB PO SCH (09:04)
[2021-04-20] MEDS: MULTIVITAMIN TAB PO SCH (09:04)
[2021-04-20] MEDS: SERTRALINE HCL 50 MG TABLET PO SCH (09:04)
--- NOTE | 2021-04-20 12:34 | Hospitalist Progress Note ---
Date of Service April 20, 2021 Assessment & Plan (1) Acute on chronic HFrEF (heart failure with reduced ejection fraction): Plan: Last EF was checked in 2019 with EF 45 - 50%. On admission, CXR showed mild pulmonary edema and BNP was 12,000. TTE this admission showed EF 25-30% and moderate concentric LVH. - Continue her usual carvedilol dosing - Low Na, heart healthy diet, strict I&Os, daily weights. - Already appears fairly euvolemic. Will start oral Lasix 20 mg PO and monitor. (2) Cardiomyopathy: Plan: Idiopathic per cardiology notes from 2019. [facility] in 1986 when she already had reduced EF. - Continue aspirin and simvastatin - Continue carvedilol and lisinopril (3) Hypoxia: Plan: Previously on home O2 up until about a year ago. Likely to need 2 step prior to discharge. Consider nocturnal pulse ox if she does not qualify with 2 step as she mainly has a problem at night. (4) Hypothyroidism: Plan: TSH WNL in September. - Continue levothyroxine 75 mcg PO daily (5) Hypertension: Plan: BP today is 150/50. - Continue her usual home meds as above (6) Osteoarthritis: Plan: - Continue her usual tramadol dosing (7) Depression: Plan: - Continue her home med sertraline 25mg PO daily (8) DVT prophylaxis: Plan: Lovenox 40mg SQ daily Admission and Anticipated Discharge Date Admission Date: April 18, 2021 Subjective Is quite upset because she feels that she didn't get her echo yet and wants one. Reports no fevers/chills, chest pain, shortness of breath, abdominal pain, nausea, or vomiting. Physical Exam Constitutional: WD/WN, vitals as above Eyes: EOM intact bilaterally; no conjunctival abnormality ENMT: external ear and nose normal, oropharynx normal Neck: trachea midline, no thyromegaly normal visual inspection Respiratory: normal respiratory effort, lungs clear to auscultation no respiratory distress Cardiovascular: RRR, no murmur, no edema Gastrointestinal (Abdomen): Inspection/Auscultation: abdomen normal to inspection; abdomen not distended Musculoskeletal: no cyanosis or clubbing, extremities motor strength 5/5 Skin: no rashes, warm and dry Neurologic: moves all extremities and awake Psychiatric: Orientation: alert, oriented to person and cooperative Results & Data Results & Data ([facility]) Vital Signs (Past 12 Hours) Vital Signs Temp Pulse Pulse Resp BP Pulse Ox 04/20/21 11:33 36.8 C 60 18 153/65 H 94 04/20/21 10:44 82 19 92 04/20/21 07:48 36.4 C L 68 18 116/66 96 04/20/21 07:18 74 04/20/21 06:34 36.4 C L 81 16 133/61 99 04/20/21 03:15 36.5 C 67 18 127/69 97 PG Care Time/CCT Total # of Minutes Spent Total Time Spent with Patient: Total time spent is greater than 50% in coordination of care (as documented) at patient's floor/unit and/or counseling patient: Coding Level of Care Code 78818 Subseq Hosp Care Lvl 3 Diagnoses Acute on chronic HFrEF (heart failure with reduced ejection fraction) I50.23 Cardiomyopathy I42.9 Hypoxia R09.02 Hypothyroidism E03.9 Hypertension I10 Osteoarthritis M19.90 Depression F32.9 DVT prophylaxis Z29.9
[2021-04-20] MEDS: FUROSEMIDE 20 MG TAB PO SCH (14:43)
[2021-04-20] MEDS: CALCIUM 600MG + VIT D 400 IU TAB PO SCH (16:38)
[2021-04-20] MEDS: carvediloL 3.125 MG TAB PO SCH (16:38)
[2021-04-20] MEDS: SIMVASTATIN 20 MG TAB PO SCH (16:38)
--- NOTE | 2021-04-20 19:56 | Cardiology Consultation ---
Date of Consultation April 20, 2021 Assessment & Plan (1) Acute on chronic HFrEF (heart failure with reduced ejection fraction): (2) Cardiomyopathy: (3) Aortic regurgitation: (4) Left bundle branch block: (5) Mitral regurgitation: (6) Pericardial effusion: (7) Pulmonary hypertension: ASSESSMENT/PLAN: 1. Acute on chronic heart failure with reduced EF: She does not appear to be hypervolemic this evening at the time of consultation. Can continue oral Lasix but monitor renal function closely. Discussed with her son and [id number], the importance of a low-sodium diet, less than 2000 mg daily and also daily weights. Recommended recording these weights and to bring to future appointments. While here, strict I&Os, daily weights, and low-sodium diet. Continue carvedilol and increase overall dose to 6.25 mg twice daily. Monitor for significant bradycardia. Continue ADITYA-inhibitor at current dose. If covered by insurance, could consider replacing lisinopril with Entresto after holding lisinopril for 36 hours. 2. Cardiomyopathy: Apparently her only cardiac catheterization occurred in 1986. Most recent myocardial perfusion study did not suggest ischemia. Cannot rule out CAD however. She has declined repeat ischemic evaluation in the past. She has declined ICD in the past if indicated and once again today stated that she would not want an ICD, as this was discussed given that her EF is now less than 35%. This is consistent with what her son also stated via telephone. Will attempt to optimize medical therapy by increasing carvedilol, if tolerated. Discussion of Entresto as above. Could consider spironolactone but would not make several medication changes at once if not necessary. 3. Pericardial effusion: Noted on 04/20/2021 echo but also noted on 2019 echo. Does not appear to be hemodynamically significant. 4. Mitral and aortic regurgitation: Non severe. Would not be contributing to her presentation. 5. Pulmonary hypertension: If she was hypervolemic at the time of her echo, hypervolemia may have contributed to her elevated RVSP. Cannot exclude pulmonary etiology. 6. Left bundle-branch block: Chronic issue. 7. Disposition: Recommend follow-up in the cardiology office. Recommended heart failure program with Tootie Hurtado. She and her family were agreeable. Please call Dr. Barnes with any other questions or concerns during this hospital stay, as he will be covering for the next several days. Thank you for allowing me to participate in the care of your patient. Please call for any other questions or concerns. Sincerely, Kevan Patino M.D. History of Present Illness Reason for Consultation: Systolic CHF Requesting Physician: Anthony Graham MD Attending Physician: Anthony Graham MD History of Present Illness Mrs. Chan is a pleasant 89-year-old female with a history significant for idiopathic cardiomyopathy diagnosed in 2006 with improvement of LV systolic function over time with medical therapy. She also has a history significant for LBBB, MR/TR, hypertension, hyperlipidemia, systolic CHF, and hypothyroidism. Her cardiac history begins in 1985 when she was diagnosed with mitral valve prolapse and LBBB. In 1986 she had an abnormal stress test and underwent cardiac catheterization, which according to her did not demonstrate any significant CAD. In April of 2006, she was found to have an EF of 10-15% and was diagnosed with systolic CHF, when she presented with orthopnea. On echo, a thrombus was noted in one of her cardiac chambers and Coumadin was started. Significant improvement was noted in her LV systolic function by 2006. In 2008, she became anemic and developed a bleed. Coumadin was discontinued. Because her LV systolic function was improved, Coreg and lisinopril were reduced. A repeat echo on 10/13/10 demonstrated moderately reduced LV systolic function with an EF of 35- 39% and mild AI. She has had the following studies: 1. Holter 10/12/10: Sinus rhythm. Rare PVCs. Occasional PVCs. Longest R-R interval less than 2.5 seconds, associated with blocked PACs or post-PVC beat. 2. Echo 12/06/12: Probably low normal LV systolic function. EF 50-55%. Poor quality study. Mild AI. Mild TR. 3. Echo 02/26/2015: Normal LV size with moderately reduced systolic function. EF 35-40%. Anterior septum appears hypokinetic and dyssynchronous. Mid to distal septum appeared dyskinetic. Basal septum, lateral wall, and distal inferior wall appears hypokinetic. Basal to mid inferior wall appeared severely hypokinetic to akinetic. Septal motion may be related to bundle-branch block. Mild MR. At least moderate TR. 4. Nuclear stress 01/23/2019: Negative for ischemia. Large fixed inferior, inferoseptal, inferolateral, and apical defects. EF 51%. [place] and mid to apical septum appeared dyskinetic. She was hospitalized on 04/18/2021 with progressively worsening shortness of breath which was felt to be acute on chronic systolic CHF per primary service. She was given intravenous diuretic. Fluid balance, if accurate, does not reflect a large diuresis, but she did no improvement. She states that she still has shortness of breath at times and felt better on supplemental oxygen which was discontinued today. She also recalls being on supplemental oxygen overnight at home approximately 1 year ago when it was discontinued. She had less shortness of breath at home when she had supplemental oxygen available to her. Leading up to this hospitalization, she also describes orthopnea but denied chest pain, palpitations, syncope, near-syncope, edema, or bleeding. I spoke with her son, Humphrey, and [id number], Leigha, via telephone this ev ening. Leigha prepares her food for her. She states that she does enjoy soup but she tries to prepare it for her, understanding that there is significant sodium in most pre prepared soups. In the past, she had been on higher doses of carvedilol. Records indicate that it was reduced once her LV systolic function improved. There is also some records suggesting that she had bradycardia overnight, but the details of the bradycardia are not well known, whether it was significant bradycardia or expected slower heart rates while sleeping. She does not take a diuretic at home currently. Her last visit in the cardiology office was part of a preoperative evaluation in 2019. Previous to that, her last visit was on 09/18/2016. At that time, she had been consistent in declining ischemic evaluation for her known cardiomyopathy. She also stated at that time that she would not want to undergo ICD for primary prevention. Review of systems: As above. Review of systems otherwise negative/unremarkable. Family history: No known premature CAD. Father had cardiac arrest at 75 years of age. Social history: Denies tobacco, alcohol, or drug abuse. She is a . Four children. She lives with her son and [id number] (Humphrey and Leigha). She is a retired computer teacher. She was alone in her hospital room. Allergies Allergy/AdvReac Type Severity Reaction Status Date / Time No Known Drug Allergies Allergy Verified 04/18/21 15:40 Home Medications Medication Instructions Recorded Confirmed Type multivitamin (Multiple Vitamins) 1 tab PO QAM 11/21/18 04/18/21 History cholecalciferol (vitamin D3) 50 4,000 unit PO QPM 01/21/19 04/18/21 History mcg (2,000 unit) capsule (Vitamin D3) vitamin B complex 1 tab PO DAILYBL 01/21/19 04/18/21 History aspirin 81 mg tablet,delayed 81 mg PO DAILYBD 06/25/20 04/18/21 History release (Adult Aspirin Regimen) blood pressure monitor #1 ea 06/25/20 02/24/21 Rx amoxicillin 875 mg-potassium 1 tab PO BID #20 tab 04/18/21 Rx clavulanate 125 mg tablet (Augmentin) calcium carbonate 600 mg calcium 600 mg PO DAILYBD 04/18/21 04/18/21 History (1,500 mg) tablet (Calcium) carvedilol 3.125 mg tablet 3.125 mg PO QDD 04/18/21 04/18/21 History carvedilol 6.25 mg tablet 6.25 mg PO DAILYBB 04/18/21 04/18/21 History levothyroxine 75 mcg tablet 75 mcg PO DAILYBB 04/18/21 04/18/21 History lisinopril 30 mg tablet 30 mg PO QDB 04/18/21 04/18/21 History sertraline 25 mg tablet 25 mg PO QDB 04/18/21 04/18/21 History simvastatin 20 mg tablet 20 mg PO QDD 04/18/21 04/18/21 History tramadol 50 mg tablet 50 mg PO .AM & 3PM 04/18/21 04/18/21 History turmeric 400 mg capsule 400 mg PO AMPM 04/18/21 04/18/21 History Patient History Medical History Arthritis Cardiomyopathy Chronic leg pain Chronic systolic CHF (congestive heart failure) Depression Gait instability Hearing decreased History of blood transfusion 15 years ago in setting of hip contusion Hyperlipidemia Hypertension Hypothyroidism LBBB (left bundle branch block) Nocturnal hypoxemia Poor eating habits Right shoulder pain SNHL (sensorineural hearing loss) Systolic CHF Urinary frequency Urinary incontinence Surgical History History of cataract surgery History of hip replacement LEFT History of oral surgery History of right hip replacement Hx of varicose vein ligation and stripping Family History Mother Osteoporosis Arthritis Father Cardiac arrest Myocardial infarction Denies family history of Colon cancer Ovarian cancer Prostate cancer Breast cancer Social History Smoking Status: Unknown if ever smoked Second Hand Exposure: No; Hx Alcohol Use: No Hx Substance Use: No Preferred Language: [place]itanian Communication Ability: Impaired Visual Impairment: No Limitations Hearing Ability: Use of Hearing Aid [employer] Supervisor Required: No Beliefs That Will Affect Care: None marital status: / Current Living Situation: Family current occupational status: retired Feels Safe at Home: Yes Safety Concerns: Feels Safe At This Time Childhood Exposure to Second-Hand Smoke: No Dental Care, Regularly: No Physical Activity Frequency: Does not Exercise Seatbelt Use: always Sunscreen Use: No Assistive Devices: Walker Physical Exam Physical Exam: Gen.: No acute distress. Alert. HEENT: Anicteric sclera. Neck: No JVD. No hepatic jugular reflux. No bruits. Normal carotid upstrokes bilaterally. Cardiac: PMI was nondisplaced. No ventricular heave. Regular. Normal S1-S2. No murmurs, rubs, or gallops. Pulmonary: Crackles at the left base, otherwise clear to auscultation. Abdomen: Soft, nontender, nondistended, with normoactive bowel sounds. No bruits noted. Extremities: 2+ radial pulses bilaterally. 2+ posterior tibialis pulses bilaterally. No edema or cyanosis. Psychiatric: Affect appears appropriate. Results & Data ([facility]) Vital Signs (Past 12 Hours) Vital Signs Temp Pulse Pulse Resp BP Pulse Ox 04/20/21 19:50 37 C 95 H 18 124/69 92 04/20/21 15:21 84 04/20/21 14:58 36.8 C 80 20 110/63 92 04/20/21 11:33 36.8 C 60 18 153/65 H 94 04/20/21 10:44 82 19 92 Intake & Output 04/18/21 04/19/21 04/20/21 04/21/21 06:59 06:59 06:59 06:59 Intake Total 220 / 220 340 / 340 360 / 360 Output Total 500 / 500 175 / 175 250 / 250 Balance -280 / -280 165 / 165 110 / 110 Weight 110 lb 7.225 oz 113 lb 5.082 oz Laboratory Results Laboratory Results - last 24 hr 04/20/21 04/20/21 07:42 07:42 WBC 9.17 RBC 3.78 L Hgb 12.7 Hct 38.6 MCV 102.1 H MCH 33.6 MCHC 32.9 RDW Std Deviation 52.8 H RDW Coeff of Liliya 14.2 Plt Count 261 MPV 10.5 H Sodium 137 Potassium 4.4 D Chloride 100 Carbon Dioxide 33 H Anion Gap 4.0 BUN 31 H Creatinine 0.85 Est Cr Clr Drug Dosing 38.3 Est GFR ( Amer) 70.9 Est GFR (Non-Af Amer) 61.2 BUN/Creatinine Ratio 36.7 H Glucose 93 Calcium 8.4 L Magnesium 2.0 Diagnostic Findings Echo 04/19/2021: Normal LV size. EF 25-30%. Akinesis of inferior wall, mid to distal septum, mid anteroseptum. Otherwise global hypokinesis. Moderate LVH. Sclerotic aortic valve with mild AI. Mild to moderate MR. Mild to moderate TR. RVSP approximately 40. Small pericardial effusion without echocardiographic evidence of tamponade physiology. Compared to prior study on 01/15/2019, LV systolic function has declined. ECG personally reviewed 04/18/2021: Sinus rhythm with first-degree AV block and PACs. LBBB. Chart reviewed. Chest x-ray 04/18/2021: Interstitial thickening per Radiology. Small left and trace right pleural effusions. Left basilar opacity. Medications Administered Current Inpatient Medications Acetaminophen (Acetaminophen 325 Mg Tab) 650 mg PO Q4H PRN PRN Reason: Pain or Fever Stop: 05/18/21 19:43 Aspirin (Aspirin 81 Mg Ectab) 81 mg PO HS PETE Stop: 05/18/21 22:44 Last Admin: 04/19/21 21:12 Dose: 81 mg Documented by: Carvedilol (Carvedilol 6.25 Mg Tab) 6.25 mg PO DAILYBB PETE Stop: 05/19/21 06:29 Last Admin: 04/20/21 06:37 Dose: 6.25 mg Documented by: Carvedilol (Carvedilol 3.125 Mg Tab) 3.125 mg PO QDD PETE Stop: 05/18/21 19:43 Last Admin: 04/20/21 16:38 Dose: 3.125 mg Documented by: Enoxaparin Sodium (Enoxaparin Inj 40 Mg/0.4 Ml Syr) 40 mg SQ QAM [facility] Stop: 05/19/21 08:59 Last Admin: 04/20/21 09:04 Dose: 40 mg Documented by: Furosemide (Furosemide 20 Mg Tab) 20 mg PO QAM [facility] Stop: 05/20/21 12:44 Last Admin: 04/20/21 14:43 Dose: 20 mg Documented by: Levothyroxine Sodium (Levothyroxine Sodium 75 Mcg Tablet) 75 mcg PO DAILYBB [facility] Stop: 05/19/21 06:29 Last Admin: 04/20/21 05:52 Dose: 75 mcg Documented by: Lisinopril (Lisinopril 10 Mg Tab) 30 mg PO QDB [facility] Stop: 05/19/21 07:29 Last Admin: 04/20/21 09:04 Dose: 30 mg Documented by: Melatonin (Melatonin 3 Mg Tab) 3 mg PO HS PRN PRN Reason: Sleep Stop: 05/18/21 21:49 Multivitamins (Multivitamin Tab) 1 tab PO QAM [facility] Stop: 05/19/21 08:59 Last Admin: 04/20/21 09:04 Dose: 1 tab Documented by: Multivitamins/Minerals (Calcium 600mg + Vit D 400 Iu Tab) 1 tab PO DAILYBD [facility] Stop: 05/19/21 15:29 Last Admin: 04/20/21 16:38 Dose: 1 tab Documented by: Sertraline HCl (Sertraline Hcl 50 Mg Tablet) 25 mg PO QDB [facility] Stop: 05/19/21 07:29 Last Admin: 04/20/21 09:04 Dose: 25 mg Documented by: Simvastatin (Simvastatin 20 Mg Tab) 20 mg PO QDD [facility] Stop: 05/18/21 19:43 Last Admin: 04/20/21 16:38 Dose: 20 mg Documented by: Tramadol HCl (Tramadol Hcl 50 Mg Tablet) 50 mg PO BID@0900,1500 [facility] Stop: 05/19/21 08:59 Last Admin: 04/20/21 14:42 Dose: 50 mg Documented by: Vitamin B Complex (Vitamin B Complex Tab) 1 tab PO DAILYBL [facility] Stop: 05/19/21 10:29 Last Admin: 04/20/21 09:04 Dose: 1 tab Documented by: Vitamin D (Cholecalciferol 1,000 Units 25 Mcg Tab) 1,000 units PO QPM [facility] Stop: 05/18/21 20:59 Last Admin: 04/19/21 21:12 Dose: 1,000 units Documented by: PG Care Time/CCT Total # of Minutes Spent Total Time Spent with Patient: Total time spent is greater than 50% in coordination of care (as documented) at patient's floor/unit and/or counseling patient: Coding Level of Care Code 33695 Initial Inpt Care Lvl 3 Diagnoses Cardiomyopathy I42.9 Aortic regurgitation I35.1 Left bundle branch block I44.7 Mitral regurgitation I34.0 Pericardial effusion I31.3 Pulmonary hypertension I27.20 Acute on chronic HFrEF (heart failure with reduced ejection fraction) I50.23
[2021-04-20] MEDS ORDERED: carvediloL 3.125 MG TAB PO ONE (20:01)
[2021-04-20] MEDS: ASPIRIN 81 MG ECTAB PO SCH (20:07)
[2021-04-20] MEDS: CHOLECALCIFEROL 1,000 UNITS 25 MCG TAB PO SCH (20:08)
[2021-04-21] MEDS: LEVOTHYROXINE SODIUM 75 MCG TABLET PO SCH (05:34)
[2021-04-21 06:42] LABS: Hematocrit (blood only) 37.6 % (37-47); Hemoglobin 12.7 g/dL (12.0-16.0); Mean Corpuscular Hemoglobin 34.2 pg (25-34); Mean Corpuscular Hgb Conc 33.8 g/dL (32-36); Mean Corpuscular Volume 101.3 fL (80-100); Mean Platelet Volume 10.7 fL (7.4-10.4); Platelet Count 278 K/uL (130-400); RDW Coefficient of Variation 13.9 % (11.5-14.5); Red Blood Count 3.71 M/uL (4.2-5.4); White Blood Count 8.64 K/uL (4.8-10.8)
[2021-04-21 07:16] LABS: BUN Creatinine Ratio 43.1 (10-20); Calcium 8.9 mg/dl (8.5-10.1); Creatinine Clr Calc Pharmacy 36.8 ml/min; Est GFR (African American) 70.9 ml/min; Est GFR (Non-African American) 61.2 ml/min; Magnesium 2.1 mg/dl (1.8-2.4); Potassium 3.9 mmol/L (3.5-5.1)
[2021-04-21] MEDS: traMADol HCL 50 MG TABLET PO SCH ×2 (08:59→17:00)
[2021-04-21] MEDS: carvediloL 6.25 MG TAB PO SCH ×2 (08:59→20:09)
[2021-04-21] MEDS: VITAMIN B COMPLEX TAB PO SCH (09:00)
[2021-04-21] MEDS: FUROSEMIDE 20 MG TAB PO SCH (09:00)
[2021-04-21] MEDS: SERTRALINE HCL 50 MG TABLET PO SCH (09:00)
[2021-04-21] MEDS: lisinopril 10 MG TAB PO SCH (09:00)
[2021-04-21] MEDS: MULTIVITAMIN TAB PO SCH (09:00)
[2021-04-21] MEDS: ENOXAPARIN INJ 40 MG/0.4 ML SYR SQ SCH (09:01)
--- NOTE | 2021-04-21 11:59 | XRay Report ---
XR chest 1V portable CLINICAL HISTORY: SOB, hypoxemia, CHF COMPARISON STUDY: Chest radiograph April 18, 2021 FINDINGS: Incidental note is made of severe degenerative changes of both shoulders with elevation of the humeral heads. Cardiomegaly is noted. Small left pleural effusion is noted. There is a trace righ t pleural effusion. Left basilar opacity persists. Interstitial thickening has improved. IMPRESSION: 1. Interval improvement in pulmonary edema. 2. Persistent small left pleural effusion with left basilar opacity. Continued radiographic follow-up is recommended. Trace right pleural effusion. ACT 112: Negative or not required by law. Electronically signed by: Derick Colmenares M.D. 04/21/2021 11:58 AM
--- NOTE | 2021-04-21 15:48 | Hospitalist Progress Note ---
Date of Service April 21, 2021 Assessment & Plan (1) Acute on chronic HFrEF (heart failure with reduced ejection fraction): Plan: Last EF was checked in 2019 with EF 45 - 50%. On admission, CXR showed mild pulmonary edema and BNP was 12,000. TTE this admission showed EF 25-30% and moderate concentric LVH. - Continue carvedilol dosing -> Dose increased by cardiology. - Low Na, heart healthy diet, strict I&Os, daily weights. - Already appears euvolemic. Will hold Lasix tomorrow until Cr back. (2) Cardiomyopathy: Plan: Idiopathic per cardiology notes from 2019. [facility] in 1986 when she already had reduced EF. - Continue aspirin and simvastatin - Continue carvedilol and lisinopril (3) Hypoxia: Plan: Previously on home O2 up until about a year ago. Likely to need 2 step prior to discharge. - Qualifies for nocturnal O2. - Will try 2-step tomorrow. Too tired to do it today. (4) Hypothyroidism: Plan: TSH WNL in September. - Continue levothyroxine 75 mcg PO daily (5) Hypertension: Plan: BP today is 125/50. - Continue her usual home meds as above (6) Osteoarthritis: Plan: - Continue her usual tramadol dosing (7) Depression: Plan: - Continue her home med sertraline 25mg PO daily (8) DVT prophylaxis: Plan: Lovenox 40mg SQ daily Admission and Anticipated Discharge Date Admission Date: April 18, 2021 Subjective Very tired today. She reports her breathing is worse today. Reports no fevers/chills, chest pain, abdominal pain, nausea, or vomiting. Physical Exam Constitutional: WD/WN, vitals as above Eyes: EOM intact bilaterally; no conjunctival abnormality ENMT: external ear and nose normal, oropharynx normal Neck: trachea midline, no thyromegaly normal visual inspection Respiratory: normal respiratory effort, lungs clear to auscultation no respiratory distress Cardiovascular: RRR, no murmur, no edema Gastrointestinal (Abdomen): Inspection/Auscultation: abdomen normal to inspection; abdomen not distended Musculoskeletal: no cyanosis or clubbing, extremities motor strength 5/5 Skin: no rashes, warm and dry Neurologic: moves all extremities and awake Psychiatric: Orientation: alert, oriented to person and cooperative Results & Data Results & Data ([facility]) Vital Signs (Past 12 Hours) Vital Signs Temp Pulse Pulse Pulse Pulse Pulse Resp 04/21/21 15:14 71 04/21/21 14:22 102 H 83 72 04/21/21 11:43 37.1 C 74 19 04/21/21 11:10 77 04/21/21 07:52 36.9 C 86 19 04/21/21 04:00 36.7 C 88 20 Resp Resp Resp BP Pulse Ox Pulse Ox Pulse Ox 04/21/21 15:14 04/21/21 14:22 20 16 16 92 96 04/21/21 11:43 126/57 L 93 04/21/21 11:10 04/21/21 07:52 153/68 H 95 04/21/21 04:00 134/61 92 Pulse Ox 04/21/21 15:14 04/21/21 14:22 95 04/21/21 11:43 04/21/21 11:10 04/21/21 07:52 04/21/21 04:00 PG Care Time/CCT Total # of Minutes Spent Total Time Spent with Patient: Total time spent is greater than 50% in coordination of care (as documented) at patient's floor/unit and/or counseling patient: Coding Level of Care Code 70002 Subseq Hosp Care Lvl 2 Diagnoses Acute on chronic HFrEF (heart failure with reduced ejection fraction) I50.23 Cardiomyopathy I42.9 Hypoxia R09.02 Hypothyroidism E03.9 Hypertension I10 Osteoarthritis M19.90 Depression F32.9 DVT prophylaxis Z29.9
[2021-04-21] MEDS: SIMVASTATIN 20 MG TAB PO SCH (17:00)
[2021-04-21] MEDS: CALCIUM 600MG + VIT D 400 IU TAB PO SCH (17:00)
[2021-04-21] MEDS: ASPIRIN 81 MG ECTAB PO SCH (20:09)
[2021-04-21] MEDS: CHOLECALCIFEROL 1,000 UNITS 25 MCG TAB PO SCH (20:10)
[2021-04-22] MEDS: LEVOTHYROXINE SODIUM 75 MCG TABLET PO SCH (05:43)
[2021-04-22 06:57] LABS: Hematocrit (blood only) 36.4 % (37-47); Hemoglobin 12.4 g/dL (12.0-16.0); Mean Corpuscular Hemoglobin 34.1 pg (25-34); Mean Corpuscular Hgb Conc 34.1 g/dL (32-36); Mean Platelet Volume 10.7 fL (7.4-10.4); Platelet Count 265 K/uL (130-400); RDW Coefficient of Variation 13.8 % (11.5-14.5); RDW Standard Deviation 50.2 fL (36.4-46.3); Red Blood Count 3.64 M/uL (4.2-5.4); White Blood Count 7.87 K/uL (4.8-10.8)
[2021-04-22 07:27] LABS: BUN Creatinine Ratio 41.9 (10-20); Calcium 8.9 mg/dl (8.5-10.1); Creatinine Clr Calc Pharmacy 53.6 ml/min; Est GFR (African American) 93.8 ml/min; Est GFR (Non-African American) 80.9 ml/min; Magnesium 1.8 mg/dl (1.8-2.4); Potassium 4.2 mmol/L (3.5-5.1)
[2021-04-22] MEDS: SERTRALINE HCL 50 MG TABLET PO SCH (07:31)
[2021-04-22] MEDS: ENOXAPARIN INJ 40 MG/0.4 ML SYR SQ SCH (07:31)
[2021-04-22] MEDS: MULTIVITAMIN TAB PO SCH (07:32)
[2021-04-22] MEDS: lisinopril 10 MG TAB PO SCH (07:32)
[2021-04-22] MEDS: carvediloL 6.25 MG TAB PO SCH (07:32)
[2021-04-22] MEDS: traMADol HCL 50 MG TABLET PO SCH (07:37)
[2021-04-22] MEDS: VITAMIN B COMPLEX TAB PO SCH (09:48)
--- NOTE | 2021-04-22 15:14 | Discharge Summary ---
Date of Service April 22, 2021 Admission HPI Per Admitting Provider Rayne Chan is an 89 year old female who presents to the ER with intermittent periods of breathless much worse over the last 2 days but progressively worse over the last 2 weeks. History is mostly taken from her daughter in law at bedside. No fever, chest pain, abdominal pain, chills, cough. Reports orthopnea but no PND, palpitations or claudication. He daughter in law has noticed her heart rate increasing with her shortness of breath over the last 2 weeks in addition. She does report intermittent choking after eating which she relates to her dentures. She has a longstanding history of congestive heart failure and cardiomyopathy with LVEF 10-15% in 2006 that improved with medical therapy and over the last year has not required any diuretics. Last echocardiogram LVEF 40- 45% in 12/2018. She reports previously being on oxygen mainly at night but this was discontinued approximately 1 year ago as she underwent tests that showed she no longer required it. In the ER CXR concerning for pulmonary edema + possible left base opacity with bilateral pleural effusion. She was given Zosyn to cover for possible aspiration pneumonia. She is currently requiring 2LPM O2 at rest to maintain O2 sats > 90%. She was referred to medicine for admission and ongoing management of left lower lobe pneumonia, hypoxia and CHF. Principal Diagnosis Acute systolic CHF exacerbation Discharge Exam Constitutional WD/WN, vitals as above Eyes EOM intact bilaterally; no conjunctival abnormality ENMT external ear and nose normal, oropharynx normal Neck trachea midline, no thyromegaly normal visual inspection Respiratory normal respiratory effort, lungs clear to auscultation no respiratory distress Cardiovascular RRR, no murmur, no edema Gastrointestinal (Abdomen) Inspection/Auscultation: abdomen normal to inspection; abdomen not distended Musculoskeletal no cyanosis or clubbing, extremities motor strength 5/5 Skin no rashes, warm and dry Neurologic moves all extremities and awake Psychiatric Orientation: alert, oriented to person and cooperative Discharge Data Allergies Allergy/AdvReac Type Severity Reaction Status Date / Time No Known Drug Allergies Allergy Verified 04/18/21 15:40 Consultations 04/18/21 14:48 ED Decision to Admit Stat 04/20/21 16:33 Consult Cardiology Routine Hospital Course (1) Acute on chronic HFrEF (heart failure with reduced ejection fraction): Last EF was checked in 2018 with EF 45 - 50%. On admission, CXR showed mild pulmonary edema and BNP was 12,000. TTE this admission showed EF 25-30% and moderate concentric LVH. - Continue carvedilol dosing - Low Na, heart healthy diet, strict I&Os, daily weights. - Appears euvolemic. Dry weight ~50 - 51 kg. Encouraged to weigh self at home daily. Lasix PRN prescribed. Will follow up with Dr. Patino and Tootie Hurtado. Will follow fairly strict Na diet per son. (2) Cardiomyopathy: Idiopathic per cardiology notes from 2019. [facility] when she a lready had reduced EF. - Continue aspirin and simvastatin - Continue carvedilol and lisinopril (3) Hypoxia: Previously on home O2 up until about a year ago. Likely to need 2 step prior to discharge. - Qualifies for nocturnal O2. - Did not qualify for daytime O2. (4) Hypothyroidism: TSH WNL in September. - Continue levothyroxine 75 mcg PO daily (5) Hypertension: BP today is 125/50. - Continue her usual home meds as above (6) Osteoarthritis: - Continue her usual tramadol dosing (7) Depression: - Continue her home med sertraline 25mg PO daily (8) DVT prophylaxis: Lovenox 40mg SQ daily Total Time Total Time Spent Total Time Spent (In Minutes): 35 Discharge Plan Discharge Items Patient Disposition: Home - Self-Care Reason For Visit: ACUTE CONGESTIVE HEART FAILURE, ASPIRATION PNEUMON Discharge Diagnosis: Acute heart failure Condition on Discharge: Good Activity: Resume your previous activity Non-emergency contact: Primary Care Provider Call non-emergency contact if: your symptoms worsen Follow-up/Referrals: Manuel Perez MD [Primary Care Provider] - Darrian Patino MD [Physician] - Tootie Hurtado PA-C [Physician Bowling Ball Assembler] - (Please arrange a visit with Tootie Hurtado next week.) Diet: Heart Healthy and Low Sodium (2gm) Addtl Attending Provider Instructions: Ms. Chan, You were admitted to the hospital with shortness of breath that was caused by heart failure. This is a long-standing issue that unfortunately has been gradually getting worse. Please see Dr. Patino in the office along with Tootie Hurtado to help manage your fluid and keep you feeling well. While you were here, you did qualify for overnight oxygen which we have helped arrange. You did not need any oxygen while you were awake, even while you were up and walking. Your weight here is right at 51 kg. Please weigh yourself on a home scale and write down this weight. Every morning, please use the restroom, then weigh yourself in about the same amount of clothing. Keep track of these weights, and if you go up more than 1-2 lbs, please take a dose of the Lasix that day and call Tootie Hurtado. Please follow a low-sodium diet to help keep fluid off your lungs. Pending Studies at Discharge: No Stand-Alone Forms: [facility], Smoking Cessation Medications and DC Order Prescriptions: New furosemide 20 mg tablet 20 mg PO DAILY PRN (Reason: weight gain) Qty: 30 RF: 0 Continued aspirin [Adult Aspirin Regimen] 81 mg tablet,delayed release (DR/EC) 81 mg PO DAILYBD RF: 0 (DME) blood pressure monitor Kit See Rx Instructions .ROUTE .MEDSUPPLY Qty: 1 RF: 0 multivitamin [Multiple Vitamins] tablet 1 tab PO QAM RF: 0 vitamin B complex Tablet 1 tab PO DAILYBL RF: 0 cholecalciferol (vitamin D3) [Vitamin D3] 2,000 unit Capsule 4,000 unit PO QPM RF: 0 calcium carbonate [Calcium 600] 600 mg calcium (1,500 mg) tablet 600 mg PO DAILYBD RF: 0 carvedilol 3.125 mg tablet 3.125 mg PO QDD RF: 0 carvedilol 6.25 mg tablet 6.25 mg PO DAILYBB RF: 0 levothyroxine 75 mcg tablet 75 mcg PO DAILYBB RF: 0 lisinopril 30 mg tablet 30 mg PO QDB RF: 0 sertraline 25 mg tablet 25 mg PO QDB RF: 0 simvastatin 20 mg tablet 20 mg PO QDD RF: 0 tramadol 50 mg tablet 50 mg PO .AM & 3PM RF: 0 turmeric 400 mg Capsule 400 mg PO AMPM RF: 0 Discharge Orders: Discharge Order (Routine); Ordered 04/22/21 Ordered By: Anthony Graham Admission Data Admit Date/Time: 04/18/21 16:18 Attending Provider: Anthony Graham Admit Provider: García Bowling Primary Care Provider: Manuel Perez V. Other Providers: Anthony Graham ; Darrian Patino Other Interventions: Discharge Summary Assessment (RN) Last Done: 04/22/21 13:09 Coding Level of Care Code D/C DAY MANAGEMENT >30 MINS Diagnoses Acute on chronic HFrEF (heart failure with reduced ejection fraction) I50.23 Cardiomyopathy I42.9 Hypoxia R09.02 Hypothyroidism E03.9 Hypertension I10 Osteoarthritis M19.90 Depression F32.9 DVT prophylaxis Z29.9
== END 2021-04-22 14:51 | disposition home or self-care (01) | DRG 291 ==
LOC: ED 11:38 → SUATTDRO 16:18 → EDINP 16:18 → 2N 21:30 → 2W 04-22 09:52